=== PATIENT | male | born 1935 | race Caucasian/White ===

== ENCOUNTER → 2021-01-03 12:52 | Outpatient (CLI) | payer MEDICARE, SELFPAY ==
--- NOTE | 2021-01-03 12:55 | DI.MRI.S_ITS ---
PROCEDURE: MR LUMBAR SPINE WO CON INDICATIONS: Radiculopathy, lumbar region TECHNIQUE: Noncontrast sagittal T1 spin echo and T2 fast echo, sagittal STIR, axial T1 and T2 fast spin echo through the lumbar spine. In cases with scoliosis, additional coronal T2 fast spin echo may be performed. COMPARISON: [facility] [place], [place], XR LUMBAR SPINE 2 OR 3 VIEWS, 12/20/2020, 15:11. FINDINGS: Image quality: Excellent. Alignment and Curvature: There is straightening of normal lumbar lordosis. Minimal retrolisthesis of L1 on L2 is seen. Bone Marrow: Marrow is of normal overall signal. No acute vertebral body compression fractures. Spinal Cord: Conus medullaris terminates at the L1 level. Visualized cord demonstrates normal signal and size. Paraspinous Soft Tissues: No paravertebral masses. T12-L1: There is loss of disc signal. Mild diffuse disc bulge and bilateral facet arthrosis is seen with mild central canal stenosis, no significant neural foraminal narrowing. L1-L2: There is loss of disc signal and slight loss of disc height. Degenerative endplate changes are seen. Broad-based disc bulge and bilateral facet arthrosis with hypertrophy of ligamentum flavum is noted with mild to moderate central canal stenosis and bilateral neural foraminal narrowing. L2-L3: There is loss of disc height and degenerative endplate changes. Broad-based disc bulge and bilateral facet arthrosis with hypertrophy of ligamentum flavum is seen . There is moderate central canal stenosis and bilateral neural foraminal narrowing. L3-L4: Loss of disc height and disc signal is seen. Broad-based disc bulge and bilateral facet arthrosis with hypertrophy of ligamentum flavum is seen. There is moderate to severe central canal stenosis and bilateral neural foraminal narrowing. Bulging disc is seen contacting bilateral L3 nerve roots. L4-L5: Near complete loss of disc height and loss of disc signal is seen. Broad-based disc bulge and bilateral facet arthrosis with hypertrophy of ligamentum flavum is seen causing moderate to severe central canal stenosis and bilateral neural foraminal narrowing. There is compression of bilateral exiting L4 nerve roots. L5-S1: Loss of disc height and disc signal is seen. Diffuse disc bulge and bilateral facet arthrosis is seen with mild central canal stenosis and moderate to severe bilateral neural foraminal narrowing. There is compression of bilateral L5 nerve roots. IMPRESSION: 1. Degenerative disc bulge and bilateral facet arthrosis throughout lumbar spine causing moderate to severe central canal stenosis and bilateral neural foraminal narrowing more prominent at L3-4 and L4-5 levels as above. 2. No acute compression fracture or marrow edema. Minimal retrolisthesis of L1 on L2. Dictated by: Oswaldo Jurado M.D. on 01/03/2021 at 15:57 Approved by: Oswaldo Jurado M.D. on 01/03/2021 at 16:01
== END ==
PROVIDERS: Family Provider Internal Medicine; PCP Family Medicine; Referring Provider Orthopaedic Surgery Orthopaedic Surgery of the Spine; Visit Provider Orthopaedic Surgery Orthopaedic Surgery of the Spine
DX: M51.16 Intervertebral disc disorders with radiculopathy, lumbar region (principal); M51.17 Intervertebral disc disorders with radiculopathy, lumbosacral region; M47.26 Other spondylosis with radiculopathy, lumbar region; M47.27 Other spondylosis with radiculopathy, lumbosacral region; M48.061 Spinal stenosis, lumbar region without neurogenic claudication; M48.07 Spinal stenosis, lumbosacral region
CPT/HCPCS: 72148

== ENCOUNTER → 2021-05-27 14:19 | Outpatient (CLI) | payer MEDICARE, SELFPAY ==
[2021-05-27 14:51] LABS: Add Manual Diff / Slide Review NO; Basophils Absolute Auto 0 /uL (0-100); Basophils Percent Auto 0.5 % (0-2); Eosinophils Absolute Auto 500 /uL (0-450); Eosinophils Percent Auto 5.1 % (2-4); Hematocrit 39.6 % (41-53); Hemoglobin 13.6 g/dL (13.5-17.5); Lymphocytes Absolute Auto 2400 /uL (1100-4500); Lymphocytes Percent Auto 26.7 % (25-40); Mean Corpuscular HGB Conc 34.3 % (30-36); Mean Corpuscular Hemoglobin 30.7 PG (26-34); Mean Corpuscular Volume 89.4 fL (80-100); Monocytes Absolute Auto 700 /uL (0-900); Monocytes Percent Auto 7.2 % (3-14); Neutrophils Absolute Auto 5500 /uL (1500-7000); Neutrophils Percent Auto 60.5 % (50-75); Platelet Count 245 X10^3/uL (150-400); Red Blood Cell Count 4.43 X10^6/uL (4.5-5.9); Red Cell Distribution Width 13.1 % (11.6-14.8); White Blood Cell Count 9.1 X10^3/uL (4.5-11.0)
[2021-05-27 15:12] LABS: BUN Creatinine Ratio 16.1 (6-22); Blood Urea Nitrogen 20 mg/dL (9-20); Calcium 9.2 mg/dL (8.4-10.2); Carbon Dioxide 28 mmol/L (22-32); Chloride 104 mmol/L (98-107); Estimated Glomerular Filt Rate 55.4 mL/min (>60); Glucose 160 mg/dL (80-110); HEMOLYSIS < 15 (0-50); Potassium 4.7 mmol/L (3.4-5.1); Sodium 137 mmol/L (137-145)
[2021-05-27 15:15] LABS: Hemoglobin A1C% w Est Avg Glu 6.6 % (4.0-6.0)
== END ==
PROVIDERS: Family Provider Internal Medicine; PCP Family Medicine; Referring Provider Orthopaedic Surgery Orthopaedic Surgery of the Spine; Visit Provider Orthopaedic Surgery Orthopaedic Surgery of the Spine
DX: Z01.818 Encounter for other preprocedural examination (principal); R73.9 Hyperglycemia, unspecified; Z01.812 Encounter for preprocedural laboratory examination
CPT/HCPCS: 36415; 80048; 83036; 85025; 93005; 93010

== ENCOUNTER → 2021-07-11 11:38 | Outpatient (CLI) | payer MEDICARE, SELFPAY ==
[2021-07-11 12:56] LABS: COVID19 -Nasal RAPID Negative (Negative)
== END ==
PROVIDERS: Family Provider Internal Medicine; PCP Family Medicine; Visit Provider Family Medicine Sleep Medicine
DX: Z20.822 Contact with and (suspected) exposure to COVID-19 (principal)
CPT/HCPCS: 87635

== ENCOUNTER → 2021-07-11 12:38 | Outpatient (CLI) | payer MEDICARE, SELFPAY ==
--- NOTE | 2021-07-11 | DI.CT.S_ITS ---
PROCEDURE: CT LUMBAR SPINE WO CON INDICATIONS: Spinal stenosis, lumbar region with neurogenic cla TECHNIQUE: Noncontrast 3 mm thick sections acquired from the T12 level to the sacrum. Sagittal and coronal reformats were constructed. For radiation dose reduction, the following was used: automated exposure control. COMPARISON: [facility], MR, MR LUMBAR SPINE WO CON, 01/03/2021, 13:31. FINDINGS: Image quality: Excellent. Bones: There is normal bony alignment. No acute vertebral body compression fractures. No suspicious lytic or blastic bony lesions. No pars defects. T12-L1: Mild disc space narrowing and circumferential disc bulge without central or foraminal stenosis L1-L2: Mild disc space narrowing and circumferential disc bulge . Mild central and moderate bilateral foraminal stenosis. L2-L3: Disc space narrowing and circumferential disc bulge with hypertrophic facet joints results in moderate central stenosis. Moderate bilateral foraminal stenosis L3-L4: Disc space narrowing with circumferential disc bulge, hypertrophic facet joints and ligamentum flavum laxity results in severe central stenosis. Moderate bilateral foraminal stenosis noted. L4-L5: Disc space narrowing with circumferential disc bulge, hypertrophic facet joints and ligamentum flavum laxity all combined result in severe central stenosis. There is a severe right and moderate left foraminal stenosis L5-S1: Disc space narrowing with circumferential disc bulge results in mild central stenosis. Severe bilateral foraminal stenosis present. Soft tissues: No retroperitoneal masses or hematomas. Visualized aorta is normal in caliber. IMPRESSION: Multilevel degenerative disc disease and arthropathy results in varying degrees of central and foraminal stenosis including severe central stenosis at L3-4 and L4-5 Approved by: Chi Morrison M.D. on 07/11/2021 at 16:01
== END ==
PROVIDERS: Family Provider Internal Medicine; PCP Family Medicine; Referring Provider Orthopaedic Surgery Orthopaedic Surgery of the Spine; Visit Provider Orthopaedic Surgery Orthopaedic Surgery of the Spine
DX: M48.062 Spinal stenosis, lumbar region with neurogenic claudication (principal); M47.816 Spondylosis without myelopathy or radiculopathy, lumbar region; M51.36 Other intervertebral disc degeneration, lumbar region; M51.37 Other intervertebral disc degeneration, lumbosacral region; M48.07 Spinal stenosis, lumbosacral region; Z20.822 Contact with and (suspected) exposure to COVID-19
CPT/HCPCS: 72131; 87635; C9803

== ENCOUNTER 2021-07-15 14:27 | Observation (INO) | payer MEDICARE, SELFPAY ==
[2021-07-10 09:52] VITALS: BMI 26.4
[2021-07-14] VITALS (15 sets, daily range): BP systolic 104–161; BP diastolic 51–83; PULSE 15–90; RESP 9–18; TEMP 35.7–36.8; O2SAT 94–994; BMI 26.4
--- NOTE | 2021-07-14 | DI.RAD.S_ITS ---
PROCEDURE: XR LUMBAR SPINE 2-3V INDICATIONS: L3-4 L4-5 TLIF TECHNIQUE: 2 intraoperative views of the lumbar spine were acquired. COMPARISON: None. FINDINGS: Intraoperative images demonstrate posterior fusion of the mid/lower lumbar spine. IMPRESSION: Intraoperative imaging as above. Dictated by: Janette Gonzales M.D. on 07/14/2021 at 16:56 Approved by: Janette Gonzales M.D. on 07/14/2021 at 16:57
[2021-07-14] MEDS: LACTATED RINGERS 1,000 ML 42 ML IV ×2 (11:41→14:30)
[2021-07-14] MEDS: ACETAMINOPHEN 325 MG TABLET 975 MG PO (11:43)
--- NOTE | 2021-07-14 12:31 | PM.PREOP ---
Pre-operative Note COVID-19 COVID-19 status: Negative Result date/Date tested (Pos, Neg/Pending): 07/13/21 Criteria for continued procedure: Expected advancement of disease process, Possibility delay results in more complex future surgery or treatment, Increased loss of function, Continuing or worsening of significant or severe pain, Deterioration of the patient's condition or overall health, Delay expected to result in less-positive ultimate med/surg outcome and Untreated could increase risk of COVID contraction/morbidity/mortality Interval Note History & Physical reviewed/Exam performed by Physician: Yes Changes to H&P: No
--- NOTE | 2021-07-14 12:59 | PM.HP.1 ---
History of Present Illness History of Present Illness Date Patient Seen: 07/14/21 Time Patient Seen: 12:59 Date of Onset of Symptoms: 06/19/20 Chief complaint: OPB Narrative: Mr. Kruger is here for scheduled lumbar surgery. He has been having chronic back pain and progressive bilateral leg weakness, numbness and pain. He failed conservative management and elected to proceed with surgery. Patient History Medical History Asthma Graves' disease History of prosthetic unicompartmental arthroplasty of left knee (~1999) HTN (hypertension) Hyperthyroidism Precancerous lesion Sciatica Spinal stenosis Surgical History History of colon resection (~1969) History of total left hip replacement (~1999) Hx of sinus surgery (~2018) Family & Social History Social History: household members spouse Prior Living Arrangements House Safety & Behavioral: Feels Safe in Current Yes Environment Been Physically Hurt or No Threatened By a Person Suicidal Ideation Description None Suicide Plan Description No Plan Tobacco & Substance use: Smoking Status Never smoker alcohol intake current alcohol intake frequency a few times a week Substance Use Type does not use Meds Home Medications and Allergies Home Medications Medication Instructions Recorded Confirmed Type acetaminophen 500 mg tablet 1,000 mg PO QAM PRN 07/10/21 07/14/21 History amlodipine 5 mg tablet 5 mg PO DAILY 07/10/21 07/14/21 History fluticasone 500 mcg-salmeterol 50 1 inh INHALATION QAM 07/10/21 07/14/21 History mcg/dose blistr powdr for inhalation (Advair Diskus) lisinopril 40 mg tablet 40 mg PO DAILY 07/10/21 07/14/21 History metoprolol succinate 100 mg 100 mg PO DAILY 07/10/21 07/14/21 History tablet,extended release 24 hr Allergies Allergy/AdvReac Type Severity Reaction Status Date / Time Azithromycin Allergy Severe Hives Uncoded 07/14/21 11:16 Exam Vital Signs (past 8 hours): - 07/14/21 11:18 Temperature 98.3 F Pulse Rate 90 Respiratory Rate 18 Blood Pressure 161/83 H Pulse Oximetry 100 Oxygen Delivery Method Room Air Back/Spine/Pelvis Other: Pain with ROM in lower lumbar spine. Neuro Other: 4/5 motor strength in bilateral EHL/TA. Sensibility decreased in bilateral L4, L5 dermatome. + straight leg raise to LLE. Assessment & Plan Assessment & Plan narrative: Risks for surgery include but not limited to bleeding, infection, nerve/dura/bladder/bowel/blood vessel injury, need for additional procedure, even . Pt understands and would like to proceed with surgery. I scheduled him for L4-5, L5-S1 TLIF. Time Spent With Patient Critical Care time: I spent a total of [] minutes of critical care time on this patient's care today; this time is exclusive of procedural time.
[2021-07-14] MEDS: CEFAZOLIN 2 GM/20 ML SYRINGE IV ×2 (13:10→20:14)
--- NOTE | 2021-07-14 13:42 | SUR.OPER ---
Prone on spine table, head in foam head support, padded chest and pelvic supports, gel pad at knees, lower legs supported by pillows; nipples, genitalia and toes free of pressure, arms secured on foam padded arm boards at <90 degrees abduction. Tape over blanket at thigh secured to table.
[2021-07-14] MEDS: BUPIVACAINE 0.25% (PF) 30 ML, EPINEPHrine 0.3 MG INJ (13:48)
[2021-07-14] MEDS: BUPIVACAINE LIPOSOME 266 MG/20 ML VIAL INJ (13:49)
--- NOTE | 2021-07-14 16:53 | PM.OP.1 ---
Operative Date/Time/Diagnoses Date of procedure: 07/14/21 Time of procedure: 12:30 Pre-op diagnosis: 1. L3-4, L4-5 spinal stenosis with neurogenic claudication 2. L3-4, L4-5 spondylolisthesis Post-op diagnosis: same Procedure & Clinicians Procedure: 1. L3-4, L4-5 Postero-lateral and posterior interbody fusion 2. L3-4, L4-5 interbody cage placement. 3. L3-4, L4-5 decompressive laminectomy with bilateral facetecomies 4. L3-4, L4-5 Posterior segmental instrumentation 5. [place] of bone marrow from iliac crest 6. Utilization of microsurgical technique and operating microscope Same procedure as scheduled: Yes Indications: Patient has been having chronic back pain and worsening lumbar radiculopathy. Patient failed multiple conservative management with worsening pain weakness and numbness in her lower extremity. Patient has been having difficulty performing activity of daily living. After discussing risks benefits of treatment options, patient elected proceed with surgery. Surgeon: Stephen Baker Welding Foreman: Eleanor Guadarrama Click Yes if Unassisted: No Anesthesia Type: General Operative Notes Closure Type: primary Specimen(s): none sent Prosthetic devices, grafts, tissues, transplants, or devices: Globus CREO MIS screws, Rise cages Applied: catheter Estimated Blood Loss (mL): 150 Blood products transfused: none Procedure in detail: Patient was seen in the preoperative area. Risks and benefits of the surgery was discussed with the patient. Informed consent was obtained from the patient and placed in the chart. Surgical site was marked. Patient was taken to the operative room. General anesthesia was administered. Prophylactic antibiotic was given to the patient less than 30 min before the incision was made. Patient was placed into a prone position on the Santi table. Patient's back was then prepped and draped in the sterile fashion. Time-out was performed at this time. After patient was prepped and draped, patient's PSIS was palpated and marked bilaterally. Small 1 cm incision was made over the PSIS for placement of the reference probes. Two trocar was placed into the PSIS 1 on each side. The reference probe was attached to the trocar of the reference apparatus. At this time the C-arm imaging was used to confirm AP and lateral of L3, L4-L5 vertebrae and merged the C-arm imaging using the [employer] robotic navigation system with the CT of the lumbar spine. After successful merging was completed and confirmed, skin marker was used to tyson out the skin incision using the [employer] robotic arm. Bilateral incision was made at this time. Pre templated trajectory was used and guided using the [employer] robotic navigation system for bilateral L3 L4, L5 pedicle screw placement. This was done by using the robotic arm to guide the high-speed bur to make a cortical entry point. Next a drill was placed also using the robotic arm and guided using the navigation system drilling partially through bilateral L3, L4, L5 pedicles. Next L3, L4, L5 pedicle screws it was pre templated and measured was placed onto the power cmv driver and inserted into the pedicles bilaterally. After all 6 screws were placed C-arm imaging was taken of both AP and lateral to confirm the placement. Excellent placement of the screws were confirmed and a matched precisely with the pre planned screw placement using the navigation system. MARs retractor was inserted using [employer] guidence. Globus MARS retractors was placed inside the incision and docked onto the L3, L4 lamina. Using microsurgical technique and operating microscope, a L4, L5 laminectomy and L3-4, L4-5 facetectomy was performed using a Kerrison rongeur. Patient was found have severe lateral recess and neural foramen stenosis which was fully decompressed after the laminectomy facetectomy. More than 75% of the facets were removed during the process of decompression rendering L3-4, L4-5 level grossly unstable and required a fusion procedure at the same time. The disc space at L3-4, L4-5 was identified, and a total diskectomy was performed at L3-4, L4-5 level. The endplates were decorticated using a rasp and shaver. The total diskectomy and decortication was performed at L3-4, L4-5 level in order to to accomplish a L3-4, L4-5 fusion. The local bone from the laminectomy and facetectomy was saved for local bone grafting. After the total diskectomy and decortication was completed, Trifecta bone graft material was combined with local bone that was harvested earlier. At this time, a separate skin is incision was made over the iliac crest. A Jamshidi needle was inserted into the iliac crest through a separate skin incision. 5 cc of bone marrow aspiration was obtained through the separate skin incision using a Jamshidi needle from the iliac crest. The bone marrow aspiration was combined with local bone and the Trifecta bone grafting material. The bone grafting material was placed into the L3-4, L4-5 interbody space along with expandable cages. One cage each was inserted into the L3-4 L4-5 interbody space along with bone graft material. The cage was expanded to its maximum height using the torque limiting screwdriver. The disc preparation as well as the cage insertion were also performed under navigation guidance. After the cage was placed, AP and lateral C-arm imaging was taken to confirm placement of the cage and excellent position was confirmed. Globus MARS retractor was inserted and docked onto the L3-4, L4-5 posterolateral gutter on the right side. Using the power drill, posterior-lateral decortication was performed at L3-4, L4-5 level until bleeding cortical bone was identified. The remaining bone grafting material was placed into the L3-4, L4-5 posterior lateral gutter he order to accomplish posterolateral fusion at the L3-4, L4-5 level. At this time the tulips were attached to the L3, L4-L5 pedicle screw shanks. After measuring the length of the rods, they were inserted into the tulips of the pedicle screws and locked in place using locking caps and torque limiting screwdriver bilaterally. Total 6 caps and 2 titanium rods was used in order to complete the posterior instrumentation construct. After all the hardware was placed, and confirmed with AP and lateral C-arm imaging, the wound was then irrigated with sterile normal saline and packed with Ray-Chung gauze for 3 min to accomplish hemostasis. After the gauze was removed the deep fascia was closed with #1 Vicryl suture. The subcutaneous layer was closed with 2-0 Vicryl. The skin was closed with skin silvia. Patient tolerated the procedure well. There were no complications. Neuro monitoring system was used to monitor patient's neurologic status throughout entire procedure. There was no disturbance of the neural monitoring signals throughout the case. Complications: none Post-operative Condition: stable Disposition: PACU Plan for aftercare: Admit to inpatient hospital
--- NOTE | 2021-07-14 18:09 | SUR.PHASEI ---
1715 ice pack to lower back
[2021-07-14] MEDS: MAG HYDROX/ALUM/SIMETH 30 ML UDC PO (20:14)
[2021-07-14] MEDS: ACETAMINOPHEN 325 MG TABLET 650 MG PO (20:14)
[2021-07-14] MEDS: ONDANSETRON 4 MG/2 ML INJ IV (20:15)
[2021-07-14] MEDS: SODIUM CHLORIDE 0.9% 1,000 ML 100 ML IV (20:15)
[2021-07-14] MEDS: hydrOXYzine pamoate 25 MG CAPSULE PO (20:15)
[2021-07-14] MEDS: SENNOSIDES 8.6 MG TABLET 17.2 MG PO (20:18)
[2021-07-14] MEDS: DOCUSATE 100 MG CAPSULE PO (20:18)
[2021-07-14] MEDS: ALBUTEROL 2.5 MG/3 ML NEB (ADULT) INH (21:19)
[2021-07-14] MEDS: BUDESONIDE 0.5 MG/2 ML NEB INH (21:19)
[2021-07-15] VITALS (11 sets, daily range): BP systolic 110–145; BP diastolic 42–64; PULSE 77–98; RESP 16–20; TEMP 36.3–37.8; O2SAT 95–98
[2021-07-15] MEDS: OXYCODONE IR 5 MG TABLET 10 MG PO ×3 (04:18→17:20)
[2021-07-15] MEDS: CEFAZOLIN 2 GM/20 ML SYRINGE IV (04:34)
[2021-07-15 05:15] LABS: Hematocrit 35.5 % (41-53); Hemoglobin 11.8 g/dL (13.5-17.5)
--- NOTE | 2021-07-15 05:27 | PC.NURSE ---
admit from PACU, s/p L3-L4, L4-L5 TLIF patient is drowsy, oriented x 3-4. mentation improved as shift went along. patient verbalized i had hallucinations after surgery. and c/o dizziness and general malaise. cold wet cloth applied to forehead. VS obtained, all stable. afebrile. able to log roll w/ 2pa, + CSM checks. Call to his Isa per patient request, and they spoke before HS. IVF, meds given. declined pain meds until 0, and slept well thru the NOC. oxycodone 10mg given for BTP. linen changed, new ice bag applied to lower spine incision. declined SCDs in the AM, wore them most of the NOC. LUE PIV patent, NS at 100/hour. skin around PIV is slightly reddened, see skin assessment. Dressing to spinal incision is CDI tele: NSR. turned this AM, now laying on R side, facing the door, w/ legs bent, supported w/ pillows. call light w/in reach.
--- NOTE | 2021-07-15 07:20 | PM.PNPO.1 ---
Subjective Subjective Date Patient Seen: 07/15/21 Time Patient Seen: 07:58 Interval history: Sitting up in bed comfortably. Complains of back pain, denies leg pain but still has BLE tingling that was present prior to surgery. Has not been OOB. Exam Vital Signs (past 8 hours): - 07/15/21 03:30 Temperature 97.3 F L Pulse Rate 95 H Respiratory Rate 16 Blood Pressure 124/61 Pulse Oximetry 97 Oxygen Delivery Method Room Air Oxygen Flow Rate 10 Narrative Exam Narrative: 5/5 strength in quadriceps, hamstrings, DF, PF, EHL bilaterally. Sensation to light touch intact in BLE. Calves soft, compressible, nontender and without palpable cords or masses. Const General: cooperative, healthy appearing and comfortable Orientation: alert, awake and oriented x3 Objective Labs Result Diagrams: 07/15/21 04:46 Labs: Laboratory Results - last 24 hr 07/15/21 04:46 Hgb 11.8 L Hct 35.5 L PFSH Medical History Asthma Graves' disease History of prosthetic unicompartmental arthroplasty of left knee (~1999) HTN (hypertension) Hyperthyroidism Precancerous lesion Sciatica Spinal stenosis Surgical History History of colon resection (~1970) History of total left hip replacement (~1999) Hx of sinus surgery (~2019) Social History household members: spouse Smoking Status: Never smoker alcohol intake: current Assessment & Plan Post-op Assessment and plan (1) S/P lumbar fusion: Assessment and Plan narrative: D/c catheter. PT to evaluate and mobilize. Continue multimodal pain control w/ Tylenol, Vistaril, oxycodone. (2) Acute postoperative anemia due to expected blood loss: Assessment and Plan narrative: Asymptomatic; no intervention required at this time. Postoperative Procedures: Procedures Operation Date: 07/14/21 12:15 Actual Procedure Side Surgeon p L3-4, L4-5 TLIF with posterior instrumentation-robot Stephen Baker MD Postoperative day: 1 Postoperative plan narrative: Likely discharge home tomorrow. Quality VTE Deep Vein Thrombosis/Pulmonary Embolism Present on Admission: No
[2021-07-15] MEDS: BUDESONIDE 0.5 MG/2 ML NEB INH (08:51)
[2021-07-15] MEDS: ALBUTEROL 2.5 MG/3 ML NEB (ADULT) INH (08:51)
[2021-07-15] MEDS: METOPROLOL ER 50 MG TABLET 100 MG PO (09:15)
[2021-07-15] MEDS: DOCUSATE 100 MG CAPSULE PO ×2 (09:15→20:10)
[2021-07-15] MEDS: ACETAMINOPHEN 325 MG TABLET 650 MG PO ×2 (09:17→17:19)
[2021-07-15] MEDS: AMLODIPINE 5 MG TABLET PO (09:17)
[2021-07-15] MEDS: lisinopriL 20 MG TABLET 40 MG PO (09:17)
[2021-07-15] MEDS: hydrOXYzine pamoate 25 MG CAPSULE PO ×2 (09:20→17:19)
--- NOTE | 2021-07-15 09:35 | PT.IIE ---
Current Diagnoses Acute posthemorrhagic anemia (07/14/21) Other spondylosis with radiculopathy, lumbar region (07/14/21) Spinal stenosis, lumbar region with neurogenic claudication (07/14/21) Arthrodesis status (07/14/21) Surgery Performed Operation Date: 07/14/21 12:15 Actual Procedures p L3-4, L4-5 TLIF with posterior instrumentation-robot - Stephen Baker MD Medical History (Last Reviewed 07/14/21 @ 13:00 by Stephen Baker MD) Asthma Graves' disease History of prosthetic unicompartmental arthroplasty of left knee (~1999) HTN (hypertension) Hyperthyroidism Precancerous lesion Sciatica Spinal stenosis Physical Therapy Inpatient Evaluation/Re-Eval M1 PT/OT-IP Prior Functional Status Start: 07/15/21 12:25 Freq: NEEDED Status: Active Protocol: Document 07/15/21 09:35 AB (Rec: 07/15/21 12:37 AB [email or web address]) Medical Review Prior Functional Status Medical History Reviewed Yes Communication able to make needs known Mobility and Gait pt stated that he is modified independent with all mobilities and ambultion using a FWW Social History Household Members spouse Living Arrangements House Number of Floors (Floors) Two Floors Number of Stairs To Enter/Railing? pt lives on a split level house: 7 steps L rail to enter the house : with 7 steps more with L rail to get up into main living area or go down 7 steps R rail descending to bedroom level Home Environment Standard Height Toilet,Tub/ Shower Doors Home Equipment Front Wheel Walker,Shower Seat with Backrest,Hand Held Shower,Long Handled Shoe Horn, Grab Bars In Shower M2 PT-IP Current Condition Start: 07/15/21 12:25 Freq: NEEDED Status: Active Protocol: Document 07/15/21 09:35 AB (Rec: 07/15/21 12:37 AB [id number]) Physical Therapy Current Condition Current Condition Evaluation Date 07/15/21 Treatment Diagnosis s/p L3-4, L4-5 TLIF; difficulty in walking Onset Date 07/14/21 M3 PT-IP Subjective Start: 07/15/21 12:25 Freq: NEEDED Status: Active Protocol: Document 07/15/21 09:35 AB (Rec: 07/15/21 12:37 AB [email or web address]) Subjective Physical Therapy Visit Type Type Initial Evaluation Visit Start Time 09:35 Visit Stop Time 10:11 Total Visit Minutes 36 Number of QUALITY CONTROL SPECIALIST Visits 0 Physical Therapy Visit Comments Patient Comments agreeable to do PT Therapy Pain Assessment Pain When Pain Assessed At Rest Pain Present Pain Present Pain Reported Location Back Intensity 2 Scale Used Numeric (0 - 10) Pain Behaviors Facial Grimacing,Guarding Pain Management Techniques Distraction,Modification of Treatment,Re-positioning, Timing of Activity with Medications M4 PT-IP Mobility and Gait Start: 07/15/21 12:25 Freq: NEEDED Status: Active Protocol: Document 07/15/21 09:35 AB (Rec: 07/15/21 12:37 [email or web address]) PT-Bed Mobility Assessment Rolling Type of Rolling Log Rolling Level of Assist Minimal Assistance Supine to Sit Supine to Sit Minimal Assistance PT-Transfer Assessment Sit to and From Stand Sit to and from Stand Moderate Assistance,1 Person Assistance,Use of Upper Extremities Equipment Transfer Assistive Device Gait Belt,Front Wheeled Walker Orthotic/Prosthetic Devices or Brace: No Transfers Transfer Destination Chair Transfer Technique ambulated Transfer Ability Level of Assist Moderate Assistance,1 Person Assistance,Use of Upper Extremities Comments Mobility Comments educated pt regarding back precautions and log roll bed mobility. pt completed log roll bed mobility supine to sit min A and max cues. pt able to sit on EOB SBA. completed sit to stand mod A and cues and completed transfer to chair using FWW mod A and cues. slight R knee buckling in standing requiring cues for quads activation and stability. completed sit to stand from chair mod A and ambulated in room using FWW mod A ~ 20 ft. pt agreed to sit up on chair. positioned on chair. call light and table placed within reach. asked pt regarding caregiver training and stated that his spouse does not drive much and can only drive to pick him up . informed pt that if needed, spouse has to come in for caregiver training and agreed. Gait Assessment Gait Gait Assistance Required: Moderate Assistance Distance (Feet) 20 Able to Maintain Weight Bearing Status Yes During Gait Assistive Devices Assistive Device Gait Belt,Front Wheeled Walker Orthotic/Prosthetic Devices or Brace: No Gait Deviations General Gait Pattern Antalgic,Decreased Stride Length,Decreased Feet Clearance Factors Limiting Gait Function Factors Limiting Gait Function Decreased Activity Tolerance, Decreased Strength,Difficulty Following Directions,Limited Range of Motion,Pain,Poor Balance,Poor Safety Awareness PT-Balance Assessment Sitting Balance and Reactions Static Sitting Balance Ability Good Dynamic Sitting Balance Ability Good Standing Balance and Reactions Static Standing Balance Ability Fair Dynamic Standing Balance Ability Poor Device Used FWW M5 PT-IP Objective Assessments Start: 07/15/21 12:25 Freq: NEEDED Status: Active Protocol: Document 07/15/21 09:35 AB (Rec: 07/15/21 12:37 AB [email or web address]) Orientation Orientation/Cognition Level of Alertness Alert Orientation Name,Place,Situation Language Function Ability No Deficits Noted Safety Awareness Decreased Safety Awareness Memory Description Short Term Impaired Gross Range of Motion Lower Extremity ROM Assessment Within Functional Limits Strength Lower Extremity Strength Assessment Right Impaired Hip 4-/5 Knee 3+/5 Coordination Assessment Gross Coordination Gross Coordination WNL Sensation Assessment Sensation Gross Sensation WNL Muscle Tone Muscle Tone WNL Yes M6 PT-IP Treatment Start: 07/15/21 12:25 Freq: NEEDED Status: Active Protocol: Document 07/15/21 09:35 AB (Rec: 07/15/21 12:37 AB [email or web address]) Physical Therapy Treatment Education Education Provided Precautions,Weight Bearing Status,Post-Op Packet,Safety M7 PT-IP Assessment and Plan Start: 07/15/21 12:25 Freq: NEEDED Status: Active Protocol: Document 07/15/21 09:35 AB (Rec: 07/15/21 12:37 AB [email or web address]) PT Summary Assessment and Plan Potential Rehabilitation Potential Good Status of Condition at Evaluation Evolving Summary Impairments Pain,ROM,Strength,Balance, Coordination,Sensation,Tone, Cognition,Bed Mobility, Transfers,Gait,Activity Tolerance Assessment Summary pt requiring mod A for transfers and ambulation using FWW and max cues. pt plans to go home and spouse to assist him. will conduct caregiver training when appropriate and pt also has to complete stair climbing training prior to d/c. will continue to assess progress. Goals Bed Mobility Goal Standby Assistance Transfer Goal Standby Assistance,Front Wheeled Walker Gait Goal Standby Assistance,Front Wheel Walker Gait Distance 200 Other Goals up/down 7+7 steps using L rail ascending SBA Days to Meet Goals 5 Frequency of Treatment Frequency Of Treatment Twice a Day Treatment Plan Physical Therapy Treatment Plan Bed Mobility Training,Transfer Training,Gait Training, Therapeutic Exercise,Balance Retraining,Post Op Education, Discharge Planning,Hot or Cold Pack,Neuromuscular Re-ed, Coordination Retraining,Manual Therapy Precautions Lumbar Precautions Log Roll,No Twisting,Limit Bending,Lifting Restriction of 10 lbs,Gait Belt above Incisional Area Recommendations To Nursing Amount of Assist Needed 1 Person Assist Discharge Recommendations PT Discharge Recommendations Home with 30/11 Assist Available,Home Health Transportation Needs at Discharge Private Vehicle,Wheelchair/ Cabulance
--- NOTE | 2021-07-15 10:47 | CM.DANOTE ---
DCP: Case received, EMR reviewed and met with patient. Introduced self and role. Was able to obtain information regarding patient's baseline activity status at home prior to surgery. DCP assessment completed with information currently available. Patient is an 86 year old male who admitted yesterday morning to the care of the orthopedic team. PCP: Dr. Sheriff. Payer: confirmed: [employer] Medicare. Patient came to the hospital via private vehicle for a surgical procedure. Patient had L3-4, L4-5 postero-lateral and posterior interbody fusion. Patient has history of spinal stenosis. Met with patient in his room. He is alert and oriented, pleasant. He resides in [place] with his spouse, Isa. At his baseline, he has a FWW, has been driving. Discussed discharge planning, he is hopeful for home, but willing to go to skilled rehab if needed. He has not yet been up with P.T. Patient is [employer] Medicare, and facility would need auth before admission. Called Nikia at [facility] and asked her to review. P: DCP to continue to follow. Plan is home, but will depend upon how he does with P.T. According to ortho note, patient most likely will discharge tomorrow depending upon P.T. Cherrie Palomo RN/Full Stack Python Developer Discharge Planning/Care Management CM Discharge Assessment Start: 07/15/21 10:45 Freq: Status: Active Protocol: Document 07/15/21 10:45 (Rec: 07/15/21 10:47 [id number]) Discharge Planning Assessment Assigned Multi Mission Helicopter Aircrewman Cherrie Palomo RN/Full Stack Python Developer Advance Directives? No History Provided By Patient,Medical Record Prior Living Arrangements House Household Members spouse Type of transporation used prior to Drives own vehicle admit DME Already Rented / Owned FWW / Walker Barriers to Discharge No Discharge Plan Home Referrals Initiated Intermediate Additional Comment Sent to [facility] for them to review as back up Whiteboard Updated in Patient Room with Yes name and ext. # of Multi Mission Helicopter Aircrewman Review Status In Process Next Review Type Continued Stay Review Pre-Anesthesia Assessment Start: 07/10/21 09:52 Freq: Status: Active Protocol: Document 07/10/21 09:52 CAB (Rec: 07/10/21 10:46 CAB [id number]) Pre-Anesthesia Assessment Patient Information Reviewed Via Phone Assessment Assessment Completed With Patient Diagnostic Results BMP/CMP,CBC,EKG Comment Labs/ECG @ [facility] 05/27/21, COVID screen @ [facility] 07/11/21 Primary Care Provider Tobias Mccloud Seen Specialist in Last 12 Months Yes Specialist Seen Director Economic,Orthopedist Primary Language Belarusian Hearing Examiner Required No Height 6 ft Weight 195 lb Body Mass Index (BMI) 26.4 Hearing Ability Normal Visual Assist Glasses Dentition Type Teeth, Natural Present,Partial - Upper Barriers to Learning None Other Aids No Hx Anesthesia Reactions No Hx Family Anesthesia Reaction No Hx Malignant Hyperthermia No Hx Blood Transfusions No: Pt unsure Anesthesia Review Requested No alcohol intake current alcohol intake frequency a few times a week Smoking Status Never smoker Substance Use Type does not use Pain Present Pain Reported Musculoskeletal Symptoms Abnormal Gait,Back Pain, Difficulty Walking,Muscle Weakness,Radiating Pain into Limb History of Falling (Recent or History of No ) Patient is completely paralyzed or No completely immobile Prosthesis or Orthotic Device Front Wheel Walker Mental Status Oriented to own ability Is patient on oxygen? No Does patient have PARKER/SOB No Hx Sleep Apnea No Currently Taking a Beta Humberto Yes: Metoprolol Hx Chest Pain No Hx SOB No Hx Syncope or Dizziness Yes: Occasional dizziness with standing too quickly Anti-Coagulant Therapy No Has a Organ Fixer No Cardiac Testing No Hx Pacemaker/ICD No Pacemaker Rep Required? No Cardiac Clearance Received Not Applicable Diet Type At Home Vegetarian dysphagia No Urinary Catheter Present No Hx Urinary Self Catheterization No Diabetes No Hx Drug Resistant Organism No Presence of External or Internal Medical Yes: Left hip/knee Devices Have you had any close contact with No someone diagnosed with COVID-19? Received a COVID vaccine? Yes Received all doses? Yes Marital Status Lives With spouse Prior Living Arrangements House Number of Floors (Floors) Two Floors Support System Spouse Does the Patient Have Assistance After Yes Surgery Patient Discharge Plan Description Return Home Comment Pt advised 2-3 day length of stay per surgeon Feels Safe in Current Environment Yes Been Physically Hurt or Threatened By a No Person in Current Environment Do you have thoughts of harming yourself None or others? Are you currently considering suicide? No Do you have a plan to hurt yourself or No Plan others? Do You Have Any Spiritual Beliefs That No May Affect Your HC Choices? Do You Have Any Cultural Practices That No May Affect Your HC Choices? Who Can We Speak to About Patient's Care Family, friends Identifying Code for Release of Patient Declines to issue Information Health Care Proxy/Next of Kin Isa () Health Care Proxy Emergency Contact Name Isa () Emergency Contact Advance Directives? No Power of Instructor Flying No PAC Instructions Durable medical equipment, Medications to take/avoid, Nasal antibiotic,No ETOH/ petroleum product on skin DOS, NPO,Post-op transportation,Pre -surgical wash,Sturdy shoes/ comfortable clothes,Do not bring valuables and remove jewelry
--- NOTE | 2021-07-15 11:03 | OT.IP.EVAL ---
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) HTN (hypertension) Hx of sinus surgery (~2018) Hyperthyroidism Precancerous lesion Sciatica Spinal stenosis Surgical History (Last Reviewed 07/14/21 @ 13:00 by Stephen Baker MD) History of colon resection (~1969) History of total left hip replacement (~1999) Hx of sinus surgery (~2018) Occupational Therapy Inpatient Evaluation/Re-Eval M1 PT/OT-IP Prior Functional Status Start: 07/15/21 11:08 Freq: NEEDED Status: Active Protocol: Document 07/15/21 11:09 [facility] (Rec: 07/15/21 11:27 [facility] [id number]) Medical Review Prior Functional Status Medical History Reviewed Yes Communication Independent. Mobility and Gait Pt states due to his back pain has been using a FWW. Activities of Daily Living and IADL's Pt states needing increased time for ADL and IADL needs. Social History Household Members spouse Living Arrangements House Number of Floors (Floors) Two Floors Number of Stairs To Enter/Railing? Split level from the front door 7 steps with left rail up and wall on the right side to get to the main level. Home Environment Standard Height Toilet,Tub/ Shower Doors Home Equipment Front Wheel Walker,Shower Seat without Backrest,Hand Held Shower,Long Handled Shoe Horn, Grab Bars Near Toilet,Grab Bars In Shower M2 OT-IP Current Condition Start: 07/15/21 11:08 Freq: Status: Active Protocol: Document 07/15/21 11:09 [facility] (Rec: 07/15/21 11:27 [facility] [id number]) Occupational Therapy Current Condition Current Condition Evaluation Date 07/15/21 Treatment Diagnosis S/p L3-4, L4-5 TLIF Post Operative Precautions Lumbar Precautions Log Roll,No Twisting,Limit Bending,Lifting Restriction of 10 lbs,Gait Belt above Incisional Area M3 OT- IP Subjective and Pain Start: 07/15/21 11:08 Freq: Status: Active Protocol: Document 07/15/21 11:09 [facility] (Rec: 07/15/21 11:27 [facility] [id number]) OT- Subjective Occupational Therapy Visit Type Type Initial Evaluation Visit Start Time 10:30 Visit Stop Time 11:03 Total Visit Minutes 27 Occupational Therapy Visit Comments Patient Comments Pt agreed to get up to brush his teeth. Patient/Caregiver Goals TO go home. OT Pain Assessment Pain When Pain Assessed During Mobility Pain Present Pain Present Denied Pain M4 OT- IP ADL's Start: 07/15/21 11:08 Freq: Status: Active Protocol: Document 07/15/21 11:09 [facility] (Rec: 07/15/21 11:27 [facility] [id number]) OT OUD-[id number] General Evaluation Self-Feeding Ability Independent OT ADL-Grooming General Evaluation Grooming Ability Standby Assistance Areas Needing Assistance Retrieving/Set-up of Grooming Items Comments OT Grooming Comments Able to do while standing at the sink with FWW. OT ADL-Oral Care General Eval Oral Care Ability Standby Assistance Comments Oral Care Comments Cues to hinge at his hips or spit into a cup to best follow his back precautions OT ADL-Dressing General Eval Lower Body Dressing Ability Standby Assistance Comments OT Dressing Comments Pt able to comfortably cross his legs over to trip/doff his socks. Pt states has a long handled shoe horn at home and states has no OT needs for dressing. OT ADL-Toileting Comments OT Toileting Comments Pt not having to go. Pt states feels that he will be able to lean over to wipe. Able to suggest another option of standing with FWW and wiping. OT ADL-Bathing Comments OT Bathing Comments Pt not wanting to do at this time and insists that he will do it at home. M5 OT- IP IADL's Start: 07/15/21 11:08 Freq: Status: Active Protocol: Document 07/15/21 11:09 [facility] (Rec: 07/15/21 11:27 [facility] [id number]) OT-Instrumental Activities of Daily Living Home Safety Awareness Awareness of Need for Assistance at Home Good Awareness Ability to Problem Solve Emergency Able to Problem Solve Situations Home Safety Comments Pt has a supportive at home to assist with his needs. M6 OT- IP Functional Cognition Start: 07/15/21 11:08 Freq: Status: Active Protocol: Document 07/15/21 11:09 [facility] (Rec: 07/15/21 11:27 [facility] [id number]) Cognitive Factors Limiting Selfcare Function Cognitive Ability Level of Alertness Alert Patient Orientation Name,Place,Situation Attention Span Ability Capable of Focused Attention, Capable of Sustained Attention Ability to Follow Commands Able to Follow One Step Commands Safety Awareness Decreased Ability to Apply Precautions Cognitive Comments Cognitive Assessment Comments VC to back the fww all the way back before sitting down. Pt able to recall all his back precautions. OT- Vision and Hearing OT- Hearing Assessment OT- Hearing Assessment WFL OT- Vision Assessment Visual Acuity Glasses All The Time M7 OT- IP Mobility and Balance Start: 07/15/21 11:08 Freq: Status: Active Protocol: Document 07/15/21 11:09 [facility] (Rec: 07/15/21 11:27 [facility] [id number]) OT-Transfer Assessment Sit to and From Stand Sit to and from Stand Contact Guard Assistance Transfers Transfer Ability Contact Guard Assistance Technique Transfer Destination Chair Devices Transfer Assistive Devices Gait Belt,Front Wheeled Walker Comments Mobility Comments CGA to stand and walk to and from the recliner to the sink. OT- Balance Assessment Sitting Balance and Reactions Static Sitting Balance Ability Good Dynamic Sitting Balance Ability Good Standing Balance and Reactions Static Standing Balance Ability Fair Dynamic Standing Balance Ability Fair M8 OT- IP Objective Assessments Start: 07/15/21 11:08 Freq: Status: Active Protocol: Document 07/15/21 11:09 [facility] (Rec: 07/15/21 11:27 [facility] [id number]) OT-Muscle Tone Assessment Muscle Tone WNL Yes M9 OT- IP Assessment and Plan Start: 07/15/21 11:08 Freq: Status: Active Protocol: Document 07/15/21 11:09 [facility] (Rec: 07/15/21 11:27 [facility] [id number]) OT Summary Assessment and Plan Potential Rehabilitation Potential Good Analytic Complexity at Evaluation Low Summary OT Impairments Balance,Functional Mobility, Dressing,Toileting,Bathing, Toilet Transfers,Shower Transfers Progress Towards Goals Progressing Toward Goals Assessment Summary Pt low complexity and main barriers are steps, bed mobility and will need assist for some ADl and IADL needs. Pt when medically stable to go home with his . Pt states not wanting to shower here at the hospital prior to going home. OT to touch base with him to finalize all OT needs tomorrow. Goals Dressing Goal Independent Toileting Goal Independent Bathing Goal Independent Toilet Transfer Goal Independent Shower Transfer Goal Independent Days to Meet Goals 4 Frequency of Treatment Frequency Of Treatment Once a Day Treatment Plan OT Treatment Plan ADL Training,Functional Cognition Training,Functional Mobility,Patient/Family Education,Discharge Planning Discharge Recommendations OT Discharge Recommendations Home with Assistance Transportation Needs at Discharge Private Vehicle
--- NOTE | 2021-07-15 13:05 | PT.IPTN ---
Current Diagnoses Acute posthemorrhagic anemia (07/14/21) Other spondylosis with radiculopathy, lumbar region (07/14/21) Spinal stenosis, lumbar region with neurogenic claudication (07/14/21) Arthrodesis status (07/14/21) Surgery Performed Operation Date: 07/14/21 12:15 Actual Procedures p L3-4, L4-5 TLIF with posterior instrumentation-robot - Stephen Baker MD Physical Therapy Treatment Note M2 PT-IP Current Condition Start: 07/15/21 12:25 Freq: NEEDED Status: Active Protocol: Document 07/15/21 09:35 AB (Rec: 07/15/21 12:37 AB [email or web address]) Physical Therapy Current Condition Current Condition Evaluation Date 07/15/21 Treatment Diagnosis s/p L3-4, L4-5 TLIF; difficulty in walking Onset Date 07/14/21 M3 PT-IP Subjective Start: 07/15/21 12:25 Freq: NEEDED Status: Active Protocol: Document 07/15/21 13:05 AB (Rec: 07/15/21 15:24 AB [email or web address]) Subjective Physical Therapy Visit Type Type Treatment Note Visit Start Time 13:05 Visit Stop Time 13:30 Total Visit Minutes 25 Number of HEALTH SAFETY MANAGER Visits 0 Physical Therapy Visit Comments Patient Comments agreeable to do PT Therapy Pain Assessment Pain When Pain Assessed At Rest Pain Present Pain Present Pain Reported Location Back Intensity 2 Scale Used Numeric (0 - 10) M4 PT-IP Mobility and Gait Start: 07/15/21 12:25 Freq: NEEDED Status: Active Protocol: Document 07/15/21 13:05 AB (Rec: 07/15/21 15:24 AB [email or web address]) PT-Bed Mobility Assessment Rolling Type of Rolling Log Rolling Level of Assist Standby Assistance Supine to Sit Supine to Sit Standby Assistance PT-Transfer Assessment Sit to and From Stand Sit to and from Stand Minimal Assistance,1 Person Assistance,Use of Upper Extremities Equipment Transfer Assistive Device Gait Belt,Front Wheeled Walker Orthotic/Prosthetic Devices or Brace: No Transfers Transfer Destination Bed Transfer Technique ambulated Transfer Ability Level of Assist Contact Guard Assistance, Minimal Assistance,1 Person Assistance Comments Mobility Comments pt is impulsive and was going to just get up out of the bed straight up and needed reminder to do his log roll. completed log roll SBA with cues. completed sit to stand min A and cues and ambulated in room ~ 30 ft using FWW. pt sat on chair and rested. agreed to do stairs. reminded pt regarding safety and slowing down. pt also tends to have a very narrow HARESH and cues to keep feet apart. completed sit to stand from garrison CGA to min A and cues and ambulated in the hallway initially CGA but then min A midway ambulation with cues for steadiness, posture and increase HARESH. pt sat on w/c. educated on stair climbing. pt completed up/down steps holding on to L rail with B hands min A and cues. pt assisted back to his room. ambulated from w/c to bed using FWW CGA to min A and cues. completed sit to supine SBA. positioned pt in bed. call light and table placed within reach. pt agreed to do caregiver training. requested 1030 am for caregiver training tomorrow and pt stated that he will tell his spouse. Gait Assessment Gait Gait Assistance Required: Contact Guard Assist,Minimum Assistance Distance (Feet) 100 Able to Maintain Weight Bearing Status Yes During Gait Assistive Devices Assistive Device Gait Belt,Front Wheeled Walker Orthotic/Prosthetic Devices or Brace: No Gait Deviations General Gait Pattern Antalgic,Decreased Stride Length,Decreased Feet Clearance,Narrow Based Gait, Step-to Gait Factors Limiting Gait Function Factors Limiting Gait Function Decreased Activity Tolerance, Decreased Strength,Difficulty Following Directions,Limited Range of Motion,Pain,Poor Balance,Poor Safety Awareness M5 PT-IP Objective Assessments Start: 07/15/21 12:25 Freq: NEEDED Status: Active Protocol: Document 07/15/21 09:35 AB (Rec: 07/15/21 12:37 AB [email or web address]) Orientation Orientation/Cognition Level of Alertness Alert Orientation Name,Place,Situation Language Function Ability No Deficits Noted Safety Awareness Decreased Safety Awareness Memory Description Short Term Impaired Gross Range of Motion Lower Extremity ROM Assessment Within Functional Limits Strength Lower Extremity Strength Assessment Right Impaired Hip 4-/5 Knee 3+/5 Coordination Assessment Gross Coordination Gross Coordination WNL Sensation Assessment Sensation Gross Sensation WNL Muscle Tone Muscle Tone WNL Yes M6 PT-IP Treatment Start: 07/15/21 12:25 Freq: NEEDED Status: Active Protocol: Document 07/15/21 13:05 AB (Rec: 07/15/21 15:24 AB [email or web address]) Physical Therapy Treatment Education Education Provided Safety M7 PT-IP Assessment and Plan Start: 07/15/21 12:25 Freq: NEEDED Status: Active Protocol: Document 07/15/21 13:05 AB (Rec: 07/15/21 15:24 AB [id number]) PT Summary Assessment and Plan Potential Rehabilitation Potential Fair Summary Impairments Pain,ROM,Strength,Balance, Coordination,Sensation,Tone, Cognition,Bed Mobility, Transfers,Gait,Activity Tolerance Assessment Summary pt requiring CGA to min A with mobility and is impulsive. caregiver training set up for tomorrow at 1030 am. will continue to assess progress and if spouse is able to safely assist pt, pt may go home with assist and will need HHPT. Goals Bed Mobility Goal Standby Assistance Transfer Goal Standby Assistance,Front Wheeled Walker Gait Goal Standby Assistance,Front Wheel Walker Gait Distance 200 Other Goals up/down 7+7 steps using L rail ascending SBA Days to Meet Goals 5 Frequency of Treatment Frequency Of Treatment Twice a Day Treatment Plan Physical Therapy Treatment Plan Bed Mobility Training,Transfer Training,Gait Training, Therapeutic Exercise,Balance Retraining,Post Op Education, Discharge Planning,Hot or Cold Pack,Neuromuscular Re-ed, Coordination Retraining,Manual Therapy Precautions Lumbar Precautions Log Roll,No Twisting,Limit Bending,Lifting Restriction of 10 lbs,Gait Belt above Incisional Area Recommendations To Nursing Amount of Assist Needed 1 Person Assist Discharge Recommendations PT Discharge Recommendations Home with 30/11 Assist Available,Home Health Transportation Needs at Discharge Private Vehicle,Wheelchair/ Cabulance
[2021-07-15] MEDS: SENNOSIDES 8.6 MG TABLET 17.2 MG PO (20:10)
[2021-07-15] MEDS: SODIUM CHLORIDE 0.9% FLUSH 10 ML IV (20:11)
[2021-07-16] VITALS (11 sets, daily range): BP systolic 120–149; BP diastolic 53–63; PULSE 77–92; RESP 14–19; TEMP 36.7–37.6; O2SAT 93–99
--- NOTE | 2021-07-16 00:21 | PC.NURSE ---
Patient is alert and oriented. Breath sounds with expiratory rhonchi in bilateral UL; RA sat 96%. HRR but has elevated BP of 145/61. Denied nausea. BT hypoactive but is passing flatus. Had catheter removed yesterday and is voiding per urinal; denies dysuria, frequency or urgency. Is able to turn himself in bed. Dressing to back is CDI. Reportedly gets out of bed with walker and 1 assist; gait not assessed at this time. States he has numbness in bilateral LE which was present prior to surgery and is unchanged post-op. Refuses to use SCD's so reminded to ankle wave when awake. Denied pain. Fall risk score is high and bed alarm is activated.
[2021-07-16] MEDS: OXYCODONE IR 5 MG TABLET 10 MG PO ×4 (04:42→17:33)
--- NOTE | 2021-07-16 07:15 | P.DS_ITS ---
History of Present Illness History of Present Illness Date Patient Seen: 07/17/21 Time Patient Seen: 07:15 Chief complaint: OPB Narrative: Operative Date/Time/Diagnoses Date of procedure: 07/14/21 Time of procedure: 12:30 Pre-op diagnosis: 1. L3-4, L4-5 spinal stenosis with neurogenic claudication 2. L3-4, L4-5 spondylolisthesis Post-op diagnosis: same Procedure & Clinicians Procedure: 1. L3-4, L4-5 Postero-lateral and posterior interbody fusion 2. L3-4, L4-5 interbody cage placement. 3. L3-4, L4-5 decompressive laminectomy with bilateral facetecomies 4. L3-4, L4-5 Posterior segmental instrumentation 5. [place] of bone marrow from iliac crest 6. Utilization of microsurgical technique and operating microscope Same procedure as scheduled: Yes Indications: Patient has been having chronic back pain and worsening lumbar radiculopathy. Patient failed multiple conservative management with worsening pain weakness and numbness in her lower extremity.? Patient has been having difficulty performing activity of daily living.? After discussing risks benefits of treatment options, patient elected proceed with surgery. Surgeon: Stephen Baker Canine Deputy: Eleanor Guadarrama Click Yes if Unassisted: No Anesthesia Type: General Operative Notes Closure Type: primary Specimen(s): none sent Prosthetic devices, grafts, tissues, transplants, or devices: Globus CREO MIS screws, Rise cages Applied: catheter Estimated Blood Loss (mL): 150 Blood products transfused: none Discharge Providers Provider Date of admission: 07/14/2021 Discharge Date: 07/17/21 Primary care physician: Harjit Sheriff MD Consults: 07/14/21 19:40 Consult to Occupational Therapy Evaluate & Treat Comment: Physician Instructions: Evaluate and treat Consult to Physical Therapy Evaluate & Treat Comment: Physician Instructions: Evaluate and Treat Discharge provider: Eleanor Guadarrama PA-C Summary Hospital Course Discharge Diagnosis: s/p lumbar fusion Hospital Course: Mr Kruger's hospital course was complicated by pain control as well as difficulty ambulating independently. He was evaluated by PT and treated throughout his stay, and they felt the most appropriate disposition was SNF for continued r ehab. On POD# 3 his pain was well-controlled. He was eating and voiding without difficulty. He was afebril and VSS. Exam Vital Signs (past 8 hours): - 07/16/21 00:10 07/16/21 04:30 Temperature 98.2 F 98.6 F Pulse Rate 77 86 Respiratory Rate 19 19 Blood Pressure 120/53 L 140/57 L Pulse Oximetry 95 98 Oxygen Delivery Method Room Air Oxygen Flow Rate 0 Narrative Exam Narrative: 5/5 strength in hip flexors, quadriceps, hamstrings, DF, PF, EHL bilaterally. Sensation to light touch intact throughout BLE. Calves soft, compressible, nontender and without palpable cords or masses. Const General: cooperative, healthy appearing and comfortable Orientation: alert, awake and oriented x3 Objective Labs Result Diagrams: 07/15/21 04:46 [facility] Medical History Asthma Graves' disease History of prosthetic unicompartmental arthroplasty of left knee (~1999) HTN (hypertension) Hyperthyroidism Precancerous lesion Sciatica Spinal stenosis Surgical History History of colon resection (~1969) History of total left hip replacement (~1999) Hx of sinus surgery (~2018) Social History household members: spouse Smoking Status: Never smoker alcohol intake: current Discharge Assessment & Plan Assessment and Plan Assessment: POD# 3 s/p L3-4, L4-5 transforaminal lumbar interbody fusion. Requires more rehab for safe mobility prior to going home. Plan of Treatment: Discharge to SNF. Discharge Plan Discharge Plan Patient Disposition: SNF Transfer to: [facility] Transportation: Facility vehicle I certify the postop hospital prison care is medically necessary on a continuing basis for any conditions for which he/ she received care during this hospitalization.: Yes The receiving facility has agreed to accept transfer and provide medical treatment.: Yes Discharge orders & Medications Prescriptions: New acetaminophen 325 mg Tablet 650 mg PO Q6HR PRN (Reason: Pain, Mild (1-3)) Qty: 240 2RF docusate sodium 100 mg Capsule 100 mg PO BID PRN (Reason: constipation) Qty: 60 2RF hydroxyzine pamoate 25 mg Capsule 25 mg PO Q4HR PRN (Reason: muscle spasm) Qty: 180 2RF oxycodone 5 mg Tablet 10 mg PO Q4-6H PRN (Reason: Pain, Severe (7-10)) Qty: 60 0RF oxycodone 5 mg tablet 5 mg PO Q4H PRN (Reason: pain) Qty: 60 0RF Continued metoprolol succinate 100 mg Tablet Extended Release 24 Hr 100 mg PO DAILY 0RF amlodipine 5 mg Tablet 5 mg PO DAILY 0RF fluticasone propion-salmeterol [Advair Diskus] 500-50 mcg/dose Blister With Device 1 inh INHALATION QAM 0RF lisinopril 40 mg Tablet 40 mg PO DAILY 0RF Discontinued acetaminophen 500 mg Tablet 1,000 mg PO QAM PRN (Reason: Pain) 0RF Follow up/Referrals: Harjit Sheriff MD [Primary Care Provider] - Stephen Baker MD [Physician] - As previously scheduled (Follow up with Dr Baker on 07/29/2021 @ 2:20 pm at [facility] in [place].) Diet/Activity/Treatments Diet: Diet as Tolerated Activity: Walk frequently! No deep bending (more than 90 degrees) or twisting at the waist. No lifting more than 20 pounds Skin/Wound/Dressing Care Report to your healthcare provider any signs of infection, such as:: chills, fever, night sweats, increased pain, unusual drainage and unusual redness Dressing: May shower. Keep incisions as dry as possible; change dressing if it becomes wet inside. No bathing or otherwise soaking incisions. Special Rehabilitation Services Reason for rehabilitation: Post-operative therapy Rehab type: Physical therapy and Occupational therapy Visit Report/Discharge Packet Instructions: DI for Prescription Opioid Use, DI for Transforaminal Lumbar Inte rbody Fusion Stand Alone Forms: Surgery Discharge Discharge Data Primary Care Provider: Harjit Sheriff Attending Provider: Stephen Baker Quality VTE Deep Vein Thrombosis/Pulmonary Embolism Present on Admission: No
[2021-07-16] MEDS: METOPROLOL ER 50 MG TABLET 100 MG PO (08:38)
[2021-07-16] MEDS: DOCUSATE 100 MG CAPSULE PO ×2 (08:39→20:48)
[2021-07-16] MEDS: MAGNESIUM HYDROXIDE 30 ML UDC PO (08:39)
[2021-07-16] MEDS: lisinopriL 20 MG TABLET 40 MG PO (08:39)
[2021-07-16] MEDS: AMLODIPINE 5 MG TABLET PO (08:39)
[2021-07-16] MEDS: SODIUM CHLORIDE 0.9% FLUSH 10 ML IV ×2 (09:13→20:49)
[2021-07-16] MEDS: BUDESONIDE 0.5 MG/2 ML NEB INH ×2 (09:23→19:10)
[2021-07-16] MEDS: ALBUTEROL 2.5 MG/3 ML NEB (ADULT) INH ×3 (09:23→19:10)
--- NOTE | 2021-07-16 10:25 | PT.IPTN ---
Current Diagnoses Acute posthemorrhagic anemia (07/15/21) Other spondylosis with radiculopathy, lumbar region (07/15/21) Spinal stenosis, lumbar region with neurogenic claudication (07/15/21) Arthrodesis status (07/15/21) Surgery Performed Operation Date: 07/14/21 12:15 Actual Procedures p L3-4, L4-5 TLIF with posterior instrumentation-robot - Stephen Baker MD Physical Therapy Treatment Note M2 PT-IP Current Condition Start: 07/15/21 12:25 Freq: NEEDED Status: Active Protocol: Document 07/15/21 09:35 AB (Rec: 07/15/21 12:37 AB [email or web address]) Physical Therapy Current Condition Current Condition Evaluation Date 07/15/21 Treatment Diagnosis s/p L3-4, L4-5 TLIF; difficulty in walking Onset Date 07/14/21 M3 PT-IP Subjective Start: 07/15/21 12:25 Freq: NEEDED Status: Active Protocol: Document 07/16/21 10:25 AB (Rec: 07/16/21 12:27 AB [email or web address]) Subjective Physical Therapy Visit Type Type Treatment Note Visit Start Time 10:25 Visit Stop Time 10:55 Total Visit Minutes 30 Number of BEAUTY SALES CONSULTANT Visits 0 Physical Therapy Visit Comments Patient Comments stated that he is not feeling too well today and is having more pain compared to yesterday Therapy Pain Assessment Pain When Pain Assessed At Rest Pain Present Pain Present Pain Reported Location Back Intensity 6 Pain Behaviors Facial Grimacing,Guarding, Restlessness,Wincing Pain Management Techniques Distraction,Modification of Treatment,Timing of Activity with Medications M4 PT-IP Mobility and Gait Start: 07/15/21 12:25 Freq: NEEDED Status: Active Protocol: Document 07/16/21 10:25 AB (Rec: 07/16/21 12:27 AB [id number]) PT-Bed Mobility Assessment Rolling Type of Rolling Log Rolling Supine to Sit Supine to Sit Minimal Assistance Sit to Supine Sit to Supine Moderate Assistance PT-Transfer Assessment Sit to and From Stand Sit to and from Stand Moderate Assistance,Maximum Assistance,1 Person Assistance ,Use of Upper Extremities Equipment Transfer Assistive Device Gait Belt,Front Wheeled Walker Orthotic/Prosthetic Devices or Brace: No Transfers Transfer Destination Bed Transfer Technique ambulated Transfer Ability Level of Assist Moderate Assistance,Maximum Assistance,1 Person Assistance ,Use of Upper Extremities Comments Mobility Comments spouse in room for caregiver training. pt sitting on chair . stated that he is not feeling too well today and has more pain but agreed to do PT . educated caregiver regarding pt's back precautions, use of gait belt and how to assist pt. spouse requires cues on how to don safety belt and how to assist pt. assisted pt with sit to stand x 2 attempts mod to max A and PT assist pt as well. pt ambulated to the the ~ 15 ft using FWW mod to max A and max cues. pt with shuffling gait and increas R knee flexion with slight buckling. sat on EOB. completed log roll bed mobility sit to supine mod A and max cues and min A for supine to sit with max cues. pt c/o increase pain. cues provided by PT to spouse on how to assist pt. pt ambulated from bed to w/c max A and max cues using FWW ~ 8 ft. pt required max A to sit on w/c as pt was trying to sit midway with turning. PT assisted and spouse unable to assist pt safely. educated pt on safety. pt requested to go back to bed. completed step transfer from wc to bed using FWW max A and max cues. completed sit to supine mod A and cues. positioned pt in bed. call light and table placed within reach. informed pt that he is not ready to go home and he will need SNF rehab and pt agreed. Gait Assessment Gait Gait Assistance Required: Moderate Assistance,Maximum Assistance Distance (Feet) 15 Able to Maintain Weight Bearing Status Yes During Gait Assistive Devices Assistive Device Gait Belt,Front Wheeled Walker Orthotic/Prosthetic Devices or Brace: No Gait Deviations General Gait Pattern Antalgic,Decreased Stride Length,Decreased Feet Clearance,Flexed Trunk,Step-to Gait Factors Limiting Gait Function Factors Limiting Gait Function Decreased Activity Tolerance, Decreased Strength,Limited Range of Motion,Pain,Poor Balance,Poor Safety Awareness M5 PT-IP Objective Assessments Start: 07/15/21 12:25 Freq: NEEDED Status: Active Protocol: Document 07/15/21 09:35 AB (Rec: 07/15/21 12:37 AB [id number]) Orientation Orientation/Cognition Level of Alertness Alert Orientation Name,Place,Situation Language Function Ability No Deficits Noted Safety Awareness Decreased Safety Awareness Memory Description Short Term Impaired Gross Range of Motion Lower Extremity ROM Assessment Within Functional Limits Strength Lower Extremity Strength Assessment Right Impaired Hip 4-/5 Knee 3+/5 Coordination Assessment Gross Coordination Gross Coordination WNL Sensation Assessment Sensation Gross Sensation WNL Muscle Tone Muscle Tone WNL Yes M6 PT-IP Treatment Start: 07/15/21 12:25 Freq: NEEDED Status: Active Protocol: Document 07/16/21 10:25 AB (Rec: 07/16/21 12:27 AB [id number]) Physical Therapy Treatment Education Education Provided Precautions,Safety M7 PT-IP Assessment and Plan Start: 07/15/21 12:25 Freq: NEEDED Status: Active Protocol: Document 07/16/21 10:25 AB (Rec: 07/16/21 12:27 AB [email or web address]) PT Summary Assessment and Plan Potential Rehabilitation Potential Fair Summary Impairments Pain,ROM,Strength,Balance, Coordination,Sensation,Tone, Cognition,Bed Mobility, Transfers,Gait,Activity Tolerance Progress Towards Goals Slow Progress due to Pain,Slow Progress due to Activity Tolerance Assessment Summary pt requiring increase assistance today with mobility using FWW mod to max A and max cues and unable to tolerate much activity with c/ o increase pain today compared to yesterday. completed caregiver training but spouse is unable to assist pt safely. pt will require SNF rehab to improve strength and functional mobiltiy independence. will continue to assess progress. Goals Bed Mobility Goal Standby Assistance Transfer Goal Standby Assistance,Front Wheeled Walker Gait Goal Standby Assistance,Front Wheel Walker Gait Distance 200 Other Goals up/down 7+7 steps using L rail ascending SBA Days to Meet Goals 5 Frequency of Treatment Frequency Of Treatment Twice a Day Treatment Plan Physical Therapy Treatment Plan Bed Mobility Training,Transfer Training,Gait Training, Therapeutic Exercise,Balance Retraining,Post Op Education, Discharge Planning,Hot or Cold Pack,Neuromuscular Re-ed, Coordination Retraining,Manual Therapy Precautions Lumbar Precautions Log Roll,No Twisting,Limit Bending,Lifting Restriction of 10 lbs,Gait Belt above Incisional Area Recommendations To Nursing Amount of Assist Needed 1 Person Assist Discharge Recommendations PT Discharge Recommendations SNF Rehab Transportation Needs at Discharge Wheelchair/Cabulance
--- NOTE | 2021-07-16 11:15 | OT.IPNOTE ---
Pt states caregiver training with PT did not go well just prior to OT coming in. Pt not wanting to get up at this time and would rather just see PT later this afternoon.
--- NOTE | 2021-07-16 13:18 | PM.PNPO.1 ---
Subjective Subjective Date Patient Seen: 07/16/21 Time Patient Seen: 07:00 Interval history: Pt sitting up in bed, good pain control. Worked w/ PT yesterday, received message from CM that plan with PT and OT was to discharge home. Pt states he would like to go home, has for assistance. Eating and voiding without difficulty. Exam Vital Signs (past 8 hours): - 07/16/21 09:14 07/16/21 09:15 07/16/21 09:24 Temperature Pulse Rate 89 87 Respiratory Rate 18 Blood Pressure Pulse Oximetry 94 95 07/16/21 10:11 07/16/21 11:46 Temperature 98.3 F 98.9 F Pulse Rate 79 89 Respiratory Rate 16 16 Blood Pressure 149/57 H 132/60 Pulse Oximetry 96 95 Oxygen Delivery Method Room Air Oxygen Flow Rate 0 Narrative Exam Narrative: 5/5 strength in hip flexors, quadriceps, hamstrings, DF, PF, EHL bilaterally. Sensation to light touch intact throughout BLE. Calves soft, compressible, nontender, and without palpable cords or masses. Const General: cooperative and healthy appearing Orientation: alert, awake and oriented x3 Objective Labs Result Diagrams: 07/15/21 04:46 [facility] Medical History Asthma Graves' disease History of prosthetic unicompartmental arthroplasty of left knee (~1999) HTN (hypertension) Hyperthyroidism Precancerous lesion Sciatica Spinal stenosis Surgical History History of colon resection (~1970) History of total left hip replacement (~2000) Hx of sinus surgery (~2019) Social History household members: spouse Smoking Status: Never smoker alcohol intake: current Assessment & Plan Post-op Assessment and plan (1) S/P lumbar fusion: (2) Acute postoperative anemia due to expected blood loss: Postoperative Procedures: Procedures Operation Date: 07/14/21 12:15 Actual Procedure Side Surgeon p L3-4, L4-5 TLIF with posterior instrumentation-robot Stephen Baker MD Postoperative day: 2 Postoperative status narrative: Recovery as expected. Continue pain control, mobilization w/ PT. Postoperative plan narrative: When I saw pt initially this morning, he was doing well and wanted to go home. Received report from RN @ [id number] that pt did not do well with PT this morning and plan is now to d/c to SNF. Disposition per PT. Quality VTE Deep Vein Thrombosis/Pulmonary Embolism Present on Admission: No
--- NOTE | 2021-07-16 16:11 | PT-IP ANOTE ---
checked on pt for PT and pt stated that he is still asleep and wants PT to come back. checked on pt again and pt stated again that he has just woken up and refused PT. pt does not want PT to check back on him today.
--- NOTE | 2021-07-16 20:04 | PC.NURSE ---
Patient is alert and oriented. Breath sounds CTA with RA sat of 99%. HRR. Denies nausea. BT hypoactive and states he is passing not much flatus. Has not had BM since 07/12 and is receiving Colace & Senna and was given MOM earlier this morning. Discussion re: suppository in a.m. if no results by then. Denies dysuria, frequency or urgency with urination; is voiding per urinal. Dressing to back changed at shift change and is CDI. Is able to turn himself in bed. Report by day RN is that patient requiring walker and 2 assist when out of bed; patient reports his knees feel like rubber. Continues to have numbness in bilateral LE but states it is improving. Pain in back is 3/10 and is tolerable per patient. Refusing foot SCD's so reminded to ankle wave. Fall risk score is high and bed alarm is activated.
[2021-07-16] MEDS: SENNOSIDES 8.6 MG TABLET 17.2 MG PO (20:49)
[2021-07-16] MEDS: hydrOXYzine pamoate 25 MG CAPSULE PO (20:50)
[2021-07-16] MEDS: ACETAMINOPHEN 325 MG TABLET 650 MG PO (20:50)
[2021-07-17] VITALS (7 sets, daily range): BP systolic 114–129; BP diastolic 49–70; PULSE 73–91; RESP 16–18; TEMP 36.4–37.3; O2SAT 97–100
[2021-07-17] MEDS: ACETAMINOPHEN 325 MG TABLET 650 MG PO (04:39)
[2021-07-17] MEDS: lisinopriL 20 MG TABLET 40 MG PO (08:31)
[2021-07-17] MEDS: DOCUSATE 100 MG CAPSULE PO (08:31)
[2021-07-17] MEDS: MAGNESIUM HYDROXIDE 30 ML UDC PO (08:31)
[2021-07-17] MEDS: METOPROLOL ER 50 MG TABLET 100 MG PO (08:32)
[2021-07-17] MEDS: SODIUM CHLORIDE 0.9% FLUSH 10 ML IV (08:33)
[2021-07-17] MEDS: ALBUTEROL 2.5 MG/3 ML NEB (ADULT) INH (08:41)
[2021-07-17] MEDS: BUDESONIDE 0.5 MG/2 ML NEB INH (08:43)
--- NOTE | 2021-07-17 09:45 | OT.IP.TRT ---
Current Diagnoses Acute posthemorrhagic anemia (07/15/21) Other spondylosis with radiculopathy, lumbar region (07/15/21) Spinal stenosis, lumbar region with neurogenic claudication (07/15/21) Arthrodesis status (07/15/21) Surgery Performed Operation Date: 07/14/21 12:15 Actual Procedures p L3-4, L4-5 TLIF with posterior instrumentation-robot - Stephen Baker MD Occupational Therapy Treatment Note M2 OT-IP Current Condition Start: 07/15/21 11:08 Freq: Status: Active Protocol: Document 07/15/21 11:09 [facility] (Rec: 07/15/21 11:27 [facility] [id number]) Occupational Therapy Current Condition Current Condition Evaluation Date 07/15/21 Treatment Diagnosis S/p L3-4, L4-5 TLIF Post Operative Precautions Lumbar Precautions Log Roll,No Twisting,Limit Bending,Lifting Restriction of 10 lbs,Gait Belt above Incisional Area M3 OT- IP Subjective and Pain Start: 07/15/21 11:08 Freq: Status: Active Protocol: Document 07/17/21 09:59 [facility] (Rec: 07/17/21 10:06 [facility] [id number]) OT- Subjective Occupational Therapy Visit Type Type Treatment Note Visit Start Time 09:35 Visit Stop Time 09:45 Total Visit Minutes 10 Occupational Therapy Visit Comments Patient Comments Pt wanting to brush his teeth and agreed to work with OT. Patient/Caregiver Goals TO go home, but realizes would be best to go to skilled rehab. OT Pain Assessment Pain When Pain Assessed At Rest Pain Present Pain Present Pain Reported Location Back Intensity 1 Scale Used Numeric (0 - 10) M4 OT- IP ADL's Start: 07/15/21 11:08 Freq: Status: Active Protocol: Document 07/17/21 09:59 [facility] (Rec: 07/17/21 10:06 [facility] [id number]) OT ADL-Grooming General Evaluation Grooming Ability Standby Assistance Areas Needing Assistance Retrieving/Set-up of Grooming Items OT ADL-Oral Care General Eval Oral Care Ability Standby Assistance Areas of Assistance Retrieving/Set-Up of Items OT ADL-Dressing General Eval Lower Body Dressing Ability Standby Assistance Comments OT Dressing Comments Pt still able to comfortably cross his legs over in order to do socks management needs. OT ADL-Toileting Comments OT Toileting Comments Pt states no having to use the bathroom. OT ADL-Bathing Comments OT Bathing Comments Pt not wanting to shower or sponge off at this time. M5 OT- IP IADL's Start: 07/15/21 11:08 Freq: Status: Active Protocol: Document 07/15/21 11:09 [facility] (Rec: 07/15/21 11:27 [facility] [id number]) OT-Instrumental Activities of Daily Living Home Safety Awareness Awareness of Need for Assistance at Home Good Awareness Ability to Problem Solve Emergency Able to Problem Solve Situations Home Safety Comments Pt has a supportive at home to assist with his needs. M6 OT- IP Functional Cognition Start: 07/15/21 11:08 Freq: Status: Active Protocol: Document 07/17/21 09:59 [facility] (Rec: 07/17/21 10:06 [facility] [id number]) Cognitive Factors Limiting Selfcare Function Cognitive Ability Level of Alertness Alert Patient Orientation Name,Place,Situation Attention Span Ability Capable of Focused Attention, Capable of Sustained Attention Ability to Follow Commands Able to Follow One Step Commands Safety Awareness Decreased Recall of Precautions Cognitive Comments Cognitive Assessment Comments Pt needing cues to recall his back precautions. M7 OT- IP Mobility and Balance Start: 07/15/21 11:08 Freq: Status: Active Protocol: Document 07/17/21 09:59 [facility] (Rec: 07/17/21 10:06 [facility] [id number]) OT-Transfer Assessment Sit to and From Stand Sit to and from Stand Moderate Assistance,Maximum Assistance Comments Mobility Comments Pt needing MOD/MAX AX1 to come to stand as pt's legs tend to buckle when coming to stand. Per pt has a bad right knee. Able to practice x3 needing from MODA to MAX AX1 to stand to the FWW. OT- Balance Assessment Sitting Balance and Reactions Static Sitting Balance Ability Good Dynamic Sitting Balance Ability Good M8 OT- IP Objective Assessments Start: 07/15/21 11:08 Freq: Status: Active Protocol: Document 07/15/21 11:09 [facility] (Rec: 07/15/21 11:27 [facility] [id number]) OT-Muscle Tone Assessment Muscle Tone WNL Yes M9 OT- IP Assessment and Plan Start: 07/15/21 11:08 Freq: Status: Active Protocol: Document 07/17/21 09:59 [facility] (Rec: 07/17/21 10:06 [facility] [id number]) OT Summary Assessment and Plan Potential Rehabilitation Potential Good Analytic Complexity at Evaluation Low Summary OT Impairments Balance,Functional Mobility, Dressing,Toileting,Bathing, Toilet Transfers,Shower Transfers Progress Towards Goals Slow Progress due to Medical Issues Assessment Summary Pt now having difficulty to come to stand and buckling with his right knee and therefore not safe to go home as pt has 7 steps to enter his home and would benefit from skilled rehab prior to going home. Goals Dressing Goal Independent Toileting Goal Independent Bathing Goal Independent Toilet Transfer Goal Independent Shower Transfer Goal Independent Days to Meet Goals 15 Frequency of Treatment Frequency Of Treatment Once a Day Treatment Plan OT Treatment Plan ADL Training,Functional Cognition Training,Functional Mobility,Patient/Family Education,Discharge Planning Other Treatment Recommendations and Next Pt to be able to do all LB Treatment Focus dressing with JOSE G Discharge Recommendations OT Discharge Recommendations SNF Rehab Transportation Needs at Discharge Wheelchair/Cabulance
--- NOTE | 2021-07-17 11:10 | PT.IPTN ---
Current Diagnoses Acute posthemorrhagic anemia (07/15/21) Other spondylosis with radiculopathy, lumbar region (07/15/21) Spinal stenosis, lumbar region with neurogenic claudication (07/15/21) Arthrodesis status (07/15/21) Surgery Performed Operation Date: 07/14/21 12:15 Actual Procedures p L3-4, L4-5 TLIF with posterior instrumentation-robot - Stephen Baker MD Physical Therapy Treatment Note M2 PT-IP Current Condition Start: 07/15/21 12:25 Freq: NEEDED Status: Discharge Protocol: Document 07/15/21 09:35 [facility] (Rec: 07/15/21 12:37 AB [id number]) Physical Therapy Current Condition Current Condition Evaluation Date 07/15/21 Treatment Diagnosis s/p L3-4, L4-5 TLIF; difficulty in walking Onset Date 07/14/21 M3 PT-IP Subjective Start: 07/15/21 12:25 Freq: NEEDED Status: Discharge Protocol: Document 07/17/21 10:54 [place] (Rec: 07/17/21 16:03 [place] [id number]) Subjective Physical Therapy Visit Type Type Treatment Note Visit Start Time 10:54 Visit Stop Time 11:10 Total Visit Minutes 16 Number of BRAND REPRESENTATIVE Visits 1 Physical Therapy Visit Comments Patient Comments Pt agreeable to ambulation. M4 PT-IP Mobility and Gait Start: 07/15/21 12:25 Freq: NEEDED Status: Discharge Protocol: Document 07/17/21 10:54 [place] (Rec: 07/17/21 16:03 [place] [id number]) PT-Bed Mobility Assessment Rolling Type of Rolling Log Rolling Level of Assist Contact Guard Assistance Supine to Sit Supine to Sit Minimal Assistance Sit to Supine Sit to Supine Moderate Assistance PT-Transfer Assessment Sit to and From Stand Sit to and from Stand Moderate Assistance,Maximum Assistance,1 Person Assistance ,Use of Upper Extremities Equipment Transfer Assistive Device Gait Belt,Front Wheeled Walker Orthotic/Prosthetic Devices or Brace: No Transfers Transfer Destination Bed Transfer Technique ambulated Transfer Ability Level of Assist Moderate Assistance,Maximum Assistance,1 Person Assistance ,Use of Upper Extremities Comments Mobility Comments Pt in bed upon arrival. CGA for logroll and Min A for sup< >sit, CGA for scooting to EOB. Unable to stand w/ Mod A on first attempt, but able to w/ Mod/Max on second attempt. Pt then ambulated ~40 ft around room and returned to bed requiring Min A to lift LE into bed. Pt then performed LE exercises including ankle pumps, quad sets, and glute sets and then reported fatigue . Pt left in bed w/ alarm on, SCDs on, and all needs in reach. Gait Assessment Gait Gait Assistance Required: Minimum Assistance,1 Person Assist Distance (Feet) 40 Able to Maintain Weight Bearing Status Yes During Gait Assistive Devices Assistive Device Gait Belt,Front Wheeled Walker Orthotic/Prosthetic Devices or Brace: No Gait Deviations General Gait Pattern Antalgic,Decreased Stride Length,Decreased Feet Clearance,Flexed Trunk,Step-to Gait Factors Limiting Gait Function Factors Limiting Gait Function Decreased Activity Tolerance, Decreased Strength,Limited Range of Motion,Pain,Poor Balance,Poor Safety Awareness Comments Gait Comments Decreased stride and foot clearance due to weakness M5 PT-IP Objective Assessments Start: 07/15/21 12:25 Freq: NEEDED Status: Discharge Protocol: Document 07/15/21 09:35 [facility] (Rec: 07/15/21 12:37 AB [id number]) Orientation Orientation/Cognition Level of Alertness Alert Orientation Name,Place,Situation Language Function Ability No Deficits Noted Safety Awareness Decreased Safety Awareness Memory Description Short Term Impaired Gross Range of Motion Lower Extremity ROM Assessment Within Functional Limits Strength Lower Extremity Strength Assessment Right Impaired Hip 4-/5 Knee 3+/5 Coordination Assessment Gross Coordination Gross Coordination WNL Sensation Assessment Sensation Gross Sensation WNL Muscle Tone Muscle Tone WNL Yes M6 PT-IP Treatment Start: 07/15/21 12:25 Freq: NEEDED Status: Discharge Protocol: Document 07/17/21 10:54 [place] (Rec: 07/17/21 16:03 [place] [id number]) Physical Therapy Treatment Education Education Provided Precautions,Safety M7 PT-IP Assessment and Plan Start: 07/15/21 12:25 Freq: NEEDED Status: Discharge Protocol: Document 07/17/21 10:54 [facility] (Rec: 07/17/21 16:03 [facility] [id number]) PT Summary Assessment and Plan Potential Rehabilitation Potential Fair Summary Impairments Pain,ROM,Strength,Balance, Coordination,Sensation,Tone, Cognition,Bed Mobility, Transfers,Gait,Activity Tolerance Progress Towards Goals Slow Progress due to Pain,Slow Progress due to Activity Tolerance Assessment Summary Pt able to tolerate 40 ft ambulation, but still requiring significant assist for sit<>stand and is limited by weakness and low tolerance for activity. He will require SNF to improve functional mobility independence. Goals Bed Mobility Goal Standby Assistance Transfer Goal Standby Assistance,Front Wheeled Walker Gait Goal Standby Assistance,Front Wheel Walker Gait Distance 200 Other Goals up/down 7+7 steps using L rail ascending SBA Days to Meet Goals 5 Frequency of Treatment Frequency Of Treatment Twice a Day Treatment Plan Physical Therapy Treatment Plan Bed Mobility Training,Transfer Training,Gait Training, Therapeutic Exercise,Balance Retraining,Post Op Education, Discharge Planning,Hot or Cold Pack,Neuromuscular Re-ed, Coordination Retraining,Manual Therapy Precautions Lumbar Precautions Log Roll,No Twisting,Limit Bending,Lifting Restriction of 10 lbs,Gait Belt above Incisional Area Recommendations To Nursing Amount of Assist Needed 1 Person Assist Discharge Recommendations PT Discharge Recommendations SNF Rehab Transportation Needs at Discharge Wheelchair/Cabulance
--- NOTE | 2021-07-17 13:23 | PC.NURSE ---
Day shift: Report given to Radha at [facility] and all questions answered. Pt also aware he is going to [facility] at 1500 today.
[2021-07-17 13:36] LABS: COVID19 -Nasal RAPID Negative (Negative)
--- NOTE | 2021-07-17 14:02 | CM.DPNOTE ---
Faxed last of snf referral per Nelida to [facility] and received fax conf. Lili Montoya CM Assist.
--- NOTE | 2021-07-17 14:53 | PC.NURSE ---
Day shift: Pt has all personal belongings. Dressing at op-site remains CDI. Taken to SNF at approx 1500 by transport person. SNF packet given to transport person. RN report has been given. Pt's VS remain WNL and pain well controlled today per JUL. Pt has been 1 person assist today and is moving well but does require rehab/SNF time.
== END 2021-07-17 15:22 ==
LOC: OR 07-16 07:06 → AC 07-16 07:06
PROVIDERS: Admitting Provider Orthopaedic Surgery Orthopaedic Surgery of the Spine; Family Provider Internal Medicine; PCP Family Medicine; Referring Provider Orthopaedic Surgery Orthopaedic Surgery of the Spine; Visit Provider Orthopaedic Surgery Orthopaedic Surgery of the Spine
PROC: (CPT 20939; principal; 2021-07-14 12:15)
DX: M48.062 Spinal stenosis, lumbar region with neurogenic claudication (principal); M47.26 Other spondylosis with radiculopathy, lumbar region; D62 Acute posthemorrhagic anemia; J45.909 Unspecified asthma, uncomplicated; I10 Essential (primary) hypertension; Z20.822 Contact with and (suspected) exposure to COVID-19
CPT/HCPCS: 20939; 22633; 22634; 22842; 22853 ×2; 63052; 63053; 36415; 72100; 76000; 82962; 85014; 85018; 87635; 94640; 94760; 97110; 97116; 97162; 97165; 97530; 97535; C9803; G0378; C1713; C1831; C9290; J0171; J0330; J0690; J1100; J1170; J2405; J2704; J3010; J7613

== ENCOUNTER → 2022-02-27 12:32 | Outpatient (CLI) | payer MEDICARE, SELFPAY ==
[2021-07-14 19:41] VITALS: BMI 26.4
--- NOTE | 2022-02-27 | DI.MRI.S_ITS ---
PROCEDURE: MR THORACIC SPINE WO CON INDICATIONS: S/P LUMBAR FUSION TECHNIQUE: Noncontrast sagittal T1 spine echo and T2 fast spin echo, sagittal STIR, and T2 fast spin echo through the thoracic spine. COMPARISON: [facility] Outside Film, CT, CT LUMBAR SPINE WITHOUT CONTRAST, 02/11/2022, 13:35. [facility], MR, MR LUMBAR SPINE WO CON, 01/03/2021, 13:31. FINDINGS: Image quality: Excellent. Alignment and Curvature: There is normal bony alignment. Bone Marrow: Marrow is of normal overall signal. No acute vertebral body compression fractures. Spinal Cord: At the T11-T12 level, there is increased T2 weighted cord signal seen within the central cord, as on series 6, image 9. Paraspinous Soft Tissues: No paravertebral masses. Miscellaneous: At the T11-T12 level, there is a central/right disc extrusion, with mild superior migration of the disc material. There is prominent hypertrophy of the posterior elements seen, right worse than left. There is severe central canal narrowing, with mass effect upon the distal spinal cord, with flattening, as seen on series 8, image 25. Moderate bilateral neural foraminal narrowing can be seen at this level. Elsewhere, milder degenerative changes are seen, scattered levels of mild to moderate neural foraminal narrowing. No significant central canal narrowing is seen elsewhere. IMPRESSION: Focal T11-T12 degenerative change, with a central/right disc extrusion. There is also prominent hypertrophy of the posterior elements. This results in severe central canal narrowing, with prominent flattening and narrowing of the distal spinal cord. 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 Dictated by: Ruperto Armijo M.D. on 02/27/2022 at 13:34 Approved by: Ruperto Armijo M.D. on 02/27/2022 at 13:40
== END ==
PROVIDERS: Family Provider Internal Medicine; PCP Family Medicine; Referring Provider Orthopaedic Surgery Orthopaedic Surgery of the Spine; Visit Provider Orthopaedic Surgery Orthopaedic Surgery of the Spine
DX: M47.814 Spondylosis without myelopathy or radiculopathy, thoracic region; M51.24 Other intervertebral disc displacement, thoracic region; M48.04 Spinal stenosis, thoracic region; Z98.1 Arthrodesis status
CPT/HCPCS: 72146

== ENCOUNTER → 2022-03-10 14:56 | Outpatient (CLI) | payer MEDICARE, SELFPAY ==
[2021-07-14 19:41] VITALS: BMI 26.4
[2022-03-10 15:21] LABS: Add Manual Diff / Slide Review NO; Basophils Absolute Auto 100 /uL (0-100); Basophils Percent Auto 0.6 % (0-2); Eosinophils Absolute Auto 300 /uL (0-450); Eosinophils Percent Auto 3.1 % (2-4); Hematocrit 41.2 % (41-53); Lymphocytes Absolute Auto 2600 /uL (1100-4500); Lymphocytes Percent Auto 26.4 % (25-40); Mean Corpuscular HGB Conc 33.9 % (30-36); Mean Corpuscular Hemoglobin 30.3 PG (26-34); Mean Corpuscular Volume 89.4 fL (80-100); Monocytes Absolute Auto 600 /uL (0-900); Monocytes Percent Auto 6.4 % (3-14); Neutrophils Absolute Auto 6200 /uL (1500-7000); Neutrophils Percent Auto 63.5 % (50-75); Platelet Count 291 X10^3/uL (150-400); Red Blood Cell Count 4.61 X10^6/uL (4.5-5.9); Red Cell Distribution Width 13.3 % (11.6-14.8); White Blood Cell Count 9.7 X10^3/uL (4.5-11.0)
[2022-03-10 16:04] LABS: Hemoglobin A1C% w Est Avg Glu 6.1 % (4.0-6.0)
[2022-03-10 16:05] LABS: BUN Creatinine Ratio 15.7 (6-22); Blood Urea Nitrogen 18 mg/dL (9-20); Calcium 9.1 mg/dL (8.4-10.2); Carbon Dioxide 24 mmol/L (22-32); Chloride 105 mmol/L (98-107); Estimated Glomerular Filt Rate > 60 mL/min (>60); Glucose 109 mg/dL (80-110); HEMOLYSIS < 15 (0-50); Potassium 4.4 mmol/L (3.4-5.1); Sodium 139 mmol/L (137-145)
== END ==
PROVIDERS: Family Provider Internal Medicine; PCP Family Medicine; Referring Provider Orthopaedic Surgery Orthopaedic Surgery of the Spine; Visit Provider Orthopaedic Surgery Orthopaedic Surgery of the Spine
DX: Z01.812 Encounter for preprocedural laboratory examination (principal); R73.9 Hyperglycemia, unspecified
CPT/HCPCS: 36415; 80048; 83036; 85025

== ENCOUNTER 2022-03-25 12:35 | Inpatient (IN) | payer MEDICARE, SELFPAY ==
[2021-07-14 19:41] VITALS: BMI 26.4
[2022-03-20 10:32] VITALS: BMI 25.7
[2022-03-25] VITALS (14 sets, daily range): BP systolic 100–149; BP diastolic 52–81; PULSE 87–104; RESP 12–17; TEMP 36–36.4; O2SAT 94–100; BMI 25.7
--- NOTE | 2022-03-25 | DI.RAD.S_ITS ---
PROCEDURE: XR THORACIC SPINE 2V INDICATIONS: T11-12 FUSION TECHNIQUE: 2 views of the thoracic spine were acquired. COMPARISON: None. FINDINGS: Limited fluoroscopic images of the thoracic spine were acquired intraoperatively demonstrating posterior fusion of T11 and T12 with bilateral paraspinal rods and pedicular screws. No gross hardware complication noted. IMPRESSION: Intraoperative fluoroscopic support for T11-T12 posterior spinal fusion. Please see procedural/operative note for further details. Dictated by: Félix Rankin M.D. on 03/25/2022 at 20:49 Approved by: Félix Rankin M.D. on 03/25/2022 at 20:50
[2022-03-25] MEDS: LACTATED RINGERS 1,000 ML 84 ML IV (13:26)
[2022-03-25 13:28] LABS: COVID19 -Nasal RAPID Negative (Negative)
--- NOTE | 2022-03-25 13:49 | PM.PREOP ---
Pre-operative Note COVID-19 COVID-19 status: Negative Result date/Date tested (Pos, Neg/Pending): 03/25/22 Criteria for continued procedure: Expected advancement of disease process, Possibility delay results in more complex future surgery or treatment, Increased loss of function, Continuing or worsening of significant or severe pain, Deterioration of the patient's condition or overall health and Delay expected to result in less-positive ultimate med/surg outcome Interval Note History & Physical reviewed/Exam performed by Physician: Yes Changes to H&P: No
[2022-03-25] MEDS: CEFAZOLIN 2 GM/100 ML PREMIX 100 ML IV ×2 (15:00→21:07)
[2022-03-25] MEDS: BUPIVACAINE LIPOSOME 266 MG/20 ML VIAL INJ (15:06)
[2022-03-25] MEDS: BUPIVACAINE 0.25% (PF) 30 ML, EPINEPHrine 0.3 MG INJ (15:10)
[2022-03-25] MEDS: ACETAMINOPHEN IV 1,000 MG/100 ML VIAL 400 MG IV (15:55)
[2022-03-25] MEDS: LACTATED RINGERS 1,000 ML 100 ML IV (16:31)
--- NOTE | 2022-03-25 17:11 | P.OP_ITS ---
Operative Date/Time/Diagnoses Date of procedure: 03/25/22 Time of procedure: 14:20 Pre-op diagnosis: 1. 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 T11-12 disc herniation Post-op diagnosis: same Procedure & Clinicians Procedure: 1. T11-12 bilateral laminectomy and facetecomies 2. T11-12 posterolateral fusion 3. T11-12 posterior non-segmental instrumentation 4. Utilization of microsurgical technique and operating microscope Same procedure as scheduled: Yes Indications: Patient has been having progressively worsening symptoms consistent with myelopathy. Thoracic MRI shows severe spinal stenosis at T11-12 with cord edema. Patient failed multiple conservative management with worsening pain weakness and worsening balance consistent with myelopathy correlating to his MRI findings. Patient has been having difficulty performing activity of daily living. After discussing risks benefits of treatment options, patient elected proceed with surgery. Surgeon: Stephen Baker Race Relations Professor: Chris Hope Click Yes if Unassisted: No Anesthesia Type: General Operative Notes Closure Type: primary Specimen(s): none sent Prosthetic devices, grafts, tissues, transplants, or devices: Globus revolve screws Estimated Blood Loss (mL): 20 Blood products transfused: none Procedure in detail: Patient was seen in the preoperative area. Risks and benefits of the surgery was discussed with the patient. Informed consent was obtained from the patient and placed in the chart. Surgical site was marked. Patient was taken to the operative room. General anesthesia was administered. Prophylactic antibiotic was given to the patient less than 30 min before the incision was made. Patient was placed into a prone position on the Santi table. Patient's back was then prepped and draped in the sterile fashion. Time-out was performed at this time. Prior to making skin incision, baseline neural monitoring was performed. Immediately after patient was placed into the prone position on the Santi table there was a significant decreased motor and sensory function to patient's lower extremity. Using AP and lateral C-arm imaging the interval between T11-12 was identified and marked on patient's back. A 2 inch incision 2 in from midline was made on the right side first. The fascia was incised in line with skin incision. Globus MARS retractors was placed inside the incision and docked onto the T11 lamina. Using microsurgical technique and operating microscope, a T11 bilateral laminectomy and T11-T12 facetectomy was performed using a Kerrison rongeur. Patient was found to have severe central spinal stenosis due to multiple extruded disc fragments as well as hypertrophied ligamentum flavum along with enlarged facet joint. These findings are all consistent with patient's MRI imaging that was performed on his thoracic spine. Full decompression was performed after the laminectomy facetectomy and resection of ligamentum flavum along with partial diskectomy was performed. There was partial recovery to patient's left lower extremity after the decompression was completed. And there was no change to patient's right lower extremity which was still significantly decreased compared to patient's baseline signal prior to patient's was positioned into the prone position. Using the double C-arm technique, pedicle screws were placed into the T11-12 pedicles bilaterally. This was done by placing the Jamshidi needle into the pedicles, then placing the guidewires over the Jamshidi needle, and finally placing the cannulated screws over the guidewires bilaterally. After the pedicle screws were placed, 2 titanium rods was locked into the heads of the pedicle screws using locking caps and torque limiting screwdriver. After all the hardware was placed, and confirmed with AP and lateral C-arm imaging, the wound was then irrigated with sterile normal saline and packed with Ray-Chung gauze for 3 min to accomplish hemostasis. After the gauze was removed the deep fascia was closed with #1 Vicryl suture. The subcutaneous layer was closed with 2-0 Vicryl. The skin was closed with skin silvia. Patient tolerated the procedure without issues. Patient will be admitted to the inpatient hospital for medical management and neuro vascular monitoring. Complications: none Post-operative Condition: stable Disposition: PACU Plan for aftercare: Admit to inpatient hospital
--- NOTE | 2022-03-25 17:50 | SUR.PHASEI ---
1745 Dr Baker at bedside and assessed pt and stated to relay to floor nurse that he is aware of pt's baseline and that pt has decreased sensation and movement of lower extremities. Dr Baker stated to relay to floor nurse to keep MAP above 80
[2022-03-25] MEDS: SODIUM CHLORIDE 0.9% 1,000 ML 100 ML IV ×2 (19:20→21:08)
[2022-03-25] MEDS: ALBUTEROL 2.5 MG/3 ML NEB (ADULT) INH (19:56)
[2022-03-25] MEDS: BUDESONIDE 0.5 MG/2 ML NEB INH (19:56)
[2022-03-25] MEDS: hydrOXYzine pamoate 25 MG CAPSULE PO (21:13)
[2022-03-25] MEDS: ACETAMINOPHEN 325 MG TABLET 650 MG PO (21:13)
[2022-03-26] VITALS (7 sets, daily range): BP systolic 111–168; BP diastolic 53–73; PULSE 76–105; RESP 17–18; TEMP 36.2–36.6; O2SAT 96–98
[2022-03-26] MEDS: OXYCODONE IR 5 MG TABLET PO ×2 (03:41→11:14)
[2022-03-26] MEDS: hydrOXYzine pamoate 25 MG CAPSULE PO (03:42)
[2022-03-26] MEDS: ACETAMINOPHEN 325 MG TABLET 650 MG PO ×2 (03:43→11:14)
[2022-03-26] MEDS: SODIUM CHLORIDE 0.9% 1,000 ML 100 ML IV ×2 (05:55→20:58)
[2022-03-26] MEDS: CEFAZOLIN 2 GM/100 ML PREMIX 100 ML IV (06:00)
--- NOTE | 2022-03-26 07:54 | PM.PN.1 ---
Exam Vital Signs (past 8 hours): - 03/26/22 00:00 03/26/22 02:00 03/26/22 04:00 Temperature 97.3 F L 97.1 F L Pulse Rate 78 76 84 Respiratory Rate 18 17 Blood Pressure 128/55 L 111/53 L 132/63 Pulse Oximetry 97 97 98 Oxygen Delivery Method Room Air Oxygen Flow Rate 0 Objective Labs Labs: Laboratory Results - last 24 hr 03/25/22 12:49 SARS-CoV-2 (PCR) Negative [facility] Medical History (Updated 07/15/21 @ 07:20 by Eleanor Guadarrama PA-C) Asthma Graves' disease History of prosthetic unicompartmental arthroplasty of left knee (~1999) HTN (hypertension) Hyperthyroidism Precancerous lesion Sciatica Spinal stenosis Surgical History (Updated 03/20/22 @ 10:40 by Jazmine Shaikh RN) History of colon resection (~1969) History of total left hip replacement (~1999) Hx of sinus surgery (~2018) S/P lumbar spinal fusion (07/14/21) Social History household members: none Smoking Status: Never smoker alcohol intake: current Assessment & Plan Assessment & Plan narrative: Mr. Kruger is POD#1 s/p T11-12 laminectomy and posterior fusion with instrumentation. Patient had significant drop in baseline EMG and motor evoked potential from neuromonitoring after patient was placed into prone position prior to starting surgery. Post surgery, patient had slight recovery in his left sided neuromonitoring signals. Patient had significant post surgery physical exam with decreased sensiblity to both legs and significant motor weakness to both legs in multiple muscle groups; he was examined in recovery room post anesthesia prior to transfer to his room last evening. This was expected and consistent with On exam today, patient is A&O x3, he has intact sensation to both legs and feet, he has intact motor exam to his LLE. He has 4+/5 right EHL, 3/5 right quadriceps. His BP was kept higher intentionally in order to improving perfusion to his neuro structures and facilitate recovery. Patient is in minimum pain this morning. He is receiving IV steroids to decrease spinal cord inflammation, which was present on his MRI as hyerintense signal indicating spinal cord edema. Plan to continue current medical management, take sedating medication only as necessary in order to keep his mean arterial pressure higher than 80 to improve tissue perfusion. Will participate in PT as tolerated today. Will continue monitor and assess his neuro status. Time Spent With Patient Critical Care time: I spent a total of [] minutes of critical care time on this patient's care today; this time is exclusive of procedural time.
[2022-03-26] MEDS: DOCUSATE 100 MG CAPSULE PO (08:01)
[2022-03-26] MEDS: DEXAMETHASONE 10 MG/ML VIAL IV (08:02)
--- NOTE | 2022-03-26 11:11 | CM.DANOTE ---
DCP Assessment: Payor confirmed: Jesscia PCP confirmed: Harjit Sheriff MD Pt is a 86 y.o. M who presented to the hospital for a planned back surgery. Pt had complications post-op. Pt brought up to the AC unit for further management and care of his surgery. DCP met with pt this morning to discuss discharge needs. Pt sitting up in bed. DCP introduced self and role. Pt lives alone in a split level home in [place]. Pt in December 2021. Pt son, Eamon, coming in from out of town to help pt recover. Pt states that he does drive but shouldn't. Pt states that he does use a walker and if he needs more assistance at home, he states, I can get it from [facility]. DCP talked about the potential of needing home health vs SNF. Pt agreeable and open to further discussion. Pt son to be at hospital today. Pt has no other concerns at this time. DCP awaiting further plans from healthcare team. Whiteboard updated. Instructed to call. Pt thankful for discussion. P: Unclear needs at this time. Awaiting further plan. DCP to continue to follow case. Maryuri Saldivar RN/JABIERP Discharge Planning/Care Management Advanced directive, confirm from FAMILY Start: 03/25/22 18:41 Freq: Q24H Status: Active Protocol: Document 03/25/22 18:42 AKP (Rec: 03/25/22 18:42 AK [id number]) Advance Directive, confirm on record Time 18:42 Person contacted need to ask family if one exsist, pt says no. Copy received No CM Discharge Assessment Start: 03/26/22 11:09 Freq: Status: Active Protocol: Document 03/26/22 11:09 INGE (Rec: 03/26/22 11:11 AJ [id number]) Discharge Planning Assessment Assigned Clerk General Maryuri Saldivar RN/JABIERP Advance Directives? No History Provided By Patient,Medical Record Prior Living Arrangements House Household Members none Type of transporation used prior to Drives own vehicle admit Comment Pt states, He should not drive but has too sometimes. Independent with ADL's Yes Is patient alert and oriented? Yes Caregiver for Another No DME Already Rented / Owned FWW / Walker Discharge Plan Home Transportation Arrangement SonEamon, to transport home. Referrals Initiated None needed,Custodial Additional Comment At this time. R/O HH vs SNF. Whiteboard Updated in Patient Room with Yes name and ext. # of Clerk General Comment Instructed to call Review Status In Process Please Provide Date Initial DC 03/26/22 Assessment Was Performed Next Review Type Continued Stay Review Pre-Anesthesia Assessment Start: 03/20/22 10:32 Freq: Status: Active Protocol: Document 03/20/22 10:32 CAB (Rec: 03/20/22 11:11 CAB [id number]) Pre-Anesthesia Assessment PAC Comment Pt is s/p TLIF 07/14/21 Preferred Name [facility] Patient Information Reviewed Via Phone Assessment Assessment Completed With Patient Diagnostic Results BMP/CMP,CBC,EKG Comment Labs @ [facility] 03/10/22, ECG @ [facility] , COVID screen-RAPID on admit Primary Care Provider Harjit Sheriff Seen Specialist in Last 12 Months Yes Specialist Seen Field Service Analyst,Orthopedist Primary Language Cape [place]dean Preferred Language [place] Portfolio Assistant Required No Height 182.88 cm Weight 86.183 kg Body Mass Index (BMI) 25.7 Hearing Ability Normal Visual Assist Glasses Dentition Type Teeth, Natural Present,Partial - Upper Barriers to Learning None Other Aids No Hx Anesthesia Reactions No Hx Family Anesthesia Reaction No Hx Malignant Hyperthermia No Hx Blood Transfusions No: Pt unsure Anesthesia Review Requested No alcohol intake current alcohol intake frequency a few times a week Smoking Status Never smoker Substance Use Type does not use Pain Present Pain Reported Musculoskeletal Symptoms Abnormal Gait,Back Pain, Difficulty Walking,Muscle Weakness,Radiating Pain into Limb History of Falling (Recent or History of No ) Patient is completely paralyzed or No completely immobile Prosthesis or Orthotic Device Front Wheel Walker Mental Status Oriented to own ability Comment Worsening balance after TLIF Is patient on oxygen? No Does patient have PARKER/SOB No Hx Sleep Apnea No CPAP/BIPAP use not prescribed Currently Taking a Beta Humberto Yes: Metoprolol Hx Chest Pain No Hx SOB No Hx Syncope or Dizziness Yes: Occasional dizziness with standing too quickly Anti-Coagulant Therapy No Has a Occupational Therapy Manager No Cardiac Testing No Hx Pacemaker/ICD No Pacemaker Rep Required? No Diet Type At Home Vegetarian Dysphagia No Gastrointestinal Symptoms None Bladder Pattern Urgency Urinary Catheter Present No Hx Urinary Self Catheterization No Diabetes No HgbA1C 6.1 Date 03/10/22 Comment Improved from 6.6% on 05/27/21 Hx Drug Resistant Organism No Presence of External or Internal Medical Yes: Left hip/knee, lumbar Devices Have you had any close contact with No someone diagnosed with COVID-19? Received a COVID vaccine? Yes Received all doses? Yes Marital Status /- in December 2021 Lives With none Current Living Arrangements House Number of Floors (Floors) Two Floors Support System Child/Children Does the Patient Have Assistance After Yes: Son will stay and assist Surgery with care at DC Patient Discharge Plan Description Return Home Comment Pt not advised on length of stay per surgeon Feels Safe in Current Environment Yes Been Physically Hurt or Threatened By a No Person in Current Environment Do you have thoughts of harming yourself None or others? Are you currently considering suicide? No Do you have a plan to hurt yourself or No Plan others? Do You Have Any Spiritual Beliefs That No May Affect Your HC Choices? Do You Have Any Cultural Practices That No May Affect Your HC Choices? Who Can We Speak to About Patient's Care Family, friends Identifying Code for Release of Patient Declines to issue Information Health Care Proxy/Next of Kin Eamon Kruger (son) Health Care Proxy Emergency Contact Name Eamon Kruger (son) Emergency Contact Advance Directives? No Power of Slot Router No PAC Instructions Durable medical equipment, Medications to take/avoid,No ETOH/petroleum product on skin DOS,NPO,Pre-surgical wash, Sturdy shoes/comfortable clothes,Do not bring valuables and remove jewelry
--- NOTE | 2022-03-26 12:04 | OT.IP.EVAL ---
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) Spinal stenosis, thoracic region (03/25/22) Surgery Performed Operation Date: 03/25/22 14:45 Actual Procedures p T11-12 laminectomy, fusion - Stephen Baker MD Past Medical History (Last Reviewed 07/14/21 @ 13:00 by Stephen Baker MD) Asthma Graves' disease History of prosthetic unicompartmental arthroplasty of left knee (~1999) HTN (hypertension) Hyperthyroidism Precancerous lesion Sciatica Spinal stenosis Surgical History (Last Updated 03/20/22 @ 10:40 by Jazmine Shaikh RN) History of colon resection (~1969) History of total left hip replacement (~1999) Hx of sinus surgery (~2018) S/P lumbar spinal fusion (07/14/21) Occupational Therapy Inpatient Evaluation/Re-Eval M1 PT/OT-IP Prior Functional Status Start: 03/26/22 17:16 Freq: NEEDED Status: Active Protocol: Document 03/26/22 11:35 [facility] (Rec: 03/26/22 17:52 [facility] [id number]) Medical Review Prior Functional Status Communication independent Mobility and Gait Pt states uses the 4ww for all his mobility needs. Activities of Daily Living and IADL's Pt states having difficulty to do his ADL and IADl needs. Prior Functional Level (Other details) Pt went to rehab after S/p L3- 4 , L4-5 TLIF 07/14/21 and then decided to go home in September per pt. Pt's recently passed in December. Social History Household Members none Living Arrangements House Number of Floors (Floors) Two Floors Number of Stairs To Enter/Railing? Pt has a split level house of 7 steps with left rail and right wall to get to the main level. Home Environment Standard Height Toilet,Tub/ Shower,Tub/Shower Doors Home Equipment Front Wheel Walker,Four Wheel Walker,Shower Seat without Backrest,Hand Held Shower,Long Handled Shoe Horn,Grab Bars Near Toilet,Grab Bars In Shower M2 OT-IP Current Condition Start: 03/26/22 17:20 Freq: Status: Active Protocol: Document 03/26/22 11:35 [facility] (Rec: 03/26/22 17:52 [facility] [id number]) Occupational Therapy Current Condition Current Condition Evaluation Date 03/26/22 Treatment Diagnosis S/p T11-12 TLIF Diagnosis Onset Date 03/25/22 Post Operative Precautions Lumbar Precautions Log Roll,No Twisting,Limit Bending,Lifting Restriction of 10 lbs,Gait Belt above Incisional Area M3 OT- IP Subjective and Pain Start: 03/26/22 17:20 Freq: Status: Active Protocol: Document 03/26/22 11:35 [facility] (Rec: 03/26/22 17:52 [facility] [id number]) OT- Subjective Occupational Therapy Visit Type Type Initial Evaluation Visit Start Time 11:35 Visit Stop Time 12:04 Total Visit Minutes 29 Occupational Therapy Visit Comments Patient Comments Pt agreed to get up and PT present due to pt having needing extensive needs for mobility and transfer. Patient/Caregiver Goals Pt adamant of going home. OT Pain Assessment Pain When Pain Assessed At Rest Pain Present Pain Present Pain Reported Location Back Intensity 1 Scale Used Numeric (0 - 10) M4 OT- IP ADL's Start: 03/26/22 17:20 Freq: Status: Active Protocol: Document 03/26/22 11:35 [facility] (Rec: 03/26/22 17:52 [facility] [id number]) OT [id number] Comments OT Self-Feeding Comments NOt at meal time. OT ADL-Grooming Comments OT Grooming Comments not performed OT ADL-Oral Care Comments Oral Care Comments not performed OT ADL-Dressing General Eval Lower Body Dressing Ability Maximum Assistance Comments OT Dressing Comments assist to trip his socks OT ADL-Toileting Comments OT Toileting Comments not performed OT ADL-Bathing Comments OT Bathing Comments Sponge bath more appropriate at this time. M5 OT- IP IADL's Start: 03/26/22 17:20 Freq: Status: Active Protocol: Document 03/26/22 11:35 [facility] (Rec: 03/26/22 17:52 [facility] [id number]) OT-Instrumental Activities of Daily Living Home Safety Awareness Home Safety Comments Pt states that his son will stay with him as long as it is needed if going home. Medication Management Medication Management Comments Pt states able to do prior. Money Management Money Management Comments Pt states able to do prior. Meal Preparation Meal Preparation Comments Pt will need assist Zookeeper Zookeeper Comments Pt will need assist M6 OT- IP Functional Cognition Start: 03/26/22 17:20 Freq: Status: Active Protocol: Document 03/26/22 11:35 [facility] (Rec: 03/26/22 17:52 [facility] [id number]) Cognitive Factors Limiting Selfcare Function Cognitive Ability Level of Alertness Alert Patient Orientation Name,Place,Situation Attention Span Ability Capable of Focused Attention, Capable of Sustained Attention Ability to Follow Commands Able to Follow Multi-Step Commands Cognitive Comments Cognitive Assessment Comments Pt intact of OT eval and able to follow commands well for mobility needs. OT- Vision and Hearing OT- Hearing Assessment OT- Hearing Assessment WFL OT- Vision Assessment Visual Acuity Glasses All The Time M7 OT- IP Mobility and Balance Start: 03/26/22 17:20 Freq: Status: Active Protocol: Document 03/26/22 11:35 [facility] (Rec: 03/26/22 17:52 [facility] [id number]) OT- Bed Mobility Assessment Supine to Sit Supine to Sit Assist Moderate Assistance,1 Person Assistance Sit to Supine Sit to Supine Assist Moderate Assistance,1 Person Assistance OT-Transfer Assessment Sit to and From Stand Sit to and from Stand Moderate Assistance,2 Person Assistance Comments Mobility Comments MODA to help get to the edge of the bed. MODA X2 to FWW , assist to protect RLE from buckling. Noted increased tone in RLE and tends to internally rotate and also ends up underneath his left foot. OT- Balance Assessment Sitting Balance and Reactions Static Sitting Balance Ability Good Standing Balance and Reactions Static Standing Balance Ability Poor M8 OT- IP Objective Assessments Start: 03/26/22 17:20 Freq: Status: Active Protocol: Document 03/26/22 11:35 [facility] (Rec: 03/26/22 17:52 [facility] [id number]) OT Gross Range of Motion Upper Extremity Range of Motion Assessment Within Functional Limits OT Strength Upper Extremity Strength Assessment Within Functional Limits OT-Muscle Tone Assessment Muscle Tone WNL No Comments Muscle Tone Comments Increased tone for RLE. M9 OT- IP Assessment and Plan Start: 03/26/22 17:20 Freq: Status: Active Protocol: Document 03/26/22 11:35 [facility] (Rec: 03/26/22 17:52 [facility] [id number]) OT Summary Assessment and Plan Potential Rehabilitation Potential Fair Analytic Complexity at Evaluation Moderate Summary OT Impairments Pain,Strength,Balance, Coordination,Sensation, Functional Mobility,Grooming, Dressing,Toileting,Bathing, Toilet Transfers,Shower Transfers,Activity Tolerance Progress Towards Goals Slow Progress due to Pain,Slow Progress due to Medical Issues,Slow Progress due to Activity Tolerance Assessment Summary Pt MOD complexity and main barriers are steps, increased tone in RLE, and now needing extensive assist just for mobility needs and ADL's. Pt will need extensive therapy at this time of skilled rehab or possibly acute rehab as pt is highly motivated to get better. Goals Self-Feeding Goal Independent Grooming Goal Independent Dressing Goal Independent Toileting Goal Independent Bathing Goal Independent Toilet Transfer Goal Independent Shower Transfer Goal Independent Days to Meet Goals 50 Frequency of Treatment Frequency Of Treatment Once a Day Treatment Plan OT Treatment Plan ADL Training,Functional Mobility,Patient/Family Education,Discharge Planning Discharge Recommendations OT Discharge Recommendations SNF Rehab,Acute Rehab,SNF vs Acute Rehab Transportation Needs at Discharge Stretcher/Ambulance
--- NOTE | 2022-03-26 12:05 | PT.IIE ---
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) Spinal stenosis, thoracic region (03/25/22) Surgery Performed Operation Date: 03/25/22 14:45 Actual Procedures p T11-12 laminectomy, fusion - Stephen Baker MD Surgical History (Last Updated 03/20/22 @ 10:40 by Jazmine Shaikh RN) History of colon resection (~1969) History of total left hip replacement (~1999) Hx of sinus surgery (~2018) S/P lumbar spinal fusion (07/14/21) Medical History (Last Reviewed 07/14/21 @ 13:00 by Stephen Baker MD) Asthma Graves' disease History of prosthetic unicompartmental arthroplasty of left knee (~1999) HTN (hypertension) Hyperthyroidism Precancerous lesion Sciatica Spinal stenosis Physical Therapy Inpatient Evaluation/Re-Eval M1 PT/OT-IP Prior Functional Status Start: 03/26/22 17:16 Freq: NEEDED Status: Active Protocol: Document 03/26/22 12:05 [facility] (Rec: 03/26/22 17:56 [facility] [id number]) Medical Review Prior Functional Status Medical History Reviewed Yes Diet/Fluid Consistency Regular Communication WFL, glasses Mobility and Gait he ambulates in the house with his 4WW, he reports he sits on the 4WW to move around in the kitchen Activities of Daily Living and IADL's Independent, drives Prior Functional Level (Other details) his Dec 2021, his Son has agreed to stay with him after surgery Social History Household Members none Living Arrangements House Number of Floors (Floors) Two Floors Number of Stairs To Enter/Railing? 7 steps to get to main level of house Home Environment Standard Height Toilet,Tub/ Shower Home Equipment Front Wheel Walker,Four Wheel Walker,Shower Seat without Backrest,Hand Held Shower,Grab Bars Near Toilet,Grab Bars In Shower Employment Status Retired Additional Social History Comment he went SNF rehab after discharge from July surgery, he reports he decided to leave rehab and go home in September, he reports having difficulty recovering from his 07-14-21 back surgery M2 PT-IP Current Condition Start: 03/26/22 17:16 Freq: NEEDED Status: Active Protocol: Document 03/26/22 12:05 [facility] (Rec: 03/26/22 17:56 [facility] [id number]) Physical Therapy Current Condition Current Condition Evaluation Date 03/26/22 Treatment Diagnosis TLIF T11-12, right LE weakness and impaired mobility/gait Onset Date 03/25/22 M3 PT-IP Subjective Start: 03/26/22 17:16 Freq: NEEDED Status: Active Protocol: Document 03/26/22 12:05 [facility] (Rec: 03/26/22 17:56 [facility] [id number]) Subjective Physical Therapy Visit Type Type Initial Evaluation Visit Start Time 11:40 Visit Stop Time 12:05 Total Visit Minutes 25 Number of MONITORING SPECIALIST Visits 0 Physical Therapy Visit Comments Patient Comments He reports his right leg feels very weak since surgery Patient Goals be able to go home Therapy Pain Assessment Pain When Pain Assessed During Mobility Pain Present Pain Present Pain Reported Location Back Intensity 2 Scale Used Numeric (0 - 10) Description Aching,Tender,With Movement Pain Management Techniques Re-positioning,Timing of Activity with Medications M4 PT-IP Mobility and Gait Start: 03/26/22 17:16 Freq: NEEDED Status: Active Protocol: Document 03/26/22 12:05 [facility] (Rec: 03/26/22 17:56 [facility] [id number]) PT-Bed Mobility Assessment Rolling Level of Assist Minimal Assistance Supine to Sit Supine to Sit Moderate Assistance,Bedrails Sit to Supine Sit to Supine Moderate Assistance,Bedrails Scooting Scooting to Edge of Bed Standby Assistance PT-Transfer Assessment Sit to and From Stand Sit to and from Stand Moderate Assistance,2 Person Assistance,Use of Upper Extremities Equipment Transfer Assistive Device Gait Belt,Front Wheeled Walker Comments Mobility Comments Pt sat up on edge of bed and progressed to standing with two person assist and the fWW. He stood 3 times. He needs assistance to position his feet on the floor before standing because left foot will be on top of right and pt not aware. Pt using significant UE support on the FWW to maintain standing. Gait Assessment Comments Gait Comments unable this visit PT-Balance Assessment Sitting Balance and Reactions Static Sitting Balance Ability Good Dynamic Sitting Balance Ability Good Standing Balance and Reactions Static Standing Balance Ability Poor Dynamic Standing Balance Ability Poor Device Used FWW M5 PT-IP Objective Assessments Start: 03/26/22 17:16 Freq: NEEDED Status: Active Protocol: Document 03/26/22 12:05 [facility] (Rec: 03/26/22 17:56 [facility] [id number]) Orientation Orientation/Cognition Level of Alertness Alert Orientation Name,Age,Birthday,Month,Date, Year,Day of Week,Place, Situation Language Function Ability No Deficits Noted Safety Awareness Understands Safety Issues Memory Description No Deficits Noted Gross Range of Motion Upper Extremity ROM Assessment Within Functional Limits Lower Extremity ROM Assessment Right Impaired Impairments increased extensor tone throughout right LE, DF to neutral only passively Strength Upper Extremity Strength Assessment Within Functional Limits Lower Extremity Strength Assessment Bilaterally Impaired Hip flexion left 4/5, right 2-/5 Knee extension left 4+/5, right 2+/ 5 Ankle DF left 4+/5, left 0/5; PF left 4/5, right 3+/5 Comments Strength Comments pt reports increased right LE weakness since this back surgery Coordination Assessment Gross Coordination Gross Coordination Impaired Assessment Coordination Comments impairment in association with right LE weakness, UE's are WFL Sensation Assessment Sensation Gross Sensation Right LE Impaired,Left LE Impaired Light Touch Impaired Proprioception (Position) Impaired Sensation Description Numbness Comments Sensation Comments pt unable to feel the floor with bilateral feet, pt unable to feel that one foot was on top of the other foot, he describes numbness throughout the right LE Muscle Tone Muscle Tone WNL No Comments Muscle Tone Comments increased extensor tone right LE throughout, can assist pt to move through it M6 PT-IP Treatment Start: 03/26/22 17:16 Freq: NEEDED Status: Active Protocol: Document 03/26/22 12:05 [facility] (Rec: 03/26/22 17:56 [facility] [id number]) Physical Therapy Treatment Education Education Provided Precautions,Safety M7 PT-IP Assessment and Plan Start: 03/26/22 17:16 Freq: NEEDED Status: Active Protocol: Document 03/26/22 12:05 [facility] (Rec: 03/26/22 17:56 [facility] [id number]) PT Summary Assessment and Plan Potential Rehabilitation Potential Fair Status of Condition at Evaluation Unstable Summary Impairments Pain,ROM,Strength,Balance, Sensation,Tone,Bed Mobility, Transfers,Gait,Activity Tolerance Assessment Summary Wyatt shows good effort with physical therapy. He has significant right LE weakness and increased extensor tone this visit. He was able to stand with the FWW and two person assist but unable to progress to transfers nor gait . He his at a high fall risk due to his right LE weakness and bilateral LE sensory impairments. He is very motivated to return home and does not feel SNF rehab offered intense enough therapy in July. He would be a good candidate for acute rehab unit since he has a complex medical situation and good activity tolerance. His greatest barrier to going home at this time is the 7 steps up to the main living level of his house. Will continue to assess him for discharge planning as he improves medically. Goals Bed Mobility Goal Contact Guard Assistance, Minimal Assistance Transfer Goal Moderate Assistance,Front Wheeled Walker Gait Goal Moderate Assistance,Maximal Assistance Gait Distance 10 Other Goals Squat pivot or slide board transfers bed-chair with CG/ min asist Days to Meet Goals 7 Frequency of Treatment Frequency Of Treatment Once a Day Treatment Plan Physical Therapy Treatment Plan Bed Mobility Training,Transfer Training,Gait Training, Therapeutic Exercise,Balance Retraining,Post Op Education, Discharge Planning, Neuromuscular Re-ed Other Recommendations and Next Treatment trial power sit-stand if LE Focus weakness continues and his surgical area can be protected Precautions Lumbar Precautions Log Roll,No Twisting,Limit Bending,Lifting Restriction of 10 lbs,Gait Belt above Incisional Area Recommendations To Nursing Amount of Assist Needed 2 Person Assist,Mechanical Lift Discharge Recommendations PT Discharge Recommendations SNF Rehab,Acute Rehab Other Discharge Recommendations he is a good candidate for acute rehab due to the complexity of his condition Transportation Needs at Discharge Wheelchair/Cabulance,Stretcher /Ambulance
[2022-03-26] MEDS: MAG HYDROX/ALUM/SIMETH 30 ML UDC PO (15:56)
[2022-03-27 04:02] VITALS: BP 160/81; PULSE 102; RESP 16; TEMP 36.5; O2SAT 96
[2022-03-27 07:34] VITALS: BP 158/78; PULSE 91; RESP 18; TEMP 36.3; O2SAT 99
[2022-03-27] MEDS: DEXAMETHASONE 10 MG/ML VIAL IV (10:18)
[2022-03-27] MEDS: SODIUM CHLORIDE 0.9% 1,000 ML 100 ML IV (10:19)
[2022-03-27 11:00] VITALS: BP 155/70; PULSE 81; RESP 18; TEMP 36.5; O2SAT 99
--- NOTE | 2022-03-27 12:26 | PT-IP ANOTE ---
Patient is unavailable at this time for treatment. He is retaining urine and needs to be catheterized per nursing. Will try back this afternoon.
--- NOTE | 2022-03-27 15:00 | PT.IPTN ---
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) Spinal stenosis, thoracic region (03/25/22) Surgery Performed Operation Date: 03/25/22 14:45 Actual Procedures p T11-12 laminectomy, fusion - Stephen Baker MD Physical Therapy Treatment Note M2 PT-IP Current Condition Start: 03/26/22 17:16 Freq: NEEDED Status: Active Protocol: Document 03/26/22 12:05 DLM (Rec: 03/26/22 17:56 DLM [id number]) Physical Therapy Current Condition Current Condition Evaluation Date 03/26/22 Treatment Diagnosis TLIF T11-12, right LE weakness and impaired mobility/gait Onset Date 03/25/22 M3 PT-IP Subjective Start: 03/26/22 17:16 Freq: NEEDED Status: Active Protocol: Document 03/27/22 15:00 DLM (Rec: 03/27/22 17:39 DLM [id number]) Subjective Physical Therapy Visit Type Type Treatment Note Visit Start Time 14:25 Visit Stop Time 15:00 Total Visit Minutes 35 Notes second person used during power sit-stand use for pt safety Number of [employer] Visits 0 Physical Therapy Visit Comments Patient Comments About 4 AM his right LE felt stronger but it does not now. He reports having difficulty with bowel and bladder since surgery. Patient Goals be able to go home Therapy Pain Assessment Pain When Pain Assessed During Mobility Pain Present Pain Present Pain Reported Location Back Intensity 3 Scale Used Numeric (0 - 10) Description Aching,Tender,With Movement Pain Behaviors Guarding Pain Management Techniques Re-positioning,Timing of Activity with Medications M4 PT-IP Mobility and Gait Start: 03/26/22 17:16 Freq: NEEDED Status: Active Protocol: Document 03/27/22 15:00 DLM (Rec: 03/27/22 17:39 DLM [id number]) PT-Bed Mobility Assessment Rolling Type of Rolling Log Rolling Level of Assist Minimal Assistance Supine to Sit Supine to Sit Moderate Assistance,Bedrails Sit to Supine Sit to Supine Moderate Assistance,Bedrails Scooting Scooting to Edge of Bed Standby Assistance PT-Transfer Assessment Comments Mobility Comments Pt sat edge of bed this visit, trunk musculature fatigues sitting without support and he needs to lean posterior onto his UE's. Pt able to use his UE's to scoot laterally on the bed. He continues to show decreased awareness of his feet positioning on the floor and intermittently has his left foot on top of his right foot. Pt reports he can not feel if his feet are on the floor. Gait Assessment Comments Gait Comments Pt unable to ambulate. Standing performed with the power sit to stand to increase his time in static standing and manage his fall risks, pt participates in the sit to stand and then while standing he activated trunk extension and knee extension. Caution taken to keep harness off his incision (kept above it). Pt using his UE's on the machine to assist with standing. PT-Balance Assessment Sitting Balance and Reactions Static Sitting Balance Ability Good Dynamic Sitting Balance Ability Good Comments Other Balance Tests/Deviations/Treatment his sitting trunk balance : decreases as he fatigues sitting without support M5 PT-IP Objective Assessments Start: 03/26/22 17:16 Freq: NEEDED Status: Active Protocol: Document 03/26/22 12:05 DL (Rec: 03/26/22 17:56 DL [id number]) Orientation Orientation/Cognition Level of Alertness Alert Orientation Name,Age,Birthday,Month,Date, Year,Day of Week,Place, Situation Language Function Ability No Deficits Noted Safety Awareness Understands Safety Issues Memory Description No Deficits Noted Gross Range of Motion Upper Extremity ROM Assessment Within Functional Limits Lower Extremity ROM Assessment Right Impaired Impairments increased extensor tone throughout right LE, DF to neutral only passively Strength Upper Extremity Strength Assessment Within Functional Limits Lower Extremity Strength Assessment Bilaterally Impaired Hip flexion left 4/5, right 2-/5 Knee extension left 4+/5, right 2+/ 5 Ankle DF left 4+/5, left 0/5; PF left 4/5, right 3+/5 Comments Strength Comments pt reports increased right LE weakness since this back surgery Coordination Assessment Gross Coordination Gross Coordination Impaired Assessment Coordination Comments impairment in association with right LE weakness, UE's are WFL Sensation Assessment Sensation Gross Sensation Right LE Impaired,Left LE Impaired Light Touch Impaired Proprioception (Position) Impaired Sensation Description Numbness Comments Sensation Comments pt unable to feel the floor with bilateral feet, pt unable to feel that one foot was on top of the other foot, he describes numbness throughout the right LE Muscle Tone Muscle Tone WNL No Comments Muscle Tone Comments increased extensor tone right LE throughout, can assist pt to move through it M6 PT-IP Treatment Start: 03/26/22 17:16 Freq: NEEDED Status: Active Protocol: Document 03/27/22 15:00 DLM (Rec: 03/27/22 17:39 DL [id number]) Physical Therapy Treatment Exercises Exercises Ankle Pumps,Quad Sets,Heel Slides,Supine Hip Abduction, Seated Knee Flexion/Extension Education Education Provided Precautions,Safety Other Treatments Other Treatment Performed assisted pt in LE exercises in bed and seated right LE DF 0/5, but toe extension 3+/5 M7 PT-IP Assessment and Plan Start: 03/26/22 17:16 Freq: NEEDED Status: Active Protocol: Document 03/27/22 15:00 DLM (Rec: 03/27/22 17:39 DL [id number]) PT Summary Assessment and Plan Summary Impairments Pain,ROM,Strength,Balance, Sensation,Tone,Bed Mobility, Transfers,Gait,Activity Tolerance Progress Towards Goals Slow Progress due to Medical Issues,Slow Progress due to Activity Tolerance Assessment Summary Wyatt shows good effort with physical therapy. His right LE weakness continues with increased extensor tone. Pt having difficulty with urine retention today. The power sit -stand was used to increase his time in static standing. He tolerated it well with caution used to keep the harness off his incisional area. Pt is able to scoot laterally seated on edge of bed with good UE support. Will work towards functional transfers and sitting up in chair as able. Goals Bed Mobility Goal Contact Guard Assistance, Minimal Assistance Transfer Goal Moderate Assistance,Front Wheeled Walker Gait Goal Moderate Assistance,Maximal Assistance Gait Distance 10 Other Goals Squat pivot or slide board transfers bed-chair with CG/ min asist Days to Meet Goals 7 Frequency of Treatment Frequency Of Treatment Once a Day Treatment Plan Physical Therapy Treatment Plan Bed Mobility Training,Transfer Training,Gait Training, Therapeutic Exercise,Balance Retraining,Post Op Education, Discharge Planning, Neuromuscular Re-ed Other Recommendations and Next Treatment use power sit-stand to Focus increase standing time, trial scoot/slide transfers for bedside commode and wheelchair Precautions Lumbar Precautions Log Roll,No Twisting,Limit Bending,Lifting Restriction of 10 lbs,Gait Belt above Incisional Area Other Precautions high fall risk due to LE weakness and impaired sensation Recommendations To Nursing Amount of Assist Needed 2 Person Assist,Mechanical Lift Discharge Recommendations PT Discharge Recommendations SNF Rehab,Acute Rehab Other Discharge Recommendations he is a good candidate for acute rehab with good activity tolerance Transportation Needs at Discharge Wheelchair/Cabulance,Stretcher /Ambulance
--- NOTE | 2022-03-27 15:00 | PT.IPTN ---
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) Spinal stenosis, thoracic region (03/25/22) Surgery Performed Operation Date: 03/25/22 14:45 Actual Procedures p T11-12 laminectomy, fusion - Stephen Baker MD Physical Therapy Treatment Note M2 PT-IP Current Condition Start: 03/26/22 17:16 Freq: NEEDED Status: Active Protocol: Document 03/26/22 12:05 DLM (Rec: 03/26/22 17:56 DLM [id number]) Physical Therapy Current Condition Current Condition Evaluation Date 03/26/22 Treatment Diagnosis TLIF T11-12, right LE weakness and impaired mobility/gait Onset Date 03/25/22 M3 PT-IP Subjective Start: 03/26/22 17:16 Freq: NEEDED Status: Active Protocol: Document 03/27/22 15:00 DLM (Rec: 03/27/22 17:39 DLM [id number]) Subjective Physical Therapy Visit Type Type Treatment Note Visit Start Time 14:25 Visit Stop Time 15:00 Total Visit Minutes 35 Notes second person used during power sit-stand use for pt safety Number of [employer] PROFESSIONALS Visits 0 Physical Therapy Visit Comments Patient Comments About 4 AM his right LE felt stronger but it does not now. He reports having difficulty with bowel and bladder since surgery. Patient Goals be able to go home Therapy Pain Assessment Pain When Pain Assessed During Mobility Pain Present Pain Present Pain Reported Location Back Intensity 3 Scale Used Numeric (0 - 10) Description Aching,Tender,With Movement Pain Behaviors Guarding Pain Management Techniques Re-positioning,Timing of Activity with Medications M4 PT-IP Mobility and Gait Start: 03/26/22 17:16 Freq: NEEDED Status: Active Protocol: Document 03/27/22 15:00 DLM (Rec: 03/27/22 17:39 DLM [id number]) PT-Bed Mobility Assessment Rolling Type of Rolling Log Rolling Level of Assist Minimal Assistance Supine to Sit Supine to Sit Moderate Assistance,Bedrails Sit to Supine Sit to Supine Moderate Assistance,Bedrails Scooting Scooting to Edge of Bed Standby Assistance PT-Transfer Assessment Comments Mobility Comments Pt sat edge of bed this visit, trunk musculature fatigues sitting without support and he needs to lean posterior onto his UE's. Pt able to use his UE's to scoot laterally on the bed. He continues to show decreased awareness of his feet positioning on the floor and intermittently has his left foot on top of his right foot. Pt reports he can not feel if his feet are on the floor. Gait Assessment Comments Gait Comments Pt unable to ambulate. Standing performed with the power sit to stand to increase his time in static standing and manage his fall risks, pt participates in the sit to stand and then while standing he activated trunk extension and knee extension. Caution taken to keep harness off his incision (kept above it). Pt using his UE's on the machine to assist with standing. PT-Balance Assessment Sitting Balance and Reactions Static Sitting Balance Ability Good Dynamic Sitting Balance Ability Good Comments Other Balance Tests/Deviations/Treatment his sitting trunk balance : decreases as he fatigues sitting without support M5 PT-IP Objective Assessments Start: 03/26/22 17:16 Freq: NEEDED Status: Active Protocol: Document 03/26/22 12:05 DL (Rec: 03/26/22 17:56 DL [id number]) Orientation Orientation/Cognition Level of Alertness Alert Orientation Name,Age,Birthday,Month,Date, Year,Day of Week,Place, Situation Language Function Ability No Deficits Noted Safety Awareness Understands Safety Issues Memory Description No Deficits Noted Gross Range of Motion Upper Extremity ROM Assessment Within Functional Limits Lower Extremity ROM Assessment Right Impaired Impairments increased extensor tone throughout right LE, DF to neutral only passively Strength Upper Extremity Strength Assessment Within Functional Limits Lower Extremity Strength Assessment Bilaterally Impaired Hip flexion left 4/5, right 2-/5 Knee extension left 4+/5, right 2+/ 5 Ankle DF left 4+/5, left 0/5; PF left 4/5, right 3+/5 Comments Strength Comments pt reports increased right LE weakness since this back surgery Coordination Assessment Gross Coordination Gross Coordination Impaired Assessment Coordination Comments impairment in association with right LE weakness, UE's are WFL Sensation Assessment Sensation Gross Sensation Right LE Impaired,Left LE Impaired Light Touch Impaired Proprioception (Position) Impaired Sensation Description Numbness Comments Sensation Comments pt unable to feel the floor with bilateral feet, pt unable to feel that one foot was on top of the other foot, he describes numbness throughout the right LE Muscle Tone Muscle Tone WNL No Comments Muscle Tone Comments increased extensor tone right LE throughout, can assist pt to move through it M6 PT-IP Treatment Start: 03/26/22 17:16 Freq: NEEDED Status: Active Protocol: Document 03/27/22 15:00 DLM (Rec: 03/27/22 17:39 DLM [id number]) Physical Therapy Treatment Education Education Provided Precautions,Safety M7 PT-IP Assessment and Plan Start: 03/26/22 17:16 Freq: NEEDED Status: Active Protocol: Document 03/27/22 15:00 DLM (Rec: 03/27/22 17:39 DLM [id number]) PT Summary Assessment and Plan Summary Impairments Pain,ROM,Strength,Balance, Sensation,Tone,Bed Mobility, Transfers,Gait,Activity Tolerance Progress Towards Goals Slow Progress due to Medical Issues,Slow Progress due to Activity Tolerance Assessment Summary Wyatt shows good effort with physical therapy. His right LE weakness continues with increased extensor tone. Pt having difficulty with urine retention today. The power sit -stand was used to increase his time in static standing. He tolerated it well with caution used to keep the harness off his incisional area. Pt is able to scoot laterally seated on edge of bed with good UE support. Will work towards functional transfers and sitting up in chair as able. Goals Bed Mobility Goal Contact Guard Assistance, Minimal Assistance Transfer Goal Moderate Assistance,Front Wheeled Walker Gait Goal Moderate Assistance,Maximal Assistance Gait Distance 10 Other Goals Squat pivot or slide board transfers bed-chair with CG/ min asist Days to Meet Goals 7 Frequency of Treatment Frequency Of Treatment Once a Day Treatment Plan Physical Therapy Treatment Plan Bed Mobility Training,Transfer Training,Gait Training, Therapeutic Exercise,Balance Retraining,Post Op Education, Discharge Planning, Neuromuscular Re-ed Other Recommendations and Next Treatment use power sit-stand to Focus increase standing time, trial scoot/slide transfers for bedside commode and wheelchair Precautions Lumbar Precautions Log Roll,No Twisting,Limit Bending,Lifting Restriction of 10 lbs,Gait Belt above Incisional Area Other Precautions high fall risk due to LE weakness and impaired sensation Recommendations To Nursing Amount of Assist Needed 2 Person Assist,Mechanical Lift Discharge Recommendations PT Discharge Recommendations SNF Rehab,Acute Rehab Other Discharge Recommendations he is a good candidate for acute rehab with good activity tolerance Transportation Needs at Discharge Wheelchair/Cabulance,Stretcher /Ambulance
--- NOTE | 2022-03-27 15:09 | OT.IP.TRT ---
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) Spinal stenosis, thoracic region (03/25/22) Surgery Performed Operation Date: 03/25/22 14:45 Actual Procedures p T11-12 laminectomy, fusion - Stephen Baker MD Occupational Therapy Treatment Note M2 OT-IP Current Condition Start: 03/26/22 17:20 Freq: Status: Active Protocol: Document 03/26/22 11:35 [facility] (Rec: 03/26/22 17:52 [facility] [id number]) Occupational Therapy Current Condition Current Condition Evaluation Date 03/26/22 Treatment Diagnosis S/p T11-12 TLIF Diagnosis Onset Date 03/25/22 Post Operative Precautions Lumbar Precautions Log Roll,No Twisting,Limit Bending,Lifting Restriction of 10 lbs,Gait Belt above Incisional Area M3 OT- IP Subjective and Pain Start: 03/26/22 17:20 Freq: Status: Active Protocol: Document 03/27/22 16:31 [facility] (Rec: 03/27/22 16:44 [facility] [id number]) OT- Subjective Occupational Therapy Visit Type Type Treatment Note Visit Start Time 14:39 Visit Stop Time 15:09 Total Visit Minutes 30 Occupational Therapy Visit Comments Patient Comments Pt very motivated to get better and willing to go to acute rehab as felt last time when he went to skilled rehab that he was not doing enough therapies. This time pt realizes that he has more medical needs and issues specifically with his BLE and really hoping to go to acute rehab this time around. Patient/Caregiver Goals To get better. M4 OT- IP ADL's Start: 03/26/22 17:20 Freq: Status: Active Protocol: Document 03/27/22 16:31 [facility] (Rec: 03/27/22 16:44 [facility] [id number]) OT PTV-Iact-Pjeuvoe Comments OT Self-Feeding Comments Pt not hungry but willing to have an Ensure, okayed by nurse to give to the pt. OT ADL-Grooming Comments OT Grooming Comments Pt able to wash his face after set-up of wash cloth. OT ADL-Oral Care Comments Oral Care Comments not performed OT ADL-Dressing General Eval Lower Body Dressing Ability Maximum Assistance Comments OT Dressing Comments Assist to help get his brief on. OT ADL-Toileting General Evaluation Toileting Ability Maximum Assistance Comments OT Toileting Comments Pt needing assist for hygiene, brief change and also retaining urine at this time and needing to be cathed. OT ADL-Bathing Comments OT Bathing Comments Sponge bath more appropriate at this time. M5 OT- IP IADL's Start: 03/26/22 17:20 Freq: Status: Active Protocol: Document 03/26/22 11:35 [facility] (Rec: 03/26/22 17:52 [facility] [id number]) OT-Instrumental Activities of Daily Living Home Safety Awareness Home Safety Comments Pt states that his son will stay with him as long as it is needed if going home. Medication Management Medication Management Comments Pt states able to do prior. Money Management Money Management Comments Pt states able to do prior. Meal Preparation Meal Preparation Comments Pt will need assist Road Repairer Road Repairer Comments Pt will need assist M6 OT- IP Functional Cognition Start: 03/26/22 17:20 Freq: Status: Active Protocol: Document 03/27/22 16:31 [facility] (Rec: 03/27/22 16:44 [facility] [id number]) Cognitive Factors Limiting Selfcare Function Cognitive Comments Cognitive Assessment Comments Pt intact to be able to follow directions. M7 OT- IP Mobility and Balance Start: 03/26/22 17:20 Freq: Status: Active Protocol: Document 03/27/22 16:31 [facility] (Rec: 03/27/22 16:44 [facility] [id number]) OT- Bed Mobility Assessment Supine to Sit Supine to Sit Assist Moderate Assistance Sit to Supine Sit to Supine Assist Moderate Assistance OT-Transfer Assessment Comments Mobility Comments MODA to help with bed mobility needs. Pt able to scoot with mainly his BUE up in the bed with CGA. Pt's RLE still having tone and very tight and therefore use of sit to stander with pt to work on weight bearing through his feet. Strap was place above his bandage and use of his arms as well to assist to stand while use of machine to assist him to stand. Pt's RLE tends to want to roll in and his left hips drops and left leg hyperextends. OT- Balance Assessment Sitting Balance and Reactions Static Sitting Balance Ability Good Standing Balance and Reactions Static Standing Balance Ability Poor M8 OT- IP Objective Assessments Start: 03/26/22 17:20 Freq: Status: Active Protocol: Document 03/27/22 16:31 [facility] (Rec: 03/27/22 16:44 [facility] [id number]) OT-Muscle Tone Assessment Comments Muscle Tone Comments Increased tone for RLE. RLE tends to want to internally roll in. M9 OT- IP Assessment and Plan Start: 03/26/22 17:20 Freq: Status: Active Protocol: Document 03/27/22 16:31 [facility] (Rec: 03/27/22 16:44 [facility] [id number]) OT Summary Assessment and Plan Potential Rehabilitation Potential Good Analytic Complexity at Evaluation Moderate Summary OT Impairments Pain,Strength,Balance, Coordination,Sensation, Functional Mobility,Grooming, Dressing,Toileting,Bathing, Toilet Transfers,Shower Transfers,Activity Tolerance Progress Towards Goals Slow Progress due to Pain,Slow Progress due to Medical Issues Assessment Summary Pt very motivated to go to acute rehab and would be good to work on urine/bowel program , weight bearing through his feet to help work towards functional mobility, increase his independence with ADL via standing or if having to be from a seated level pending how his function returns for his BLE. Pt is far from his baseline after his back surgery and now has significant BLE weakness and neurological symptoms. Pt is highly motivated to get better . Goals Self-Feeding Goal Independent Grooming Goal Independent Dressing Goal Independent Toileting Goal Independent Bathing Goal Independent Toilet Transfer Goal Independent Shower Transfer Goal Independent Days to Meet Goals 50 Frequency of Treatment Frequency Of Treatment Once a Day Treatment Plan OT Treatment Plan ADL Training,Functional Mobility,Patient/Family Education,Discharge Planning Other Treatment Recommendations and Next Sliding board transfer with MOD Treatment Focus A x1. Discharge Recommendations OT Discharge Recommendations Acute Rehab Transportation Needs at Discharge Wheelchair/Cabulance,Stretcher /Ambulance
--- NOTE | 2022-03-27 15:32 | CM.DPC ---
DCP Cont: P.T. have indicated, patient will need snf, is max assist. At this time, they are recommending acute inpaient rehab.Called Regine at [facility]. Confirmed that they have beds available. Patient has [employer] Medicare, so they will need to get auth, may not have until Wednesday. It is noted that original plan was for son to care for patient, from out of town. Sent referral over to Regine at [facility]. P: DCP to continue to follow. Regine was sent over the face sheet, H&P, operative note, med sheets, vital sheets, P.T, and O.T. notes. Will bring patient the brochure for the facility. Cherrie Palomo RN/[employer]
[2022-03-27 15:35] VITALS: BP 152/71; PULSE 107; RESP 16; TEMP 36.3; O2SAT 98
[2022-03-27 15:53] LABS: Hematocrit 37.2 % (41-53); Hemoglobin 12.1 g/dL (13.5-17.5)
--- NOTE | 2022-03-27 16:47 | P.PN_ITS ---
Subjective Subjective Date Patient Seen: 03/27/22 Time Patient Seen: 12:20 Interval history: The patient is complaining of moderate mid back pain. The main concern was his significant decrease in neurovascular status during the initial slip prior to surgery positioning. Please see plan for further details. He is currently working with physical therapy and occupational therapy. He notes that his baseline sensation is returning and right feels comparable to left. He is still complaining of significant right-sided lower extremity weakness, although this has improved somewhat from yesterday. He is currently on IV steroids due to his neurologic changes. Exam Vital Signs (past 8 hours): - 03/27/22 11:00 03/27/22 15:35 Temperature 97.7 F 97.4 F L Pulse Rate 81 107 H Respiratory Rate 18 16 Blood Pressure 155/70 H 152/71 H Pulse Oximetry 99 98 Oxygen Flow Rate 0 0 Oxygen Delivery Method Room Air Oxygen Flow Rate 0 Narrative Exam Narrative: Pleasant 86-year-old male, resting comfortably in bed, no acute distress. Physical therapy and occupational therapy are at bedside. Bilateral lower extremity: Sensation is grossly intact throughout all dermatomes bilaterally, which is improved from yesterday. Strength is intact on his left lower extremity throughout, right lower extremity demonstrates 3+ with hip flexion, EHL is 4/5, plantar flexion is 3/5, dorsiflexion is 3/5. Objective Labs Result Diagrams: 03/27/22 15:35 Labs: Laboratory Results - last 24 hr 03/27/22 15:35 Hgb 12.1 L Hct 37.2 L PFSH Medical History Asthma Graves' disease History of prosthetic unicompartmental arthroplasty of left knee (~1999) HTN (hypertension) Hyperthyroidism Precancerous lesion Sciatica Spinal stenosis Surgical History History of colon resection (~1969) History of total left hip replacement (~1999) Hx of sinus surgery (~2018) S/P lumbar spinal fusion (07/14/21) Social History household members: none Smoking Status: Never smoker alcohol intake: current Assessment & Plan Post-op Postoperative Procedures: Procedures Operation Date: 03/25/22 14:45 Actual Procedure Side Surgeon p T11-12 laminectomy, fusion Stephen Baker MD Postoperative day: 2 Postoperative status narrative: Mr. Kruger is POD#2 s/p T11-12 laminectomy and posterior fusion with instrumentation Postoperative plan narrative: -Patient had significant drop in baseline EMG and motor evoked potential from neuromonitoring after patient was placed into prone position prior to starting surgery. -Post surgery, patient had slight recovery in his left sided neuromonitoring signals. Patient had significant post surgery physical exam with decreased sensation to both legs and significant motor weakness to both legs in multiple muscle groups; he was examined in recovery room post anesthesia prior to transfer to his room on the floor. This was expected and consistent with his int raoperative findings. -On exam today, patient is A&O x3, he has intact sensation to both legs and f eet, he has intact motor exam to his LLE. He has 4+/5 right EHL, 3/5 right quadriceps. -His BP was kept higher intentionally in order to improving perfusion to his neuro structures and facilitate recovery. -He is receiving IV steroids to decrease spinal cord inflammation, which was present on his MRI as hyerintense signal indicating spinal cord edema. -Plan to continue current medical management, take sedating medication only as necessary in order to keep his mean arterial pressure higher than 80 to improve tissue perfusion. -continue with physical therapy/occupational therapy. No bending, lifting, twisting x6 weeks. -Will continue monitor and assess his neuro status, which is slightly improved from postop day 1. He is still having significant limitations with right lower extremity motor functions. -there is significant concern about him being safe upon discharge. Physical therapy and occupational therapy are recommending an acute rehab facility for more intensive physical therapy, and I concur with this plan. -disposition, to be determined. Likely to acute rehab facility in the next 1-3 days.
[2022-03-27] MEDS: MAG HYDROX/ALUM/SIMETH 30 ML UDC PO (19:36)
[2022-03-27] MEDS: DOCUSATE 100 MG CAPSULE PO (19:37)
[2022-03-27] MEDS: SENNOSIDES 8.6 MG TABLET 17.2 MG PO (19:37)
[2022-03-27 20:00] VITALS: BP 141/81; PULSE 97; RESP 17; TEMP 36.8; O2SAT 95
[2022-03-28] VITALS: BP 158/83; PULSE 96; RESP 17; TEMP 37.2; O2SAT 95
[2022-03-28 04:00] VITALS: BP 160/81; PULSE 89; RESP 21; TEMP 36.5; O2SAT 97
--- NOTE | 2022-03-28 04:06 | PC.NURSE ---
Did not use the urinal all shift. Brief was wet, but when we bladder scanned him noted 672 ml. in the bladder. In & out cath. done & drained 1050 ml. of clear yellow urine. Will monitor & Cont. POC
--- NOTE | 2022-03-28 07:33 | CM.DPC ---
DCP Cont: Faxed DC Summary to [facility]. Michelle from [facility] had left a message regarding needing the DC Summary and if there were any wound orders. Did not note any wound orders, left her a message regarding this as well. Cherrie Palomo RN/Liquor Establishment Manager
[2022-03-28 08:06] VITALS: BP 138/70; PULSE 89; RESP 16; TEMP 36.7; O2SAT 95
--- NOTE | 2022-03-28 08:50 | CM.DPC ---
Addendum entered by Cherrie Palomo R.N. 03/28/22 16:44: Hospitalist has not yet put in her note, as was stated below, [facility] is requesting a hospitalist consult so they can submit auth. Did ask patient about back up, such as [facility], or other facility, and really hopes for acute rehab. This DC Senior Business Process Analyst has left a message with Lokesh at [facility] to see if their provider can accept. If they can't accept, will need to revisit home versus prison. Original Note: DCP CONT: Regine at [facility] called and stated, patient looks good, will have their provider review. She did inquire if patient was being seen by a hospitalist, for she indicated that it would help get him authorized by [employer]. She indicated that insurance companies also want a medical need. Spoke to Dr. Lambert, orthopedist, and updated him. He stated that he would review chart and see if hospitalist consult is appropriate. Patient's son, Eamon, had called, since he came up here to assist his father from out of town. Let him know that this DC Senior Business Process Analyst is attempting acute inpatient rehab, as recommended by the therapy team, unless patient improves, and can go home this week-end. Original plan was for him to go home with son's assistance. Son is prepared to take patient home if he does improve. P: DCP to continue to follow. Will see how he does with P.T. today, and if home could be an option. Lokesh at [facility] will call this DC Senior Business Process Analyst back if they can accept patient. If unable to accept, will attempt skilled facilities. Cherrie Palomo RN/Advisory Application Developer
--- NOTE | 2022-03-28 09:27 | PM.PNPO.1 ---
Subjective Subjective Interval history: The patient reports he remains numb and has difficulty moving his right leg. Exam Vital Signs (past 8 hours): - 03/28/22 04:00 03/28/22 08:06 Temperature 97.7 F 98.0 F Pulse Rate 89 89 Respiratory Rate 21 16 Blood Pressure 160/81 H 138/70 Pulse Oximetry 97 95 Oxygen Flow Rate 0 Oxygen Delivery Method Room Air Oxygen Flow Rate 0 Narrative Exam Narrative: The patient is examined while lying in his hospital bed. He appears comfortable. He can dorsiflex his great toe on the right but not his ankle. He can dorsiflex and plantar flex his toes and ankle on the left. He can not lift either leg off the mattress. Objective Labs Result Diagrams: 03/27/22 15:35 Labs: Laboratory Results - last 24 hr 03/27/22 15:35 Hgb 12.1 L Hct 37.2 L PFSH Medical History Asthma Graves' disease History of prosthetic unicompartmental arthroplasty of left knee (~1999) HTN (hypertension) Hyperthyroidism Precancerous lesion Sciatica Spinal stenosis Surgical History History of colon resection (~1969) History of total left hip replacement (~1999) Hx of sinus surgery (~2018) S/P lumbar spinal fusion (07/14/21) Social History household members: none Smoking Status: Never smoker alcohol intake: current Assessment & Plan Post-op Postoperative Procedures: Procedures Operation Date: 03/25/22 14:45 Actual Procedure Side Surgeon p T11-12 laminectomy, fusion Stephen Baker MD Postoperative day: 3 Postoperative status: other (Neurologic deficit) Postoperative status narrative: The patient has a continued neurologic deficit after loss of signal while positioning for surgery Wednesday. He continues to have significant weakness on examination. Postoperative plan: routine post-op care (Care for neurologic deficit as outlined by Dr. Baker.) and discharge (Plan for discharge to inpatient rehabilitation based on his progress with physical therapy. We will obtain a hospitalist consult in preparation for transfer to the inpatient rehabilitation unit.) Postoperative plan narrative: As noted above, the patient will be transferred to an inpatient rehabilitation facility. This requires evaluation by a medicine specialists prior to transfer and we have consulted the hospitalist for this. In discussion with discharge planning this likely will be Wednesday. We will continue the supportive care as outlined by Dr. Baker in his notes. Time Spent With Patient Time with patient: 15-24 minutes
[2022-03-28] MEDS: DOCUSATE 100 MG CAPSULE PO (10:11)
[2022-03-28] MEDS: DEXAMETHASONE 10 MG/ML VIAL IV (10:11)
[2022-03-28] MEDS: SODIUM CHLORIDE 0.9% FLUSH 10 ML IV ×2 (10:11→22:58)
[2022-03-28 12:52] LABS: RBC Urine 0-1/HPF (0-5/HPF)
[2022-03-28 12:53] LABS: Bacteria Urine None Seen; Culture Indicated Urine Specimen Cultured; Squamous Epithelial Cell Urine 1-5 /HPF (0-5/HPF); WBC Urine 5-10/HPF (0-5/HPF)
--- NOTE | 2022-03-28 14:14 | PC.NURSE ---
Alert and oriented, asking appropriate questions. Follows commands. Moving legs knees and feet a bit more.
--- NOTE | 2022-03-28 16:30 | PT.IPTN ---
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) Spinal stenosis, thoracic region (03/25/22) Surgery Performed Operation Date: 03/25/22 14:45 Actual Procedures p T11-12 laminectomy, fusion - Stephen Baker MD Physical Therapy Treatment Note M2 PT-IP Current Condition Start: 03/26/22 17:16 Freq: NEEDED Status: Active Protocol: Document 03/26/22 12:05 DLM (Rec: 03/26/22 17:56 DLM [id number]) Physical Therapy Current Condition Current Condition Evaluation Date 03/26/22 Treatment Diagnosis TLIF T11-12, right LE weakness and impaired mobility/gait Onset Date 03/25/22 M3 PT-IP Subjective Start: 03/26/22 17:16 Freq: NEEDED Status: Active Protocol: Document 03/28/22 16:30 DLM (Rec: 03/28/22 18:21 DLM [id number]) Subjective Physical Therapy Visit Type Type Treatment Note Visit Start Time 15:30 Visit Stop Time 16:30 Total Visit Minutes 60 Number of CHILD SUPPORT CASE OFFICER Visits 0 Physical Therapy Visit Comments Patient Comments He is agreeable to go to acute rehab. He just wants to get stronger. He feels that having a quinones catheter is helping him. Patient Goals be able to go home Therapy Pain Assessment Pain When Pain Assessed During Mobility Pain Present Pain Present Pain Reported Location Back Intensity 3 Scale Used Numeric (0 - 10) Description Aching,Tender,With Movement Pain Management Techniques Re-positioning,Timing of Activity with Medications M4 PT-IP Mobility and Gait Start: 03/26/22 17:16 Freq: NEEDED Status: Active Protocol: Document 03/28/22 16:30 DLM (Rec: 03/28/22 18:21 DLM [id number]) PT-Bed Mobility Assessment Rolling Type of Rolling Log Rolling Level of Assist Minimal Assistance Supine to Sit Supine to Sit Moderate Assistance,Bedrails Sit to Supine Sit to Supine Moderate Assistance,Bedrails Scooting Scooting to Edge of Bed Standby Assistance PT-Transfer Assessment Equipment Transfer Assistive Device Gait Belt,Sliding Board Transfers Transfer Destination Bed,Wheelchair Transfer Technique Lateral Scoot Transfer Ability Level of Assist Moderate Assistance,Use of Upper Extremities Comments Mobility Comments Slide board used to transfer bed to and from wheelchair with armrest removed, heights are even, pt needs assist to place and remove board, he needs assist to keep feet in safe position and avoid scissoring of LE's. Gait Assessment Comments Gait Comments Pt propelled the wheelchair in the vazquez x 200 feet with UE's and feet on footrests, SBA. PT-Balance Assessment Sitting Balance and Reactions Static Sitting Balance Ability Good Dynamic Sitting Balance Ability Fair Comments Other Balance Tests/Deviations/Treatment Sitting edge of bed without UE : support shows intermittent losses of balance posteriorly M5 PT-IP Objective Assessments Start: 03/26/22 17:16 Freq: NEEDED Status: Active Protocol: Document 03/26/22 12:05 DLM (Rec: 03/26/22 17:56 DLM [id number]) Orientation Orientation/Cognition Level of Alertness Alert Orientation Name,Age,Birthday,Month,Date, Year,Day of Week,Place, Situation Language Function Ability No Deficits Noted Safety Awareness Understands Safety Issues Memory Description No Deficits Noted Gross Range of Motion Upper Extremity ROM Assessment Within Functional Limits Lower Extremity ROM Assessment Right Impaired Impairments increased extensor tone throughout right LE, DF to neutral only passively Strength Upper Extremity Strength Assessment Within Functional Limits Lower Extremity Strength Assessment Bilaterally Impaired Hip flexion left 4/5, right 2-/5 Knee extension left 4+/5, right 2+/ 5 Ankle DF left 4+/5, left 0/5; PF left 4/5, right 3+/5 Comments Strength Comments pt reports increased right LE weakness since this back surgery Coordination Assessment Gross Coordination Gross Coordination Impaired Assessment Coordination Comments impairment in association with right LE weakness, UE's are WFL Sensation Assessment Sensation Gross Sensation Right LE Impaired,Left LE Impaired Light Touch Impaired Proprioception (Position) Impaired Sensation Description Numbness Comments Sensation Comments pt unable to feel the floor with bilateral feet, pt unable to feel that one foot was on top of the other foot, he describes numbness throughout the right LE Muscle Tone Muscle Tone WNL No Comments Muscle Tone Comments increased extensor tone right LE throughout, can assist pt to move through it M6 PT-IP Treatment Start: 03/26/22 17:16 Freq: NEEDED Status: Active Protocol: Document 03/28/22 16:30 DLM (Rec: 03/28/22 18:21 DLM [id number]) Physical Therapy Treatment Exercises Exercises Ankle Pumps,Quad Sets,Heel Slides,Supine Hip Abduction, Seated Knee Flexion/Extension Education Education Provided Precautions,Safety Other Treatments Other Treatment Performed Seated UE lifts for core strength/stability on edge of bed. M7 PT-IP Assessment and Plan Start: 03/26/22 17:16 Freq: NEEDED Status: Active Protocol: Document 03/28/22 16:30 DLM (Rec: 03/28/22 18:21 DLM [id number]) PT Summary Assessment and Plan Summary Impairments Pain,ROM,Strength,Balance, Sensation,Tone,Bed Mobility, Transfers,Gait,Activity Tolerance Progress Towards Goals Slow Progress due to Medical Issues,Slow Progress due to Activity Tolerance Assessment Summary Wyatt continues to show good tolerance for therapy this visit. He participated in strengthening exercises. His transfers were progresse to slide board transfers to get in/out of the wheelchair. He was able to propel the wheelchair in the vazquez with his UE's. He continues to have LE weakness with abnormal tone with right more impaired than left. Due to his sensory impairments he intermittently has his left foot on top of his right in sitting with a scissoring of his LE's. Pt is not able to feel when his feet are on the floor. He continues to show good rehab potential. He is very motivated to increase his functional independence and return home. Goals Bed Mobility Goal Contact Guard Assistance, Minimal Assistance Transfer Goal Moderate Assistance,Front Wheeled Walker Gait Goal Moderate Assistance,Maximal Assistance Gait Distance 10 Other Goals Squat pivot or slide board transfers bed-chair with CG/ min asist Days to Meet Goals 7 Frequency of Treatment Frequency Of Treatment Once a Day Treatment Plan Physical Therapy Treatment Plan Bed Mobility Training,Transfer Training,Gait Training, Therapeutic Exercise,Balance Retraining,Post Op Education, Discharge Planning, Neuromuscular Re-ed Other Recommendations and Next Treatment use power sit-stand to Focus increase standing time, scoot/ slide transfers for bedside commode and wheelchair Precautions Lumbar Precautions Log Roll,No Twisting,Limit Bending,Lifting Restriction of 10 lbs,Gait Belt above Incisional Area Other Precautions high fall risk due to LE weakness and impaired sensation Recommendations To Nursing Amount of Assist Needed 2 Person Assist,Mechanical Lift Discharge Recommendations PT Discharge Recommendations SNF Rehab,Acute Rehab Other Discharge Recommendations he is a good candidate for acute rehab with good activity tolerance Transportation Needs at Discharge Wheelchair/Cabulance,Stretcher /Ambulance
[2022-03-28 16:52] VITALS: BP 149/74; PULSE 93; RESP 16; TEMP 36.8; O2SAT 96
--- NOTE | 2022-03-28 19:47 | PM.CN ---
History of Present Illness Consult details Chief complaint: INPT Meds Home Medications and Allergies Home Medications Medication Instructions Recorded Confirmed Type amlodipine 5 mg tablet 5 mg PO DAILY 07/10/21 03/25/22 History fluticasone 500 mcg-salmeterol 50 1 inh inhalation QAM 07/10/21 03/25/22 History mcg/dose blistr powdr for inhalation (Advair Diskus) lisinopril 40 mg tablet 40 mg PO DAILY 07/10/21 03/25/22 History metoprolol succinate 100 mg 100 mg PO DAILY 07/10/21 03/25/22 History tablet,extended release 24 hr acetaminophen 325 mg tablet 650 mg PO Q6HR PRN Pain, Mild 07/16/21 03/25/22 Rx (1-3) #240 tabs Allergies Allergy/AdvReac Type Severity Reaction Status Date / Time azithromycin Allergy Severe Hives Verified 03/25/22 13:29 Exam Vital Signs (past 8 hours): - 03/28/22 16:52 Temperature 98.2 F Pulse Rate 93 H Respiratory Rate 16 Blood Pressure 149/74 H Pulse Oximetry 96 Oxygen Flow Rate 0 Oxygen Delivery Method Room Air Oxygen Flow Rate 0 Objective Labs Result Diagrams: 03/27/22 15:35 Labs: Laboratory Results - last 24 hr 03/28/22 12:23 Urine RBC 0-1/hpf Urine WBC 5-10/hpf H Ur Squamous Epith Cells 1-5 /hpf Urine Bacteria None seen Ur Culture Indicated? Specimen cultured [facility] Medical History Asthma Graves' disease History of prosthetic unicompartmental arthroplasty of left knee (~1999) HTN (hypertension) Hyperthyroidism Precancerous lesion Sciatica Spinal stenosis Surgical History History of colon resection (~1969) History of total left hip replacement (~1999) Hx of sinus surgery (~2019) S/P lumbar spinal fusion (07/14/21) Social History household members: none Tobacco & Substance Use Smoking Status: Never smoker alcohol intake: current Assessment & Plan Assessment & Plan narrative: Patient was seen in consultation today at the request of Dr. Lambert. Patient is being looked at for inpatient acute rehab and insurance requested a medicine consultation to be performed while he is in the hospital. From consult to follow. Time Spent With Patient Critical Care time: I spent a total of [] minutes of critical care time on this patient's care today; this time is exclusive of procedural time.
--- NOTE | 2022-03-28 21:23 | PM.CN ---
History of Present Illness Consult details Chief complaint: INPT Narrative: 86 yo male presently hospital day #3 and POD #3, admitted for T11-12 bilateral laminectomy and facetecomies, T11-12 posterolateral fusion [id number] posterior non-segmental instrumentation for thoracic myelopathy sxs. During surgery, he had a drop in EMG when placed in prone position at the start of surgery. AFter surgery, he had decreased sensation to both legs as well as significant motor weakness. He was found to have some partial paralysis. He was placed on steroids d/t MRI revealing spinal cord inflammation. He has had improvement since surgery and now is able to wiggle his toes on the right side and move his RLE slightly. He feels his LLE is normal. Plans are in place for admission to acute inpatient Rehab at discharge. Pt's insurance is requesting a hospitalist consult. Pt reports he has had some urinary retention. Delarosa catheter was d/c'd yesterday. He required I/O cathx 2 for volumes of 600 and 1L overnight. He continues to be unable to void. He notes his last BM was 5 days ago. He notes normal po intake. NO CP/SOB/N/V/abdominal pain/WILSON/other neuro sxs. Meds Home Medications and Allergies Home Medications Medication Instructions Recorded Confirmed Type amlodipine 5 mg tablet 5 mg PO DAILY 07/10/21 03/25/22 History fluticasone 500 mcg-salmeterol 50 1 inh inhalation QAM 07/10/21 03/25/22 History mcg/dose blistr powdr for inhalation (Advair Diskus) lisinopril 40 mg tablet 40 mg PO DAILY 07/10/21 03/25/22 History metoprolol succinate 100 mg 100 mg PO DAILY 07/10/21 03/25/22 History tablet,extended release 24 hr acetaminophen 325 mg tablet 650 mg PO Q6HR PRN Pain, Mild 07/16/21 03/25/22 Rx (1-3) #240 tabs Allergies Allergy/AdvReac Type Severity Reaction Status Date / Time azithromycin Allergy Severe Hives Verified 03/25/22 13:29 Review of Systems Review of Systems Narrative: All systems reviewed and negative Exam Vital Signs (past 8 hours): - 03/28/22 16:52 Temperature 98.2 F Pulse Rate 93 H Respiratory Rate 16 Blood Pressure 149/74 H Pulse Oximetry 96 Oxygen Flow Rate 0 Oxygen Delivery Method Room Air Oxygen Flow Rate 0 Narrative Exam Narrative: GEN: Pleasant elderly male, A&Ox3, NAD HEENT: NC/AT, PERRL, EOMI, sclera anicteric, conjunctivae clear, OP clear Neck: supple, No LAD, no bruits Chest: CTAB, resp excursions symmetric CV: RRR, no M/R/G Abd: soft, NT/ND, BTx4, no HSM/masses Extr: warm, well perfused no C/C/E Neuro: he is able to move his right leg against gravity, able to wiggle toes, sensation intact t/o Objective Labs Result Diagrams: 03/27/22 15:35 Labs: Laboratory Results - last 24 hr 03/28/22 12:23 Urine RBC 0-1/hpf Urine WBC 5-10/hpf H Ur Squamous Epith Cells 1-5 /hpf Urine Bacteria None seen Ur Culture Indicated? Specimen cultured [facility] Medical History Asthma Graves' disease History of prosthetic unicompartmental arthroplasty of left knee (~1999) HTN (hypertension) Hyperthyroidism Precancerous lesion Sciatica Spinal stenosis Surgical History History of colon resection (~1969) History of total left hip replacement (~1999) Hx of sinus surgery (~2018) S/P lumbar spinal fusion (07/14/21) Social History household members: none Tobacco & Substance Use Smoking Status: Never smoker alcohol intake: current Assessment & Plan Assessment & Plan narrative: 1. Post-op spinal cord edema Ongoing mgmt per surgical team. Inpatient rehab is highly recommended. Pt is very motivated and is exhibiting improvement since surgery. 2. Urinary retention Delarosa to be replaced. Will send a UA to r/o UTI. Certainly he may have a component of neurogenic bladder. Could also be secondary to constipation and not having a BM in 5 days. Will monitor. 3. Constipation Add bowel regimen 4. HTN Continue monitoring. Would recommend restarting his usual antihypertensives 5. Asthma Restart Advair Code Full Prophy Per surgery Dispo Pending Time Spent With Patient Critical Care time: I spent a total of [] minutes of critical care time on this patient's care today; this time is exclusive of procedural time.
[2022-03-28 22:00] VITALS: BP 170/83; PULSE 82; RESP 18; TEMP 37.3; O2SAT 98
[2022-03-28] MEDS: FAMOTIDINE 20 MG TABLET PO (22:57)
[2022-03-29 07:00] VITALS: BP 150/69; PULSE 61; RESP 16; TEMP 36.9; O2SAT 98
--- NOTE | 2022-03-29 09:02 | P.PN_ITS ---
Subjective Subjective Date Patient Seen: 03/29/22 Time Patient Seen: 08:45 Interval history: The patient reports he is seeing some improvement in his leg function and is able to flex and extend his knees partially. Exam Vital Signs (past 8 hours): - 03/29/22 07:00 Temperature 98.4 F Pulse Rate 61 Respiratory Rate 16 Blood Pressure 150/69 H Pulse Oximetry 98 Oxygen Flow Rate 0 Oxygen Delivery Method Room Air Oxygen Flow Rate 0 Narrative Exam Narrative: On physical examination he shows he can bend and straighten his knees. He is still limited in dorsiflexion of the foot on the right. Objective Labs Result Diagrams: 03/27/22 15:35 Labs: Laboratory Results - last 24 hr 03/28/22 12:23 Urine RBC 0-1/hpf Urine WBC 5-10/hpf H Ur Squamous Epith Cells 1-5 /hpf Urine Bacteria None seen Ur Culture Indicated? Specimen cultured [facility] Medical History Asthma Graves' disease History of prosthetic unicompartmental arthroplasty of left knee (~1999) HTN (hypertension) Hyperthyroidism Precancerous lesion Sciatica Spinal stenosis Surgical History History of colon resection (~1969) History of total left hip replacement (~1999) Hx of sinus surgery (~2018) S/P lumbar spinal fusion (07/14/21) Social History household members: none Smoking Status: Never smoker alcohol intake: current Assessment & Plan Post-op Postoperative Procedures: Procedures Operation Date: 03/25/22 14:45 Actual Procedure Side Surgeon p T11-12 laminectomy, fusion Stephen Baker MD Postoperative day: 4 Postoperative status: other (Slight Cristina improving neurologic deficit) Postoperative status narrative: He appears to have some mild improvement in his neurologic deficit. Postoperative plan: routine post-op care and other (Continued supportive care while neurologic recovery continues.) Postoperative plan narrative: He has been seen by the hospitalist service in preparation for his transferred to inpatient rehabilitation likely tomorrow. We will continue the supportive care as outlined in Dr. Baker's plan earlier. Time Spent With Patient Time with patient: less than 15 minutes
[2022-03-29] MEDS: DEXAMETHASONE 10 MG/ML VIAL IV (10:08)
[2022-03-29] MEDS: SENNOSIDES 8.6 MG TABLET 17.2 MG PO ×2 (10:09→22:22)
[2022-03-29] MEDS: FAMOTIDINE 20 MG TABLET PO ×2 (10:09→22:23)
[2022-03-29] MEDS: polyethylene glycoL 3350 17 GM POWD.PACK PO (10:09)
[2022-03-29] MEDS: DOCUSATE 100 MG CAPSULE PO ×2 (10:09→22:22)
[2022-03-29] MEDS: SODIUM CHLORIDE 0.9% FLUSH 10 ML IV ×2 (10:10→22:23)
--- NOTE | 2022-03-29 10:30 | P.PN_ITS ---
Exam Vital Signs (past 8 hours): - 03/29/22 07:00 Temperature 98.4 F Pulse Rate 61 Respiratory Rate 16 Blood Pressure 150/69 H Pulse Oximetry 98 Oxygen Flow Rate 0 Oxygen Delivery Method Room Air Oxygen Flow Rate 0 Objective Labs Result Diagrams: 03/27/22 15:35 Labs: Laboratory Results - last 24 hr 03/28/22 12:23 Urine RBC 0-1/hpf Urine WBC 5-10/hpf H Ur Squamous Epith Cells 1-5 /hpf Urine Bacteria None seen Ur Culture Indicated? Specimen cultured [facility] Medical History Asthma Graves' disease History of prosthetic unicompartmental arthroplasty of left knee (~1999) HTN (hypertension) Hyperthyroidism Precancerous lesion Sciatica Spinal stenosis Surgical History History of colon resection (~1969) History of total left hip replacement (~1999) Hx of sinus surgery (~2018) S/P lumbar spinal fusion (07/14/21) Social History household members: none Smoking Status: Never smoker alcohol intake: current Assessment & Plan Assessment & Plan narrative: POD#3 s/p T11-12 laminectomy and posterior fusion. Patient states he has more ability today to move his legs today than yesterday. Patient stated his right ankle was rolling under his leg prior to surgery, consistent with a drop foot to the right ankle prior to surgery. He may benefit from AFO to his RLE to facilitate ambulation. On exam, he's alert and oriented x3, pain is well controlled. He has in LLE 5/5 quadriceps, 4+/5 hamstring/knee flexion, 4+/5 plantar/dorsiflexion. RLE 4+/5 EHL, 4-/5 hip flexion, 3/5 knee extension. Sensibility is grossly intact in BLE. Will continue current medical management and therapy. Plan for placement to inpatient rehab tomorrow. Time Spent With Patient Critical Care time: I spent a total of [] minutes of critical care time on this patient's care today; this time is exclusive of procedural time.
[2022-03-29 11:29] VITALS: BP 134/65; PULSE 87; RESP 18; TEMP 36.6; O2SAT 98
[2022-03-29] MEDS: BISACODYL 10 MG SUPP PR (13:08)
--- NOTE | 2022-03-29 14:59 | PC.NURSE ---
Patient states that he has numbness from his r.side of waist down to his foot. He denies pain. Given a suppository for complaints of no bowel movement since Wednesday. Patient had a medium bowel movement in his bed, and some in the bed baker. He was still going more after taken off of baker so brief applied to patient. We will check on him and get him changed soon. He is able to move side to side and is helpful when repositioning. Bottom slightly red, cream applied to area's. Voices no complaints at this time. Pulse is present to both extremities. Dressing to mid back is cdi.
[2022-03-29 16:57] VITALS: PULSE 101; RESP 22; TEMP 36.6; O2SAT 96
[2022-03-29] MEDS: ENOXAPARIN 40 MG/0.4 ML SYRINGE SUBCUT (17:14)
--- NOTE | 2022-03-29 17:56 | P.PN_ITS ---
Subjective Subjective Interval history: ?yo male presently hospital day #3 and POD #3, admitted for? T11-12 bilateral laminectomy and facetecomies, T11-12 posterolateral fusion [id number] posterior non-segmental instrumentation for thoracic myelopathy sxs.? During surgery, he had a drop in EMG when placed in prone position at the start of surgery.? AFter surgery, he had decreased sensation to both legs as well as significant motor weakness.? He was found to have some partial paralysis.? He was placed on [facility] ds d/t MRI revealing spinal cord inflammation.? He has had improvement since surgery and now is able to wiggle his toes on the right side and move his RLE slightly.? He feels his LLE is normal. Plans are in place for admission to acute inpatient Rehab at discharge.? Pt's insurance requested a hospitalist consult, and I saw the patient yesterday. Delarosa catheter remains in place secondary to recurrent urinary retention. He reports he has not yet had a bowel movements. Exam Vital Signs (past 8 hours): - 03/29/22 11:29 03/29/22 16:57 Temperature 97.9 F 97.9 F Pulse Rate 87 101 H Respiratory Rate 18 22 Blood Pressure 134/65 Pulse Oximetry 98 96 Oxygen Delivery Method Room Air Oxygen Flow Rate 0 Narrative Exam Narrative: GEN: Very pleasant elderly male, Alert and oriented x 3, NAD HEENT:NC, Face symmetric CHEST: Respiratory excursions symmetric, CTAB CV: RRR, no M/R/G ABD: Soft, NT/ND, BT present in all 4 quadrants, no organomegaly or masses EXTR: warm, well perfused, no C/C/E SKIN: warm and dry, no rash NEURO: Alert and oriented x 3, he does have some mildly improved movement of his right lower extremity against gravity compared with yesterday Objective Labs Result Diagrams: 03/27/22 15:35 PFSH Medical History Asthma Graves' disease History of prosthetic unicompartmental arthroplasty of left knee (~1999) HTN (hypertension) Hyperthyroidism Precancerous lesion Sciatica Spinal stenosis Surgical History History of colon resection (~1969) History of total left hip replacement (~2000) Hx of sinus surgery (~2019) S/P lumbar spinal fusion (07/14/21) Social History household members: none Smoking Status: Never smoker alcohol intake: current Assessment & Plan Assessment & Plan narrative: 1. Postop spinal cord edema ongoing management by surgical team. He has been accepted to inpatient rehab at [facility] pending insurance authorization. 2. Urinary retention Continue Delarosa catheter for now. Await urine culture. He may neurogenic bladder given his spinal cord edema versus urinary retention related to constipation. Continue monitoring. 3. Constipation Discussed a suppository with him today and he is receptive. This has been ordered. Continue oral bowel medication regimen as well 4. Hypertension Blood pressures have been elevated at times. He has been off of his antihypertensive therapy per the attending physician to promote blood supply and blood flow. Resume when surgeon feels appropriate 5. Asthma Continue Advair Code status Full Prophylaxis Per surgery Disposition Inpatient rehab once insurance Auth obtain Time Spent With Patient Critical Care time: I spent a total of [] minutes of critical care time on this patient's care today; this time is exclusive of procedural time.
--- NOTE | 2022-03-29 17:57 | CM.DPC ---
DCP Continued: BOB spoke with JOSE at [facility] acute rehab and asked for CM to fax over clinical information. Cm Faxed requested documentation and he agreed to accept the patient once they get [employer] authorization which was started today. CM team will call Jose at [facility] tomorrow to check on authorization and get patient DC to acute rehab tomorrow. CM team will continue to follow to help assist with any needs.. CM team will also look for SNF placement tomorrow as well incase DC to Acute rehab not approved by [employer]. Nelida Becerril RNassistant store manager trainee
[2022-03-29 20:00] VITALS: BP 144/73; PULSE 83; RESP 14; TEMP 37.3; O2SAT 95
[2022-03-30 06:00] VITALS: BP 153/76; PULSE 77; RESP 16; TEMP 36.6; O2SAT 98
[2022-03-30 07:52] VITALS: PULSE 84; RESP 18; O2SAT 97
[2022-03-30] MEDS: ALBUTEROL 2.5 MG/3 ML NEB (ADULT) INH (07:52)
[2022-03-30] MEDS: BUDESONIDE 0.5 MG/2 ML NEB INH (07:52)
[2022-03-30 08:00] VITALS: BP 168/78; PULSE 79; RESP 15; TEMP 36.4; O2SAT 97
[2022-03-30] MEDS: ENOXAPARIN 40 MG/0.4 ML SYRINGE SUBCUT (10:26)
[2022-03-30] MEDS: FAMOTIDINE 20 MG TABLET PO ×2 (10:26→20:46)
[2022-03-30] MEDS: DEXAMETHASONE 10 MG/ML VIAL IV (10:26)
--- NOTE | 2022-03-30 10:42 | PC.NURSE ---
Patient gave himself a bed bath and washed his hair, he states that he feels much better. He has some weakness to his r.leg and has limited rang of motion at this time. He is unable to lift his leg up but has feeling to area.
--- NOTE | 2022-03-30 11:11 | OT.IP.TRT ---
Current Diagnoses Foot drop, right foot (03/25/22) Other spondylosis with myelopathy, thoracic region (03/25/22) Spinal stenosis, thoracic region (03/25/22) Surgery Performed Operation Date: 03/25/22 14:45 Actual Procedures p T11-12 laminectomy, fusion - Stephen Baker MD Occupational Therapy Treatment Note M2 OT-IP Current Condition Start: 03/26/22 17:20 Freq: Status: Active Protocol: Document 03/26/22 11:35 [facility] (Rec: 03/26/22 17:52 [facility] [id number]) Occupational Therapy Current Condition Current Condition Evaluation Date 03/26/22 Treatment Diagnosis S/p T11-12 TLIF Diagnosis Onset Date 03/25/22 Post Operative Precautions Lumbar Precautions Log Roll,No Twisting,Limit Bending,Lifting Restriction of 10 lbs,Gait Belt above Incisional Area M3 OT- IP Subjective and Pain Start: 03/26/22 17:20 Freq: Status: Active Protocol: Document 03/30/22 11:12 [facility] (Rec: 03/30/22 11:20 [facility] [id number]) OT- Subjective Occupational Therapy Visit Type Type Progress Note Visit Start Time 10:43 Visit Stop Time 11:11 Total Visit Minutes 28 Notes Pt agreeable to getting out of bed OT Pain Assessment Pain When Pain Assessed During Mobility Pain Present Pain Present Pain Reported Location Back Scale Used did not rate Pain Behaviors Facial Grimacing,Guarding, Wincing Management Techniques Distraction,Modification of Treatment,Re-positioning, Timing of Activity with Medications M4 OT- IP ADL's Start: 03/26/22 17:20 Freq: Status: Active Protocol: Document 03/30/22 11:12 [facility] (Rec: 03/30/22 11:20 [facility] [id number]) OT [id number] Comments OT Self-Feeding Comments not meal time OT ADL-Grooming Comments OT Grooming Comments Pt states he just performed ADLs seated in bed with nursing but was agreeable to washing hands at sink with IND . OT ADL-Oral Care Comments Oral Care Comments Pt states he just performed ADLs seated in bed with nursing OT ADL-Dressing General Eval Lower Body Dressing Ability Total Assistance Areas Needing Assistance Socks OT ADL-Toileting General Evaluation Toileting Ability Total Assistance Comments OT Toileting Comments pt with joni OT ADL-Bathing Comments OT Bathing Comments not performed M5 OT- IP IADL's Start: 03/26/22 17:20 Freq: Status: Active Protocol: Document 03/26/22 11:35 [facility] (Rec: 03/26/22 17:52 [facility] [id number]) OT-Instrumental Activities of Daily Living Home Safety Awareness Home Safety Comments Pt states that his son will stay with him as long as it is needed if going home. Medication Management Medication Management Comments Pt states able to do prior. Money Management Money Management Comments Pt states able to do prior. Meal Preparation Meal Preparation Comments Pt will need assist Cellular Biologist Cellular Biologist Comments Pt will need assist M6 OT- IP Functional Cognition Start: 03/26/22 17:20 Freq: Status: Active Protocol: Document 03/27/22 16:31 [facility] (Rec: 03/27/22 16:44 [facility] [id number]) Cognitive Factors Limiting Selfcare Function Cognitive Comments Cognitive Assessment Comments Pt intact to be able to follow directions. M7 OT- IP Mobility and Balance Start: 03/26/22 17:20 Freq: Status: Active Protocol: Document 03/30/22 11:12 [facility] (Rec: 03/30/22 11:20 [facility] [id number]) OT- Bed Mobility Assessment Rolling Type of Rolling Log Rolling,Roll to Right Level of Assistance Moderate Assistance,1 Person Assistance Supine to Sit Supine to Sit Assist Moderate Assistance,1 Person Assistance Scooting Scooting to Edge of Bed Standby Assistance OT-Transfer Assessment Transfers Transfer Ability Moderate Assistance,Maximum Assistance,1 Person Assistance Technique Transfer Destination Bed,Chair Transfer Technique Lateral Scoot Devices Transfer Assistive Devices Gait Belt,Sliding Board Comments Mobility Comments Pt needs assist with placing the sliding board and reminders not to hold it at its end (to avoid injury to fingers). Pt was able to perform scooting without physical assist but needed total assist to manage his RLE for balance purposes as well as all set up. Grossly mod to max a for sliding board transfer. OT- Gait Assessment Comments Gait Ability Comments Does not occur OT- Balance Assessment Sitting Balance and Reactions Static Sitting Balance Ability Good Dynamic Sitting Balance Ability Fair M8 OT- IP Objective Assessments Start: 03/26/22 17:20 Freq: Status: Active Protocol: Document 03/27/22 16:31 [facility] (Rec: 03/27/22 16:44 [facility] [id number]) OT-Muscle Tone Assessment Comments Muscle Tone Comments Increased tone for RLE. RLE tends to want to internally roll in. M9 OT- IP Assessment and Plan Start: 03/26/22 17:20 Freq: Status: Active Protocol: Document 03/30/22 11:12 [facility] (Rec: 03/30/22 11:20 [facility] [id number]) OT Summary Assessment and Plan Potential Rehabilitation Potential Good Analytic Complexity at Evaluation Moderate Summary OT Impairments Pain,Strength,Balance, Coordination,Sensation, Functional Mobility,Grooming, Dressing,Toileting,Bathing, Toilet Transfers,Shower Transfers,Activity Tolerance Progress Towards Goals Slow Progress due to Pain,Slow Progress due to Medical Issues Assessment Summary Pt very motivated to go to acute rehab and would be good to work on urine/bowel program , weight bearing through his feet to help work towards functional mobilty, increase his independence with ADL via standing or if having to be from a seated level pending how his function returns for his BLE. Pt is far from his baseline after his back surgery and now has significant BLE weakness and neurological symptoms. Today pt was able to perform sliding board transfer with mod/max assist. He has good upper body strength for the transfer but poor awareness of where his RLE is and how it impacts his balance. Pt is highly motivated to get better and is an ideal candidate for acute rehab. Goals Self-Feeding Goal Independent Grooming Goal Independent Dressing Goal Independent Toileting Goal Independent Bathing Goal Independent Toilet Transfer Goal Independent Shower Transfer Goal Independent Days to Meet Goals 50 Frequency of Treatment Frequency Of Treatment Once a Day Treatment Plan OT Treatment Plan ADL Training,Functional Mobility,Patient/Family Education,Discharge Planning Other Treatment Recommendations and Next Sliding board tranfer with MOD Treatment Focus A x1. Discharge Recommendations OT Discharge Recommendations Acute Rehab Transportation Needs at Discharge Wheelchair/Cabulance,Stretcher /Ambulance
--- NOTE | 2022-03-30 11:57 | PT.IPTN ---
Current Diagnoses Foot drop, right foot (03/25/22) Other spondylosis with myelopathy, thoracic region (03/25/22) Spinal stenosis, thoracic region (03/25/22) Surgery Performed Operation Date: 03/25/22 14:45 Actual Procedures p T11-12 laminectomy, fusion - Stephen Baker MD Physical Therapy Treatment Note M2 PT-IP Current Condition Start: 03/26/22 17:16 Freq: NEEDED Status: Active Protocol: Document 03/30/22 13:04 TS (Rec: 03/30/22 13:59 TS [id number]) Physical Therapy Current Condition Current Condition Evaluation Date 03/26/22 Treatment Diagnosis TLIF T11-12, right LE weakness and impaired mobility/gait Onset Date 03/25/22 M3 PT-IP Subjective Start: 03/26/22 17:16 Freq: NEEDED Status: Active Protocol: Document 03/30/22 13:04 TS (Rec: 03/30/22 13:59 TS [id number]) Subjective Physical Therapy Visit Type Type Treatment Note Visit Start Time 11:32 Visit Stop Time 11:57 Total Visit Minutes 25 Notes SPTA Humphrey lead treatment, ACCOUNTING TECHNICIAN Cara superivsed and provided assist support. Number of ACCOUNTING TECHNICIAN Visits 1 Physical Therapy Visit Comments Patient Comments Pt reports he is still having weakness in RLE and some loss of sensation. Patient Goals be able to go home. M4 PT-IP Mobility and Gait Start: 03/26/22 17:16 Freq: NEEDED Status: Active Protocol: Document 03/30/22 13:04 TS (Rec: 03/30/22 13:59 TS [id number]) PT-Transfer Assessment Sit to and From Stand Sit to and from Stand Maximum Assistance,2 Person Assistance,Use of Upper Extremities Comments Mobility Comments Pt found resting in wheel chair and agreeable to PT session. Pt instructed heel/ toe raises, glute sets, LAQ in sitting, demonstrated weakness in RLE. Pt was SBA for scooting up in wheel chair . Pt performed sit to stands x3 w/ FWW requiring blocking of knees to prevent buckling of LEs, heavy MaxA x2 with cues for handplacement on arms to chair to push , feet underneath, quad/glute facilitation and weight forward. 1st attempt with sit to stand he quickly buckled and required to sit back down, 2nd attempt maintained standing x30 secs, requiring cues to reach back for chair before sitting, 3rd attempt stood ~60 secs When standing pt demonstrated flexed posture , posterior lean and NBOS requiring cues to stand up straight and shift weight forward. When cued for WBOS pt did not have strength to move feet apart. Pt came back to sitting in wheel chair, call light in reach, SOCIAL SERVICES notified of status. Gait Assessment Comments Gait Comments Pt unable to ambulate at this time. Declined using w/c in hallway. PT-Balance Assessment Sitting Balance and Reactions Static Sitting Balance Ability Good Dynamic Sitting Balance Ability Fair Standing Balance and Reactions Static Standing Balance Ability Poor Dynamic Standing Balance Ability Poor Device Used FWW Comments Other Balance Tests/Deviations/Treatment Pt demonstrates good sitting : balance with UE support. Pt has poor static standing balance with buckling of knees , poor posture and a posterior lean. M5 PT-IP Objective Assessments Start: 03/26/22 17:16 Freq: NEEDED Status: Active Protocol: Document 03/26/22 12:05 [facility] (Rec: 03/26/22 17:56 [facility] [id number]) Orientation Orientation/Cognition Level of Alertness Alert Orientation Name,Age,Birthday,Month,Date, Year,Day of Week,Place, Situation Language Function Ability No Deficits Noted Safety Awareness Understands Safety Issues Memory Description No Deficits Noted Gross Range of Motion Upper Extremity ROM Assessment Within Functional Limits Lower Extremity ROM Assessment Right Impaired Impairments increased extensor tone throughout right LE, DF to neutral only passively Strength Upper Extremity Strength Assessment Within Functional Limits Lower Extremity Strength Assessment Bilaterally Impaired Hip flexion left 4/5, right 2-/5 Knee extension left 4+/5, right 2+/ 5 Ankle DF left 4+/5, left 0/5; PF left 4/5, right 3+/5 Comments Strength Comments pt reports increased right LE weakness since this back surgery Coordination Assessment Gross Coordination Gross Coordination Impaired Assessment Coordination Comments impairment in association with right LE weakness, UE's are WFL Sensation Assessment Sensation Gross Sensation Right LE Impaired,Left LE Impaired Light Touch Impaired Proprioception (Position) Impaired Sensation Description Numbness Comments Sensation Comments pt unable to feel the floor with bilateral feet, pt unable to feel that one foot was on top of the other foot, he describes numbness throughout the right LE Muscle Tone Muscle Tone WNL No Comments Muscle Tone Comments increased extensor tone right LE throughout, can assist pt to move through it M6 PT-IP Treatment Start: 03/26/22 17:16 Freq: NEEDED Status: Active Protocol: Document 03/30/22 13:04 TS (Rec: 03/30/22 13:59 TS [id number]) Physical Therapy Treatment Exercises Exercises Ankle Pumps,Quad Sets,Heel Slides,Seated Knee Flexion/ Extension Education Education Provided Precautions,Safety M7 PT-IP Assessment and Plan Start: 03/26/22 17:16 Freq: NEEDED Status: Active Protocol: Document 03/30/22 13:04 TS (Rec: 03/30/22 13:59 TS [id number]) PT Summary Assessment and Plan Potential Rehabilitation Potential Fair Status of Condition at Evaluation Unstable Summary Impairments Pain,ROM,Strength,Balance, Sensation,Tone,Bed Mobility, Transfers,Gait,Activity Tolerance Progress Towards Goals Slow Progress due to Medical Issues,Slow Progress due to Activity Tolerance Assessment Summary Wyatt continues to be MaxA x2 for standing, MaxA x2 to sitting, SBA for scooting. He continues to participate in strenghtening exercises but demonstrates poor carryover. RLE still demonstrates greater weakness than LLE and has loss of sensation in feet (can not feel feet on ground). PT is currently recommending acute rehab to increase strength in LEs, functional mobility and transfers. He is agreeable to acute rehab and is motivated to get better to return home. Goals Bed Mobility Goal Contact Guard Assistance, Minimal Assistance Transfer Goal Moderate Assistance,Front Wheeled Walker Gait Goal Moderate Assistance,Maximal Assistance Gait Distance 10 Other Goals Squat pivot or slide board transfers bed-chair with CG/ min asist Days to Meet Goals 7 Frequency of Treatment Frequency Of Treatment Once a Day Treatment Plan Physical Therapy Treatment Plan Bed Mobility Training,Transfer Training,Gait Training, Therapeutic Exercise,Balance Retraining,Post Op Education, Discharge Planning, Neuromuscular Re-ed Other Recommendations and Next Treatment Next treatment use power sit- Focus stand to increase standing time, scoot/slide transfers for bedside commode and wheelchair Precautions Lumbar Precautions Log Roll,No Twisting,Limit Bending,Lifting Restriction of 10 lbs,Gait Belt above Incisional Area Other Precautions high fall risk due to LE weakness and impaired sensation Recommendations To Nursing Amount of Assist Needed 2 Person Assist,Mechanical Lift Discharge Recommendations PT Discharge Recommendations SNF Rehab,Acute Rehab Transportation Needs at Discharge Wheelchair/Cabulance,Stretcher /Ambulance
--- NOTE | 2022-03-30 13:13 | PM.DS.1 ---
History of Present Illness History of Present Illness Date Patient Seen: 03/30/22 Time Patient Seen: 07:40 Chief complaint: s/p thoracic fusion; h/o R foot drop, myelopathy Narrative: Patient is complaining of mild back pain. He continues to have somewhat decreased sensation in bilateral lower extremities. He notes his weakness has stayed about the same in last 24 hours. The main concern was his significant decrease in neurovascular status during the initial flip to prone during initial surgical positioning.? Please see plan for further details.? He is currently working with physical therapy and occupational therapy.? He notes that his baseline sensation is returning and right feels comparable to left.? He is still complaining of significant right-sided lower extremity weakness, which is somewhat consistent with his baseline prior to surgery.? He is currently on IV steroids due to his neurologic changes. Discharge Providers Provider Date of admission: 03/25/22 12:35 Discharge Date: 03/30/22 Primary care physician: Harjit Sheriff MD Consults: 03/25/22 18:59 Consult to Occupational Therapy Evaluate & Treat Comment: Physician Instructions: Evaluate and treat Consult to Physical Therapy Evaluate & Treat Comment: Physician Instructions: Evaluate and Treat 03/25/22 20:30 Consult to Occupational Therapy Evaluate & Treat Comment: Physician Instructions: Evaluate and treat Consult to Physical Therapy Evaluate & Treat Comment: Physician Instructions: Evaluate and Treat 03/28/22 09:26 Consult to Hospitalist Service Routine Comment: Consulting Provider: Addison Lambert Reason for consultation: Medical evaluation prior to transfer to inpatient rehab Has provider been notified: Yes Discharge provider: Nieves Mcrae PA-C Summary Hospital Course Discharge Diagnosis: -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 T11-12 bilateral laminectomy and facetecomies 2. T11-12 posterolateral fusion 3. T11-12 posterior non-segmental instrumentation 4. Utilization of microsurgical technique and operating microscope Same procedure as scheduled: Yes Indications: Patient has been having progressively worsening symptoms consistent with myelopathy.? Thoracic MRI shows severe spinal stenosis at T11-12 with cord edema. Patient failed multiple conservative management with worsening pain weakness and worsening balance consistent with myelopathy correlating to his MRI findings.? Patient has been having difficulty performing activity of daily living.? After discussing risks benefits of treatment options, patient elected proceed with surgery. Surgeon: Stephen Baker Control Systems Developer: Chris Hope Click Yes if Unassisted: No Anesthesia Type: General Operative Notes Closure Type: primary Specimen(s): none sent Prosthetic devices, grafts, tissues, transplants, or devices: Globus revolve screws Estimated Blood Loss (mL): 20 Blood products transfused: none -Patient had significant drop in baseline EMG and motor evoked potential from neuromonitoring after patient was placed into prone position prior to starting surgery. -Post surgery, patient had slight recovery in his left sided neuromonitoring signals. Patient had significant post surgery physical exam with decreased sensation to both legs and significant motor weakness to both legs in multiple muscle groups; he was examined in recovery room post anesthesia prior to transfer to his room on the floor. This was expected and consistent with his intraoperative findings. -His BP was kept higher intentionally in order to improving perfusion to his neuro structures and facilitate recovery. -He received IV steroids to decrease spinal cord inflammation, which was present on his MRI as hyerintense signal indicating spinal cord edema. -Plan to continue current medical management, take sedating medication only as necessary in order to keep his mean arterial pressure higher than 80 to improve tissue perfusion. -continue with physical therapy/occupational therapy.? No bending, lifting, twisting x6 weeks. -he will need intense rehab during his recovery, therefore he will be transferred to an acute care rehab facility. Status at Discharge Cognitive/behavioral status at discharge: at baseline, oriented Functional status at discharge: uses cane/walker Overall status at discharge: patient is progressing back to baseline Exam Vital Signs (past 8 hours): - 03/30/22 06:00 03/30/22 07:52 03/30/22 08:00 Temperature 97.9 F 97.6 F Pulse Rate 77 84 79 Respiratory Rate 16 18 15 Blood Pressure 153/76 H 168/78 H Pulse Oximetry 98 97 97 Oxygen Delivery Method Room Air Oxygen Flow Rate 0 Oxygen Delivery Method Room Air Oxygen Flow Rate 0 Narrative Exam Narrative: Pleasant 86-year-old male, resting comfortably in bed, no acute distress. Bilateral lower extremity: Sensation is grossly intact throughout all dermatomes bilaterally. Strength LLE: Quad is 5/5, hamstring, 4+ out of 5, df/PF 4- out of 5, EHL 5/5. Strength RLE: Quad 4/5, hamstring 3/5, plantar flexion 3/5, EHL 4+ out of 5. Objective Labs Result Diagrams: 03/27/22 15:35 [facility] Medical History Asthma Graves' disease History of prosthetic unicompartmental arthroplasty of left knee (~1999) HTN (hypertension) Hyperthyroidism Precancerous lesion Sciatica Spinal stenosis Surgical History History of colon resection (~1969) History of total left hip replacement (~1999) Hx of sinus surgery (~2018) S/P lumbar spinal fusion (07/14/21) Social History household members: none Smoking Status: Never smoker alcohol intake: current Discharge Assessment & Plan Assessment and Plan Assessment: -POD#5 s/p T11-12 laminectomy and posterior fusion with instrumentation -h/o myelopathy with Postop spinal cord edema -Urinary retention -Hypertension and Asthma, being managed by hospitalist team Plan of Treatment: -Patient had significant drop in baseline EMG and motor evoked potential from neuromonitoring after patient was placed into prone position prior to starting surgery. -Post surgery, patient had slight recovery in his left sided neuromonitoring signals. Patient had significant post surgery physical exam with decreased sensation to both legs and significant motor weakness to both legs in multiple muscle groups; he was examined in recovery room post anesthesia prior to transfer to his room on the floor. This was expected and consistent with his intraoperative findings. -His BP was kept higher intentionally in order to improving perfusion to his neuro structures and facilitate recovery. OK to resume home BP meds now. -He is receiving IV steroids to decrease spinal cord inflammation, which was present on his MRI as hyerintense signal indicating spinal cord edema. Upon discharge, we will transition to a Medrol Dosepak. -continue with physical therapy/occupational therapy.? No bending, lifting, twisting x6 weeks. -discontinue Lovenox upon discharge and change to aspirin 81 mg b.i.d. x6 weeks for DVT prophylaxis -Will continue monitor and assess his neuro status, which is slightly improved from postop day 1.? He is still having significant limitations with right lower extremity motor functions. -there is significant concern about him being safe upon discharge.? Physical therapy and occupational therapy are recommending an acute rehab facility for more intensive physical therapy, and I concur with this plan. -Urinary retention: discontinue catheter now.? Urine culture showed no growth.? He may have neurogenic bladder given his spinal cord edema versus urinary retention related to constipation.? Continue monitoring, he may need a new quinones catheter if unable to void. -Hypertension :ok to resume normal BP meds now -Asthma :Continue Advair -disposition, acute rehab today or tomorrow, if authorized in bed is available.? Discharge Plan Discharge Plan Patient Disposition: [facility] Other facility: Acute Care Rehab facility Discharge orders & Medications Prescriptions: New docusate sodium 100 mg Capsule 100 mg PO BID PRN (Reason: constipation) Qty: 30 0RF famotidine [Pepcid AC] 20 mg Tablet 20 mg PO BID PRN (Reason: dyspepsia) Qty: 30 0RF hydroxyzine pamoate 25 mg Capsule 25 mg PO Q4HR PRN (Reason: Muscle spasm/pain/nausea) Qty: 30 0RF oxycodone 5 mg Tablet 5 mg PO Q3HR PRN (Reason: Pain, Moderate (4-6)) Qty: 20 0RF aspirin 81 mg tablet,delayed release (DR/EC) 81 mg PO BID 42 Days Qty: 84 0RF Rx Instructions: Prevent blood clots methylprednisolone [Medrol (Monico)] 4 mg tablets,dose pack See Rx Instructions .ROUTE .COMPLEX Qty: 21 0RF Rx Instructions: orally per package directions once discharged from [facility] Continued metoprolol succinate 100 mg Tablet Extended Release 24 Hr 100 mg PO DAILY amlodipine 5 mg Tablet 5 mg PO DAILY fluticasone propion-salmeterol [Advair Diskus] 500-50 mcg/dose Blister With Device 1 inh INHALATION QAM lisinopril 40 mg Tablet 40 mg PO DAILY acetaminophen 325 mg Tablet 650 mg PO Q6HR PRN (Reason: Pain, Mild (1-3)) Qty: 240 2RF Follow up/Referrals: Harjit Sheriff MD [Primary Care Provider] - Stephen Baker MD [Physician] - (10-14 days for postoperative visit) Discharge Health Status Multidrug resistant organism: No MDRO Diet/Activity/Treatments Diet: Diet as Tolerated Other treatments: -Patient had significant drop in baseline EMG and motor evoked potential from neuromonitoring after patient was placed into prone position prior to starting surgery. -Post surgery, patient had slight recovery in his left sided neuromonitoring signals. Patient had significant post surgery physical exam with decreased sensation to both legs and significant motor weakness to both legs in multiple muscle groups; he was examined in recovery room post anesthesia prior to transfer to his room on the floor. This was expected and consistent with his intraoperative findings. -His BP was kept higher intentionally in order to improving perfusion to his neuro structures and facilitate recovery. OK to resume normal BP meds now. -He is receiving IV steroids to decrease spinal cord inflammation, which was present on his MRI as hyerintense signal indicating spinal cord edema. Upon discharge, we will transition to a Medrol Dosepak. -continue with physical therapy/occupational therapy.? No bending, lifting, twisting x6 weeks. -Will continue monitor and assess his neuro status, which is slightly improved from postop day 1.? He is still having significant limitations with right lower extremity motor functions. -Urinary retention: discontinue catheter now.? Urine culture showed no growth.? He may have neurogenic bladder given his spinal cord edema versus urinary retention related to constipation.? Continue monitoring, he may need a new quinones catheter if unable to void. Dressing/Wound care: -Keep dressing in place until postoperative follow-up office visit. -Okay to shower. Keep wound out of direct water stream. Can use PressNSeal plastic wrap to protect from shower stream. No soaking or submerging until all the scabs fall off (approximately 6 weeks). -Please call the office if dressing becomes wet, soiled, or saturated. Activities: -Limit bending, lifting, twisting x6 weeks. No deep bending (more than 90 degrees) or twisting at the waist. No lifting > 20 pounds. -Walk frequently. -Weight-bearing as tolerated. Use front wheeled walker, and progress to cane when safe. -Continue with home exercises as directed by your physical therapist. -Ice your incision as needed for pain/inflammation/swelling. Protect your skin with a folded pillowcase. -Incentive Spirometer (breathing device from hospital): 5-10xs every hour while awake for the first 1-2 weeks. Follow-up: -Follow-up with your surgeon or PA in the office in 10-14 days after surgery. -Follow-up with your surgeon 6 weeks postoperatively. Call the office if you have chest pain, shortness of breath, significant swelling that will not resolve with elevating, fever over 101?, significantly worsening pain, or are concerned you might need to go to the Emergency Room. [facility]: [phone] Skin/Wound/Dressing Care Report to your healthcare provider any signs of infection, such as:: chills, fever, night sweats, unusual drainage and unusual redness [facility] Reason for rehabilitation: Post-operative therapy Rehab type: Physical therapy and Occupational therapy Visit Report/Discharge Packet Instructions: DI for Laminectomy Stand Alone Forms: Surgery Discharge Discharge Data Primary Care Provider: Harjit Sheriff
--- NOTE | 2022-03-30 15:05 | PT.IPTN ---
Current Diagnoses Foot drop, right foot (03/25/22) Other spondylosis with myelopathy, thoracic region (03/25/22) Spinal stenosis, thoracic region (03/25/22) Surgery Performed Operation Date: 03/25/22 14:45 Actual Procedures p T11-12 laminectomy, fusion - Stephen Baker MD Physical Therapy Treatment Note M2 PT-IP Current Condition Start: 03/26/22 17:16 Freq: NEEDED Status: Active Protocol: Document 03/30/22 13:04 TS (Rec: 03/30/22 13:59 TS [id number]) Physical Therapy Current Condition Current Condition Evaluation Date 03/26/22 Treatment Diagnosis TLIF T11-12, right LE weakness and impaired mobility/gait Onset Date 03/25/22 M3 PT-IP Subjective Start: 03/26/22 17:16 Freq: NEEDED Status: Active Protocol: Document 03/30/22 13:04 TS (Rec: 03/30/22 13:59 TS [id number]) Subjective Physical Therapy Visit Type Type Treatment Note Visit Start Time 11:32 Visit Stop Time 11:57 Total Visit Minutes 25 Notes SPTA Humphrey lead treatment, SCRAP WHEELER Cara superivsed and provided assist support. Split treatment, nurse required assist and education on proper use of slideboard, pt refused use of jackie. 11: 32-11:57, 14:50-15:05. Number of SCRAP WHEELER Visits 1 Physical Therapy Visit Comments Patient Comments Pt reports he is still having weakness in RLE and some loss of sensation. Patient Goals be able to go home. M4 PT-IP Mobility and Gait Start: 03/26/22 17:16 Freq: NEEDED Status: Active Protocol: Document 03/30/22 13:04 TS (Rec: 03/30/22 13:59 TS [id number]) PT-Transfer Assessment Sit to and From Stand Sit to and from Stand Maximum Assistance,2 Person Assistance,Use of Upper Extremities Comments Mobility Comments Pt found resting in wheel chair and agreeable to PT session. Pt instructed heel/ toe raises, glute sets, LAQ in sitting, demonstrated weakness in RLE. Pt was SBA for scooting up in wheel chair . Pt performed sit to stands x3 w/ FWW requiring blocking of knees to prevent buckling of LEs, heavy MaxA x2 with cues for handplacement on arms to chair to push , feet underneath, quad/glute facilitation and weight forward. 1st attempt with sit to stand he quickly buckled and required to sit back down, 2nd attempt maintained standing x30 secs, requiring cues to reach back for chair before sitting, 3rd attempt stood ~60 secs When standing pt demonstrated flexed posture , posterior lean and NBOS requiring cues to stand up straight and shift weight forward. When cued for WBOS pt did not have strength to move feet apart. Pt came back to sitting in wheel chair, call light in reach, FIELD INSURANCE SALES MANAGER notified of status. Gait Assessment Comments Gait Comments Pt unable to ambulate at this time. Declined using w/c in hallway. PT-Balance Assessment Sitting Balance and Reactions Static Sitting Balance Ability Good Dynamic Sitting Balance Ability Fair Standing Balance and Reactions Static Standing Balance Ability Poor Dynamic Standing Balance Ability Poor Device Used FWW Comments Other Balance Tests/Deviations/Treatment Pt demonstrates good sitting : balance with UE support. Pt has poor static standing balance with buckling of knees , poor posture and a posterior lean. M5 PT-IP Objective Assessments Start: 03/26/22 17:16 Freq: NEEDED Status: Active Protocol: Document 03/26/22 12:05 [facility] (Rec: 03/26/22 17:56 [facility] [id number]) Orientation Orientation/Cognition Level of Alertness Alert Orientation Name,Age,Birthday,Month,Date, Year,Day of Week,Place, Situation Language Function Ability No Deficits Noted Safety Awareness Understands Safety Issues Memory Description No Deficits Noted Gross Range of Motion Upper Extremity ROM Assessment Within Functional Limits Lower Extremity ROM Assessment Right Impaired Impairments increased extensor tone throughout right LE, DF to neutral only passively Strength Upper Extremity Strength Assessment Within Functional Limits Lower Extremity Strength Assessment Bilaterally Impaired Hip flexion left 4/5, right 2-/5 Knee extension left 4+/5, right 2+/ 5 Ankle DF left 4+/5, left 0/5; PF left 4/5, right 3+/5 Comments Strength Comments pt reports increased right LE weakness since this back surgery Coordination Assessment Gross Coordination Gross Coordination Impaired Assessment Coordination Comments impairment in association with right LE weakness, UE's are WFL Sensation Assessment Sensation Gross Sensation Right LE Impaired,Left LE Impaired Light Touch Impaired Proprioception (Position) Impaired Sensation Description Numbness Comments Sensation Comments pt unable to feel the floor with bilateral feet, pt unable to feel that one foot was on top of the other foot, he describes numbness throughout the right LE Muscle Tone Muscle Tone WNL No Comments Muscle Tone Comments increased extensor tone right LE throughout, can assist pt to move through it M6 PT-IP Treatment Start: 03/26/22 17:16 Freq: NEEDED Status: Active Protocol: Document 03/30/22 13:04 TS (Rec: 03/30/22 13:59 TS [id number]) Physical Therapy Treatment Exercises Exercises Ankle Pumps,Quad Sets,Heel Slides,Seated Knee Flexion/ Extension Education Education Provided Precautions,Safety M7 PT-IP Assessment and Plan Start: 03/26/22 17:16 Freq: NEEDED Status: Active Protocol: Document 03/30/22 13:04 TS (Rec: 03/30/22 13:59 TS [id number]) PT Summary Assessment and Plan Potential Rehabilitation Potential Fair Status of Condition at Evaluation Unstable Summary Impairments Pain,ROM,Strength,Balance, Sensation,Tone,Bed Mobility, Transfers,Gait,Activity Tolerance Progress Towards Goals Slow Progress due to Medical Issues,Slow Progress due to Activity Tolerance Assessment Summary Wyatt continues to be MaxA x2 for standing, MaxA x2 to sitting, SBA for scooting. He continues to participate in strenghtening exercises but demonstrates poor carryover. RLE still demonstrates greater weakness than LLE and has loss of sensation in feet (can not feel feet on ground). Performed split treatment with nursing that required education and completion of slideboard transfer for pt back to bed from w/c. PT is currently recommending acute rehab to increase strength in LEs, functional mobility and transfers. He is agreeable to acute rehab and is motivated to get better to return home. Goals Bed Mobility Goal Contact Guard Assistance, Minimal Assistance Transfer Goal Moderate Assistance,Front Wheeled Walker Gait Goal Moderate Assistance,Maximal Assistance Gait Distance 10 Other Goals Squat pivot or slide board transfers bed-chair with CG/ min asist Days to Meet Goals 7 Frequency of Treatment Frequency Of Treatment Once a Day Treatment Plan Physical Therapy Treatment Plan Bed Mobility Training,Transfer Training,Gait Training, Therapeutic Exercise,Balance Retraining,Post Op Education, Discharge Planning, Neuromuscular Re-ed Other Recommendations and Next Treatment Next treatment use power sit- Focus stand to increase standing time, scoot/slide transfers for bedside commode and wheelchair Precautions Lumbar Precautions Log Roll,No Twisting,Limit Bending,Lifting Restriction of 10 lbs,Gait Belt above Incisional Area Other Precautions high fall risk due to LE weakness and impaired sensation Recommendations To Nursing Amount of Assist Needed 2 Person Assist,Mechanical Lift Discharge Recommendations PT Discharge Recommendations SNF Rehab,Acute Rehab Transportation Needs at Discharge Wheelchair/Cabulance,Stretcher /Ambulance
--- NOTE | 2022-03-30 15:24 | CM.DPC ---
DCP Note continued COURT ORDERLY receives call from Regine at [facility] in [facility], it is reported that they need updated PT/OT notes. COURT ORDERLY faxes updated notes. COURT ORDERLY returns call and it is reported that she is still awaiting [employer] auth for patient and it will likely result tomorrow. COURT ORDERLY and DCP TESSY Krause enter room to meet with patient and discuss the process of waiting for insurance authorization and discuss identifying a plan B for patient. COURT ORDERLY and DCP discuss SNF rehab options and patient endorses preference for any SNF rehab with exception of [facility]. Lili sends referrals to [facility], [facility], [facility] and [facility]. Plan: Awaiting [employer] auth for [facility] acute rehab vs. SNF rehab placement. COURT ORDERLY to f/u with [facility] tomorrow. MARLENY VoraSW
[2022-03-30 16:00] VITALS: BP 145/71; PULSE 78; RESP 15; TEMP 36.4; O2SAT 97
[2022-03-30 20:15] VITALS: BP 116/60; PULSE 82; RESP 18; TEMP 36.3; O2SAT 96
[2022-03-30] MEDS: SODIUM CHLORIDE 0.9% FLUSH 10 ML IV (20:47)
[2022-03-31 04:41] VITALS: BP 144/70; PULSE 72; RESP 18; TEMP 36.5; O2SAT 99
--- NOTE | 2022-03-31 08:04 | PT.IPTN ---
Current Diagnoses Foot drop, right foot (03/25/22) Other spondylosis with myelopathy, thoracic region (03/25/22) Spinal stenosis, thoracic region (03/25/22) Surgery Performed Operation Date: 03/25/22 14:45 Actual Procedures p T11-12 laminectomy, fusion - Stephen Baker MD Physical Therapy Treatment Note M2 PT-IP Current Condition Start: 03/26/22 17:16 Freq: NEEDED Status: Active Protocol: Document 03/31/22 07:45 SP (Rec: 03/31/22 10:33 SP [id number]) Physical Therapy Current Condition Current Condition Evaluation Date 03/26/22 Treatment Diagnosis TLIF T11-12, right LE weakness and impaired mobility/gait Onset Date 03/25/22 M3 PT-IP Subjective Start: 03/26/22 17:16 Freq: NEEDED Status: Active Protocol: Document 03/31/22 07:45 SP (Rec: 03/31/22 10:33 SP [id number]) Subjective Physical Therapy Visit Type Type Treatment Note Visit Start Time 07:45 Visit Stop Time 08:04 Total Visit Minutes 19 Notes HUGO Yin provided 2nd person assist during transfers while under direct supervision and guidence of PLUMBING MANAGER Cara. Number of PLUMBING MANAGER Visits 2 Physical Therapy Visit Comments Patient Comments Pt agreeable to working with PT, including use of sit to stander for transfers. Patient Goals going to SNF to get stronger before returning home M4 PT-IP Mobility and Gait Start: 03/26/22 17:16 Freq: NEEDED Status: Active Protocol: Document 03/31/22 07:45 SP (Rec: 03/31/22 10:33 SP [id number]) PT-Bed Mobility Assessment Rolling Type of Rolling Log Rolling,Roll to Right Level of Assist Contact Guard Assistance, Minimal Assistance,1 Person Assistance Supine to Sit Supine to Sit Moderate Assistance,1 Person Assistance,Head of Bed Elevated,Bedrails Sit to Supine Sit to Supine Maximum Assistance Scooting Scooting to Edge of Bed Contact Guard Assistance PT-Transfer Assessment Sit to and From Stand Sit to and from Stand 2 Person Assistance,Use of Upper Extremities Equipment Transfer Assistive Device Mechanical Lift Transfers Transfer Destination Wheelchair Transfer Ability Level of Assist 2 Person Assistance,Use of Upper Extremities Comments Mobility Comments Pt just waking up when arrived . Pt unable to lift RLE to remove pillow under. He required Max A x1 w/ transfer pad to roll R and L to assist brief change small loose BM ( pt unknown soiled brief), R>L support for positioning with cues pt use bed rails. supine> sit Mod- Max A support right trunk and R>LLE support to EOB , scoot SBA with BUEs. Pt required Min A for LLE, Max A for RLE hip/knee flexion to place LEs on sit/stander foot plate while needing 2nd person CGA- Min A for trunk support due to retro LOB. Trialed sit to stander for increase support quad/ glut facilitation with cues for UE support on lever arms, max cues for quad and glut facilitation to support self up and maintain standing. Pt tires quickly requires 2nd person from behind Mod A from behind to maintain pelvis underneath while other person controls mechanical sit<> Stander. Pt able to scoot fully back in w/c after assist for R>LLE positioned on foot plates. PLUMBING MANAGER provided waffle cushion under pelvis for skin integrity support with good pt feedback very helpful. Pt had call light and all needs in reach with chair alarm donned for safety, is a fall risk. Gait Assessment Comments Gait Comments Pt unable to ambulate at this time. PT-Balance Assessment Sitting Balance and Reactions Static Sitting Balance Ability Good Dynamic Sitting Balance Ability Fair Standing Balance and Reactions Static Standing Balance Ability Poor Dynamic Standing Balance Ability Poor Device Used sit to stander Comments Other Balance Tests/Deviations/Treatment Pt demonstrates fair sitting : balance, LOB retro when assisting BLEs onto sit to stander foot plate. M5 PT-IP Objective Assessments Start: 03/26/22 17:16 Freq: NEEDED Status: Active Protocol: Document 03/26/22 12:05 [facility] (Rec: 03/26/22 17:56 [facility] [id number]) Orientation Orientation/Cognition Level of Alertness Alert Orientation Name,Age,Birthday,Month,Date, Year,Day of Week,Place, Situation Language Function Ability No Deficits Noted Safety Awareness Understands Safety Issues Memory Description No Deficits Noted Gross Range of Motion Upper Extremity ROM Assessment Within Functional Limits Lower Extremity ROM Assessment Right Impaired Impairments increased extensor tone throughout right LE, DF to neutral only passively Strength Upper Extremity Strength Assessment Within Functional Limits Lower Extremity Strength Assessment Bilaterally Impaired Hip flexion left 4/5, right 2-/5 Knee extension left 4+/5, right 2+/ 5 Ankle DF left 4+/5, left 0/5; PF left 4/5, right 3+/5 Comments Strength Comments pt reports increased right LE weakness since this back surgery Coordination Assessment Gross Coordination Gross Coordination Impaired Assessment Coordination Comments impairment in association with right LE weakness, UE's are WFL Sensation Assessment Sensation Gross Sensation Right LE Impaired,Left LE Impaired Light Touch Impaired Proprioception (Position) Impaired Sensation Description Numbness Comments Sensation Comments pt unable to feel the floor with bilateral feet, pt unable to feel that one foot was on top of the other foot, he describes numbness throughout the right LE Muscle Tone Muscle Tone WNL No Comments Muscle Tone Comments increased extensor tone right LE throughout, can assist pt to move through it M6 PT-IP Treatment Start: 03/26/22 17:16 Freq: NEEDED Status: Active Protocol: Document 03/31/22 07:45 SP (Rec: 03/31/22 10:33 SP [id number]) Physical Therapy Treatment Education Education Provided Precautions,Safety M7 PT-IP Assessment and Plan Start: 03/26/22 17:16 Freq: NEEDED Status: Active Protocol: Document 03/31/22 07:45 SP (Rec: 03/31/22 10:33 SP [id number]) PT Summary Assessment and Plan Potential Rehabilitation Potential Fair Status of Condition at Evaluation Stable Summary Impairments Pain,ROM,Strength,Balance, Sensation,Tone,Bed Mobility, Transfers,Gait,Activity Tolerance Progress Towards Goals Slow Progress due to Medical Issues,Slow Progress due to Activity Tolerance Assessment Summary Pt continues to have decreased sensation and strength worse on R than L and no sensation of his bowels, that didn't have prior to surgery, at times does not know where LEs are postioned on top each other. Max A for bed mob, Max A x2 for skilled slide board/ sit to stander for transfers. Recommending [facility] for nursing . Pt very motivated to improve functional mobility and a good candidate for acute rehab to get better to return home. Goals Bed Mobility Goal Contact Guard Assistance, Minimal Assistance Transfer Goal Moderate Assistance,Front Wheeled Walker Gait Goal Moderate Assistance,Maximal Assistance Gait Distance 10 Other Goals Squat pivot or slide board transfers bed-chair with CG/ min asist Days to Meet Goals 7 Frequency of Treatment Frequency Of Treatment Once a Day Treatment Plan Physical Therapy Treatment Plan Bed Mobility Training,Transfer Training,Gait Training, Therapeutic Exercise,Balance Retraining,Post Op Education, Discharge Planning, Neuromuscular Re-ed Other Recommendations and Next Treatment Continue sit to stander, slide Focus board, increase static standing with max A x2 w/ FWW support at anterior knees. Precautions Lumbar Precautions Log Roll,No Twisting,Limit Bending,Lifting Restriction of 10 lbs,Gait Belt above Incisional Area Other Precautions high fall risk due to LE weakness and impaired sensation Recommendations To Nursing Amount of Assist Needed Mechanical Lift Discharge Recommendations PT Discharge Recommendations SNF Rehab,Acute Rehab Other Discharge Recommendations he is a good candidate for acute rehab with good activity tolerance Transportation Needs at Discharge Wheelchair/Cabulance,Stretcher /Ambulance
[2022-03-31 08:48] VITALS: BP 144/70; PULSE 72
[2022-03-31] MEDS: hydrOXYzine pamoate 25 MG CAPSULE PO (08:48)
[2022-03-31] MEDS: METOPROLOL ER 50 MG TABLET 100 MG PO (08:48)
[2022-03-31 08:49] VITALS: BP 144/70; PULSE 72
[2022-03-31] MEDS: lisinopriL 20 MG TABLET 40 MG PO (08:49)
[2022-03-31] MEDS: DEXAMETHASONE 10 MG/ML VIAL IV (08:49)
[2022-03-31] MEDS: ENOXAPARIN 40 MG/0.4 ML SYRINGE SUBCUT (08:49)
[2022-03-31] MEDS: FAMOTIDINE 20 MG TABLET PO ×2 (08:50→21:56)
[2022-03-31] MEDS: AMLODIPINE 5 MG TABLET PO (08:50)
[2022-03-31] MEDS: SODIUM CHLORIDE 0.9% FLUSH 10 ML IV ×2 (08:55→21:56)
--- NOTE | 2022-03-31 09:01 | DIET.CONS2 ---
Dietary Inpatient Consultation Note Admission Date: 03/25/2022 12:35 RD screened pt for LOS d5. Pt with excellent POs past 2d awaiting insurance auth for acute rehab for extensive back surgery. No nutrition needs identified at this time. Diet: 03/25/22 Dinner General (Regular) Diet Diet Modifications: Nutrition Percent Meal Consumed 100% 03/30/22 18:38 Percent Meal Consumed 100% 03/30/22 15:44 Percent Meal Consumed 100% 03/29/22 19:16 Percent Meal Consumed 100% 03/29/22 14:27 Percent Meal Consumed 25% 03/29/22 10:05 Electronically Signed by: Cecy Ramirez 03/31/22 09:01 Clinical Dietitian [address] [address]
[2022-03-31 12:45] VITALS: BP 144/63; PULSE 72; RESP 16; TEMP 36.2; O2SAT 100
--- NOTE | 2022-03-31 14:59 | CM.DPC ---
Addendum entered by Nelida Becerril R.N. 03/31/22 16:51: DCP Continued: called [facility] again to check on authorization for acute rehab for this patient. Cm was told by [facility] advertising representative that the patient was approved for [facility] acute rehab at 445pm 03/31/22. Authorization number is [id number], and reference number is [id number]. Cm called [facility] acute rehab to get transport set up however they were not answering CM left Voice mail with detailed message explaining we received authorization and would like to set up a DC time and get BLS transport set up for either tonight or tomorrow morning. CM did not hear back from [facility] and it is currently end of CM shift. CM team will work with [facility] tomorrow to get patient DC to there facility and get BLS transport set up. CM team will follow to assist with smooth DC to Acute rehab. patient updated and in agreement with DC plan. Nelida Becerril RNmanager market intelligence Original Note: DCP Note Continued PUMP INSTALLER calls [facility] Acute SNF rehab throughout the day, it is reported that they continue to wait for [employer] auth. PUMP INSTALLER and JABIERP TESSY Krause call [employer] insurance RN several times and leave [facility] (Ph. # [phone]) requesting update and endorsing the time sensitivity as patient is on day 2 of avoidable days. Earlier in the day it was reported that information regarding patient has been given to the provider for review and there will likely be a decision today. DCP and PUMP INSTALLER continue to wait for response. PUMP INSTALLER receives calls from SNFs: [facility] states they do not accept [employer], [facility] states that they do not have beds until Wednesday, [facility] but cannot pursue acceptance & auth from [employer] due to current pending auth from [facility]. PUMP INSTALLER and DCP enter room to meet with patient to discuss back up plan as Plan A for acute SNF rehab and plan B for SNF rehab are delayed due to insurance auth. Patient endorses that he resides at home alone in [place] and has concerns for his mobility. Patient endorses he can access [facility] resources. PUMP INSTALLER and DCP discuss HH (PT, OT, RN, HH Aide, PUMP INSTALLER), private pay caregivers and suggesting to reach out to friends and family. Patient endorses his son resides in [place]. PUMP INSTALLER discusses HH options, patient denies preference. Due to patient's location PUMP INSTALLER to set up referral for [facility]. PUMP INSTALLER provides patient with senior resource guide to access private pay caregivers. PUMP INSTALLER and DCP discuss option of private pay SNF and patient denies this as an option. PUMP INSTALLER calls [facility], it is reported that patient could be set up with medical transportation, meals on wheels and aging and disability assessment resources. PUMP INSTALLER requests referrals be set up for all services for patient. PUMP INSTALLER calls [facility] and it is reported they could start services as soon as Wednesday. PUMP INSTALLER to fax clinicals F2F and order for (HH aide, PT, OT, RN and PUMP INSTALLER). PUMP INSTALLER asks patient if PUMP INSTALLER can call son, he reports that son just left yesterday and patient prefers that son not be called until the plan is sorted out. Plan: Plan A - [facility] Acute rehab (accepted, pending [employer] auth), Plan B: [facility] could accept patient but cannot submit auth due to [facility], Plan C: home with HH ([facility]).
--- NOTE | 2022-03-31 16:52 | OT.IP.TRT ---
Current Diagnoses Foot drop, right foot (03/25/22) Other spondylosis with myelopathy, thoracic region (03/25/22) Spinal stenosis, thoracic region (03/25/22) Surgery Performed Operation Date: 03/25/22 14:45 Actual Procedures p T11-12 laminectomy, fusion - Stephen Baker MD Occupational Therapy Treatment Note M2 OT-IP Current Condition Start: 03/26/22 17:20 Freq: Status: Active Protocol: Document 03/26/22 11:35 [facility] (Rec: 03/26/22 17:52 [facility] [id number]) Occupational Therapy Current Condition Current Condition Evaluation Date 03/26/22 Treatment Diagnosis S/p T11-12 TLIF Diagnosis Onset Date 03/25/22 Post Operative Precautions Lumbar Precautions Log Roll,No Twisting,Limit Bending,Lifting Restriction of 10 lbs,Gait Belt above Incisional Area M3 OT- IP Subjective and Pain Start: 03/26/22 17:20 Freq: Status: Active Protocol: Document 03/31/22 16:52 [facility] (Rec: 03/31/22 17:50 [facility] [id number]) OT- Subjective Occupational Therapy Visit Type Type Treatment Note Visit Start Time 16:21 Visit Stop Time 16:52 Total Visit Minutes 31 Occupational Therapy Visit Comments Patient Comments Pt agreed to work with OT regarding LB dressing needs. Patient/Caregiver Goals To get better and be able to do home. Pt very motivated to go to acute rehab. OT Pain Assessment Pain When Pain Assessed At Rest Pain Present Pain Present Denied Pain M4 OT- IP ADL's Start: 03/26/22 17:20 Freq: Status: Active Protocol: Document 03/31/22 16:52 [facility] (Rec: 03/31/22 17:50 [facility] [id number]) OT ADL-Grooming General Evaluation Grooming Ability Independent Areas Needing Assistance Retrieving/Set-up of Grooming Items Comments OT Grooming Comments While seated at the edge of the bed. OT ADL-Oral Care General Eval Oral Care Ability Independent Areas of Assistance Retrieving/Set-Up of Items Comments Oral Care Comments while seated at the edge of the bed OT ADL-Dressing General Eval Lower Body Dressing Ability Maximum Assistance Areas Needing Assistance Pants/Shorts,Socks Comments OT Dressing Comments Able to show pt use of sock aid and furnace keeper. Able to take off his socks while seated on the edge of the bed with increased time. Pt needing JOSE G to help get his right foot into the sock aid as his right toes tends to extend and catches on the sock. Assist to help thread the catheter and through the pants and pt tired to lean side to side to get his pants up and unable to do so at this time. Suggested would be helpful to have larger pants and fabric that would slide better such as nylon. OT ADL-Toileting General Evaluation Toileting Ability Total Assistance Comments OT Toileting Comments Delarosa in place. OT ADL-Bathing Comments OT Bathing Comments Pt states sponged off earlier. M6 OT- IP Functional Cognition Start: 03/26/22 17:20 Freq: Status: Active Protocol: Document 03/31/22 16:52 [facility] (Rec: 03/31/22 17:50 [facility] [id number]) Cognitive Factors Limiting Selfcare Function Cognitive Comments Cognitive Assessment Comments Pt intact to be able to follow directions. M7 OT- IP Mobility and Balance Start: 03/26/22 17:20 Freq: Status: Active Protocol: Document 03/31/22 16:52 [facility] (Rec: 03/31/22 17:50 [facility] [id number]) OT- Bed Mobility Assessment Rolling Type of Rolling Roll to Right Supine to Sit Supine to Sit Assist Standby Assistance Sit to Supine Sit to Supine Assist Minimal Assistance Scooting Scooting to Edge of Bed Standby Assistance OT-Transfer Assessment Comments Mobility Comments SBA to get out to the edge of the bed and JOSE G to assist to get his legs back into the bed . OT- Balance Assessment Sitting Balance and Reactions Static Sitting Balance Ability Good Dynamic Sitting Balance Ability Fair M8 OT- IP Objective Assessments Start: 03/26/22 17:20 Freq: Status: Active Protocol: Document 03/27/22 16:31 [facility] (Rec: 03/27/22 16:44 [facility] [id number]) OT-Muscle Tone Assessment Comments Muscle Tone Comments Increased tone for RLE. RLE tends to want to internally roll in. M9 OT- IP Assessment and Plan Start: 03/26/22 17:20 Freq: Status: Active Protocol: Document 03/31/22 16:52 [facility] (Rec: 03/31/22 17:50 [facility] [id number]) OT Summary Assessment and Plan Potential Rehabilitation Potential Good Analytic Complexity at Evaluation Moderate Summary OT Impairments Pain,Strength,Balance, Coordination,Sensation, Functional Mobility,Grooming, Dressing,Toileting,Bathing, Toilet Transfers,Shower Transfers,Activity Tolerance Progress Towards Goals Progressing Toward Goals,Slow Progress due to Medical Issues Assessment Summary Pt able to initiate LB dressing needs while seated at the edge of the bed for use of furnace keeper and sock aid. Pt right toe extends and needing assist to help to position the sock aid so his right foot able to get in. Pt needing assist to help thread his feet into pants and pt able to initially get the pants up over his knees and initiated leaning side to side to attempt to get the pants up over his hips, but unsuccessful at this time. Pt is very motivated to get better and cooperative and good candidate for acute rehab . Goals Self-Feeding Goal Independent Grooming Goal Independent Dressing Goal Independent Toileting Goal Independent Bathing Goal Independent Toilet Transfer Goal Independent Shower Transfer Goal Independent Days to Meet Goals 50 Frequency of Treatment Frequency Of Treatment Once a Day Treatment Plan OT Treatment Plan ADL Training,Functional Mobility,Patient/Family Education,Discharge Planning Other Treatment Recommendations and Next Sliding board tranfer with MOD Treatment Focus A x1. Discharge Recommendations OT Discharge Recommendations Acute Rehab Transportation Needs at Discharge Stretcher/Ambulance
[2022-03-31] MEDS: OXYCODONE IR 5 MG TABLET PO (18:50)
[2022-03-31] MEDS: ACETAMINOPHEN 325 MG TABLET 650 MG PO (18:51)
[2022-03-31 20:00] VITALS: BP 148/61; PULSE 74; RESP 17; TEMP 36.1; O2SAT 96
[2022-03-31] MEDS: DOCUSATE 100 MG CAPSULE PO (21:56)
[2022-04-01 04:30] VITALS: BP 130/61; PULSE 69; RESP 18; TEMP 36.4; O2SAT 96
--- NOTE | 2022-04-01 07:46 | CM.DPC ---
Addendum entered by Cherrie Palomo R.N. 04/01/22 07:57: [facility] can't pick patient up until 1415, updated nurse, and updated Regine at [facility]. Original Note: DCP Cont: Confirmed with Regine at Acute Inpatient Rehab that they did get insurance auth, and can accept today. It is noted that patient will need BLS transport. Spoke to patient regarding transportation, and did let him know that there may likely be a cost privately for transport, he is aware. [facility] is calling [facility] to work on getting pateint transported at about 10:00. Have put in COVID swab, and do have scripts already, and Lili will kindly fax, along with updated prog notes, DC Summary. Have updated nurse, Erik, and gave him report number. P: Patient is to be discharging today to Acute Inpatient Rehab, via BLS. Cherrie Palomo RN/Breakfast And Room Attendant
--- NOTE | 2022-04-01 07:53 | CM.DPNOTE ---
Called [facility] per Danyelle and spoke with Cyndy for 1415 transport BLS to Inpt. Rehab. Lili Montoya CM Assist.
[2022-04-01 08:10] LABS: COVID19 -Nasal RAPID Negative (Negative)
[2022-04-01 08:39] VITALS: BP 134/55; PULSE 69; RESP 16; TEMP 36.4; O2SAT 99
[2022-04-01 08:53] VITALS: PULSE 72; RESP 18; O2SAT 96
[2022-04-01] MEDS: BUDESONIDE 0.5 MG/2 ML NEB INH (08:53)
[2022-04-01] MEDS: ALBUTEROL 2.5 MG/3 ML NEB (ADULT) INH ×2 (08:53→12:31)
[2022-04-01 09:42] VITALS: BP 138/55; PULSE 72
[2022-04-01] MEDS: DEXAMETHASONE 10 MG/ML VIAL IV (09:42)
[2022-04-01] MEDS: METOPROLOL ER 50 MG TABLET 100 MG PO (09:42)
[2022-04-01] MEDS: lisinopriL 20 MG TABLET 40 MG PO (09:42)
[2022-04-01] MEDS: AMLODIPINE 5 MG TABLET PO (09:42)
[2022-04-01] MEDS: FAMOTIDINE 20 MG TABLET PO (09:42)
[2022-04-01] MEDS: SODIUM CHLORIDE 0.9% FLUSH 10 ML IV (09:43)
[2022-04-01] MEDS: ENOXAPARIN 40 MG/0.4 ML SYRINGE SUBCUT (09:43)
[2022-04-01 12:32] VITALS: PULSE 70; RESP 16; O2SAT 97
[2022-04-01] MEDS: ACETAMINOPHEN 325 MG TABLET 650 MG PO (13:58)
== END 2022-04-01 15:21 | DRG 459 ==
PROVIDERS: Family Medicine; Physician Assistant; Admitting Provider Orthopaedic Surgery Orthopaedic Surgery of the Spine; Family Provider Internal Medicine; PCP Family Medicine; Referring Provider Orthopaedic Surgery Orthopaedic Surgery of the Spine; Visit Provider Orthopaedic Surgery Orthopaedic Surgery of the Spine
PROC: 0RG6071 Fusion of Thoracic Vertebral Joint with Autologous Tissue Substitute, Posterior Approach, Posterior Column, Open Approach (ICD-10-PCS; principal; 2022-03-25 14:45)
DX: M48.04 Spinal stenosis, thoracic region (principal); G95.19 Other vascular myelopathies; M47.14 Other spondylosis with myelopathy, thoracic region; M51.04 Intervertebral disc disorders with myelopathy, thoracic region; M46.04 Spinal enthesopathy, thoracic region; R33.9 Retention of urine, unspecified; K59.00 Constipation, unspecified; I10 Essential (primary) hypertension; J45.909 Unspecified asthma, uncomplicated; R29.818 Other symptoms and signs involving the nervous system; Z20.822 Contact with and (suspected) exposure to COVID-19
CPT/HCPCS: 72070; 76000; 81015; 85014; 85018; 87086; 87635; 94640; 97110; 97162; 97166; 97530; 97535; 97542; C9803; A9270; C9290; J0131; J0171; J0330; J0690; J1100; J1170; J1650; J2405; J2704; J7613